=== PATIENT | male | born 1990 | race Caucasian/White ===

== ENCOUNTER 2016-05-13 14:05 | Inpatient (IN) | payer OTHER ==
[~2016-05-13] VITALS: Ht 182.9 cm; Wt 69.5 kg
[~2016-05-13 14:05] MED LIST: /LAMO10TA; /LAMO10TA PO; /QUET10TA; ABIL2TAB; ABIL400I IM; ABIL5TAB; ADDE5TAB5 PO; ADV100INH INH; ALBU17IN2; ALBU17IN2 INH; BENA25CA2 PO; BENZ2TA PO; BENZ5TA PO; CETI10TA PO; COGE1INJ PO; CONC18TA OR; DEPA1TAB3 PO; DEPA250T2 PO; DEPA250T3 OR; DEPA500T; DEPA500T OR; DEPA500T2; DEPA500T2 PO; DIVA500T9 PO; DIVALPROEX PO; EFFE75CA75 PO; FEROUS SULFATE; FERR325T PO; FERR325T3 PO; FOCALIN XR; Focalin; HALO20TA PO; HALO5TA PO; HYDR25T PO; LAMI25TA; LEXA1TAB2 PO; MOBI7.5T10 PO; NAPR500T2 PO; NEUR600T OR; No Historical Meds; PRIL20CA; PROA1AER IN; PROV90AE; QUET1TAB10 PO; RANI150T PO; RANI15TA PO; RANITIDINE PO; RISP3TAB18 PO; RISP4TAB33 PO; SERO1TAB2 PO; SERO50TA PO; SERT-138 PO; SERT25TA85 PO; SERTRALINE PO; SING10TA31; Singulair; TRAZ100T; TRAZ150T14 PO; TRAZ50TA OR; TRAZ50TA4 PO; TRAZADONE; VENL37TA PO; VOLTERAN; ZOLO100T PO; ZOLO50TA PO; ZRYTEC PO; ZYRT10TA2 PO; haldol PO; prilosec PO; singulair OR; singulair PO
[2016-05-13 14:52] LABS: MEAN CORPUSCULAR HEMOGLOBIN 34.1 pg (27.0-33.0); MEAN CORPUSCULAR HGB CONC 34.8 g/dl (32.0-36.5); MEAN CORPUSCULAR VOLUME 98.1 fl (80.0-96.0); RED CELL DISTRIBUTION WIDTH 12.3 % (11.5-14.5); WHITE BLOOD COUNT 5.5 K/mm3 (4.0-10.0)
[2016-05-13 15:11] LABS: AMPHETAMINES LEVEL URINE NEGATIVE (NEGATIVE); BENZODIAZEPINES URINE NEGATIVE (NEGATIVE); COCAINE METABOLITE URINE NEGATIVE (NEGATIVE); CONTROL LINE INT CTR LINE PRESENT; METHADONE URINE NEGATIVE (NEGATIVE); OPIATES URINE NEGATIVE (NEGATIVE); TRICYCLIC ANTIDEPRESS URINE NEGATIVE (NEGATIVE)
[2016-05-13 15:23] LABS: ALBUMIN 4.1 GM/DL (3.2-5.2); ALBUMIN/GLOBULIN RATIO 1.24 (1.00-1.93); ALKALINE PHOSPHATASE 108 U/L (45-117); ALT/SGPT 484 U/L (12-78); ANION GAP 8 MEQ/L (8-16); AST/SGOT 229 U/L (15-37); BILIRUBIN,DIRECT 0.1 MG/DL (0.0-0.2); BILIRUBIN,TOTAL 0.3 MG/DL (0.2-1.0); BLOOD UREA NITROGEN 18 MG/DL (7-18); CALCIUM LEVEL 8.8 MG/DL (8.5-10.1); CARBON DIOXIDE LEVEL 34 MEQ/L (21-32); CHLORIDE LEVEL 102 MEQ/L (98-107); CREATININE FOR GFR 0.83 MG/DL (0.70-1.30); GLOMERULAR FILTRATION RATE > 60.0 (>60); GLUCOSE, FASTING 50 MG/DL (70-105); POTASSIUM SERUM 3.6 MEQ/L (3.5-5.1); SODIUM LEVEL 144 MEQ/L (136-145); TOTAL PROTEIN 7.4 GM/DL (6.4-8.2)
[2016-05-13] MEDS ORDERED: FLUO-144 TOP (17:37)
[2016-05-13] MEDS ORDERED: DOCU100C PO (17:37)
[2016-05-13] MEDS ORDERED: HALO5OI TOP (17:37)
[2016-05-13] MEDS ORDERED: DIVA250T7 PO (17:37)
[2016-05-13] MEDS ORDERED: MIRA3350 PO (17:37)
[2016-05-13] MEDS ORDERED: QUET1TAB9 PO (17:37)
[2016-05-13] MEDS ORDERED: FEXO60CA PO (17:37)
[2016-05-13] MEDS ORDERED: ENSULIQ2 PO (17:38)
--- NOTE | 2016-05-13 18:30 | EDDOCDS ---
Physician Documentation [facility] Name: Pillo Somers Age: 25 yrs Sex: Male : 1990 Arrival Date: 05/13/2016 Time: 14:05 Bed [facility] Private MD: Izzy Tinsley Disposition: 05/13/16 16:40 Hospitalization ordered by Franki Slater for Inpatient Admission. Preliminary diagnosis is Suicidal ideations. - Bed requested for Admit. - Status is Inpatient Admission. rs3 - Condition is Stable. - Problem is an ongoing problem. - Symptoms are unchanged. Historical: - Allergies: Amitriptyline; Haldol (dyskinesia); Loxapine Succinate; Risperdal (dyskinesia); - Home Meds: 1. ferrous sulfate 325 mg (65 mg iron) Oral cpER twice a day 2. Miralax 17 gram Oral pwpk 1 packet once daily 3. Doc-Q-Lace 100 mg oral cap 2 caps once daily 4. divalproex 250 mg oral TbEC 3 tabs hs 5. fexofenadine 60 mg Oral tab daily 6. quetiapine 200 mg oral Tb24 1 tab once daily 7. ranitidine HCl 150 mg Oral cap 2 times per day 8. escitalopram oxalate 20 mg oral tab 1 tab twice a day - PMHx: Celiac disease; Depression; GERD; bipolar; Constipation, Chronic; ADHD; Schizo-Affective Disorder; - PSHx: tubes in ears; Tonsillectomy; - Social history: Smoking status: Patient uses tobacco products, current every day smoker. No barriers to communication noted, The patient speaks fluent Martiniquais, Speaks appropriately for age. - Family history: Not pertinent. - : The pt / caregiver states he / she is not on anticoagulants. Home medication list is obtained from the patient. - Exposure Risk Screening:: None identified. Vital Signs: 05/13 14:08 BP 98 / 66; Pulse 78; Resp 18 S; Temp 98.0; Pulse Ox 100% on R/A; Weight 52.62 kg / dd6 116.01 lbs (M); Height 6 ft. 0 in. (182.88 cm) (M); 18:23 BP 97 / 65; Pulse 82; Resp 18; Temp 97.5; Pulse Ox 99% on R/A; Pain 0/10; tmm1 14:08 Body Mass Index 15.73 (52.62 kg, 182.88 cm) dd6 MDM: 14:18 Consult PFS/PSA/Marble Installation Helper ordered. sd1 14:18 Consult PFS/PSA/Marble Installation Helper: Patient's case requires discussion with on-call sd1 Psychiatrist ordered. 14:18 PSA/PFS to call Nursing Sous Chef, to enter patient data on [place] Safe Act if patient sd1 involuntarily admitted or transferred for SI or HI ordered. 14:18 Confirm accurate psychiatric medication list and times of last dosage ordered. sd1 14:18 Detain Pt Until Medically/PFS Cleared ordered. sd1 14:20 Acetaminophen Level Ordered. EDMS 14:20 Basic Metabolic Profile Ordered. EDMS 14:20 Complete Blood Count Ordered. EDMS 14:20 Drug Eval Toxicology ED Only Ordered. EDMS 14:20 Ethyl Alcohol (ethanol) Ordered. EDMS 14:20 Liver Profile Ordered. EDMS 14:20 Salicylate Level Ordered. EDMS 14:20 Thyroid Stimulating Hormone Ordered. EDMS 15:36 Financial registration complete. gjb 15:39 [facility] Payment Agreement was scanned into [employer] and attached to record. gjb 16:04 REGULAR DIET ROOM SERVICE ED+DIET ordered. EDMS 16:38 Acetaminophen Level Reviewed. ke 16:38 Basic Metabolic Profile Reviewed. ke 16:38 Complete Blood Count Reviewed. ke 16:38 Liver Profile Reviewed. ke 16:38 Salicylate Level Reviewed. ke 16:38 Drug Eval Toxicology ED Only Reviewed. ke 16:38 Ethyl Alcohol (ethanol) Reviewed. ke 16:38 Thyroid Stimulating Hormone Reviewed. ke 16:40 BED REQUEST+ADM ordered. EDMS 17:00 Consult PFS/PSA/Marble Installation Helper complete. rb 17:23 Admit to [facility]: ordered. EDMS 17:48 [facility] Legal paperwork was scanned into [employer] and attached to record. cs 17:57 [facility] Legal paperwork was scanned into [employer] and attached to record. cs 18:18 Consult PFS/PSA/Marble Installation Helper: Patient's case requires discussion with on-call rb Psychiatrist complete. 18:18 PSA/PFS to call Nursing Sous Chef, to enter patient data [place] Safe [place] if patient rb involuntarily admitted or transferred for SI or HI complete. Signatures: Dispatcher [employer] EDMS Sabrina Diop MD MD sd1 Chela Guerra, RN RN srm Isabella Bonilla, PSA PSA rb Clarke Luke, PSA PSA cs Shawn Díaz, CHOIR LEADER CHOIR LEADER Allyson Hyatt RN RN rs3 Margie Alves The chart was reviewed and I authenticate all verbal orders and agree with the evaluation and treatment provided.Attachments: 15:39 [facility] Payment Agreement gjjuliet [email or web address]
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
[2016-05-13 18:45] VITALS: BP 102/65
[2016-05-13] MEDS ORDERED: MAALOX 30 ML SUSP *UDC PO PRN (20:30)
[2016-05-13] MEDS ORDERED: ALBUTEROL 90 MCG/ACT 8GM HFA INHALER INH PRN (20:30)
[2016-05-13] MEDS ORDERED: HALOBETASOL PROPION 0.05% OINT 15 GM TOP PRN (20:30)
[2016-05-13] MEDS ORDERED: FLUOCINONIDE 0.05% OINT 15 GM TOP PRN (20:30)
[2016-05-13] MEDS ORDERED: traZODone 50 MG TAB PO PRN (20:30)
[2016-05-13] MEDS ORDERED: MOM 30ML SUSPENSION UDC PO PRN (20:30)
[2016-05-13] MEDS: FERROUS SULFATE 325MG TAB PO SCH (21:30)
[2016-05-13] MEDS: DIVALPROEX 250MG *ER* TAB PO SCH (21:30)
[2016-05-13] MEDS: NICOTINE 21MG/24HR 1 EA TRANSDERMAL TD SCH (21:32)
[2016-05-14] MEDS: IBUPROFEN 400 MG TAB PO PRN ×3 (01:01→21:14)
[2016-05-14 06:28] VITALS: BP 105/61
[2016-05-14] MEDS: DOCUSATE SODIUM 100 MG CAP PO SCH (09:11)
[2016-05-14] MEDS: FERROUS SULFATE 325MG TAB PO SCH ×2 (09:11→21:14)
[2016-05-14] MEDS: VENLAFAXINE 37.5 MG TAB PO SCH (09:11)
[2016-05-14] MEDS: MIRALAX *UNIT DOSE* 17GM PACKET PO SCH (09:11)
[2016-05-14] MEDS: FEXOFENADINE 60 MG TAB PO SCH (09:11)
[2016-05-14] MEDS: NICOTINE 21MG/24HR 1 EA TRANSDERMAL TD SCH (09:12)
[2016-05-14] MEDS: ANALGESIC BALM CRM 120 GM TOP PRN ×2 (09:15→21:15)
[2016-05-14 18:04] VITALS: BP 103/64
[2016-05-14] MEDS: DIVALPROEX 250MG *ER* TAB PO SCH (21:14)
[2016-05-15 06:12] VITALS: BP 102/63
[2016-05-15] MEDS ORDERED: INFLUENZA QUADRIVALENT PF VACCINE 0.5ML SYRINGE/VIAL (90686) IM ONE (09:00)
[2016-05-15] MEDS: DOCUSATE SODIUM 100 MG CAP PO SCH (09:00)
[2016-05-15] MEDS: VENLAFAXINE 37.5 MG TAB PO SCH (09:56)
[2016-05-15] MEDS: FERROUS SULFATE 325MG TAB PO SCH ×2 (09:56→21:53)
[2016-05-15] MEDS: FEXOFENADINE 60 MG TAB PO SCH (09:56)
[2016-05-15] MEDS: NICOTINE 21MG/24HR 1 EA TRANSDERMAL TD SCH (09:57)
[2016-05-15] MEDS ORDERED: IBUPROFEN 200 MG TAB PO PRN (16:30)
[2016-05-15] MEDS: ANALGESIC BALM CRM 120 GM TOP PRN (17:22)
[2016-05-15 18:00] VITALS: BP 99/51
[2016-05-15] MEDS: FLUTICASONE PROP 0.05% NASAL SPRAY 16 GM (FLONASE) SCH (18:05)
[2016-05-15 18:33] LABS: INR 0.98
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
--- NOTE | 2016-05-15 19:29 | EDDOCDS ---
Physician Documentation [facility] Name: Pillo Somers Age: 25 yrs Sex: Male : 1990 Arrival Date: 05/13/2016 Time: 14:05 Bed [facility] Private MD: Izzy Tinsley Disposition: 05/13/16 16:40 Hospitalization ordered by Franki Slater for Inpatient Admission. Preliminary diagnosis is Suicidal ideations. - Bed requested for Admit. - Status is Inpatient Admission. rs3 - Condition is Stable. - Problem is an ongoing problem. - Symptoms are unchanged. Historical: - Allergies: Amitriptyline; Haldol (dyskinesia); Loxapine Succinate; Risperdal (dyskinesia); - Home Meds: 1. ferrous sulfate 325 mg (65 mg iron) Oral cpER twice a day 2. Miralax 17 gram Oral pwpk 1 packet once daily 3. Doc-Q-Lace 100 mg oral cap 2 caps once daily 4. divalproex 250 mg oral TbEC 3 tabs hs 5. fexofenadine 60 mg Oral tab daily 6. quetiapine 200 mg oral Tb24 1 tab once daily 7. ranitidine HCl 150 mg Oral cap 2 times per day 8. escitalopram oxalate 20 mg oral tab 1 tab twice a day - PMHx: Celiac disease; Depression; GERD; bipolar; Constipation, Chronic; ADHD; Schizo-Affective Disorder; - PSHx: tubes in ears; Tonsillectomy; - Social history: Smoking status: Patient uses tobacco products, current every day smoker. No barriers to communication noted, The patient speaks fluent Croatian, Speaks appropriately for age. - Family history: Not pertinent. - : The pt / caregiver states he / she is not on anticoagulants. Home medication list is obtained from the patient. - Exposure Risk Screening:: None identified. Vital Signs: 05/13 14:08 BP 98 / 66; Pulse 78; Resp 18 S; Temp 98.0; Pulse Ox 100% on R/A; Weight 52.62 kg / dd6 116.01 lbs (M); Height 6 ft. 0 in. (182.88 cm) (M); 18:23 BP 97 / 65; Pulse 82; Resp 18; Temp 97.5; Pulse Ox 99% on R/A; Pain 0/10; tmm1 14:08 Body Mass Index 15.73 (52.62 kg, 182.88 cm) dd6 MDM: 14:18 Consult PFS/PSA/Aerospace Quality Engineer ordered. sd1 14:18 Consult PFS/PSA/Aerospace Quality Engineer: Patient's case requires discussion with on-call sd1 Psychiatrist ordered. 14:18 PSA/PFS to call Nursing Hadoop Infrastructure Architect, to enter patient data on [place] Safe Act if patient sd1 involuntarily admitted or transferred for SI or HI ordered. 14:18 Confirm accurate psychiatric medication list and times of last dosage ordered. sd1 14:18 Detain Pt Until Medically/PFS Cleared ordered. sd1 14:20 Acetaminophen Level Ordered. EDMS 14:20 Basic Metabolic Profile Ordered. EDMS 14:20 Complete Blood Count Ordered. EDMS 14:20 Drug Eval Toxicology ED Only Ordered. EDMS 14:20 Ethyl Alcohol (ethanol) Ordered. EDMS 14:20 Liver Profile Ordered. EDMS 14:20 Salicylate Level Ordered. EDMS 14:20 Thyroid Stimulating Hormone Ordered. EDMS 15:36 Financial registration complete. gjb 15:39 [facility] Payment Agreement was scanned into [employer] and attached to record. gjb 16:04 REGULAR DIET ROOM SERVICE ED+DIET ordered. EDMS 16:38 Acetaminophen Level Reviewed. ke 16:38 Basic Metabolic Profile Reviewed. ke 16:38 Complete Blood Count Reviewed. ke 16:38 Liver Profile Reviewed. ke 16:38 Salicylate Level Reviewed. ke 16:38 Drug Eval Toxicology ED Only Reviewed. ke 16:38 Ethyl Alcohol (ethanol) Reviewed. ke 16:38 Thyroid Stimulating Hormone Reviewed. ke 16:40 BED REQUEST+ADM ordered. EDMS 17:00 Consult PFS/PSA/Aerospace Quality Engineer complete. rb 17:23 Admit to [facility]: ordered. EDMS 17:48 [facility] Legal paperwork was scanned into [employer] and attached to record. cs 17:57 [facility] Legal paperwork was scanned into [employer] and attached to record. cs 18:18 Consult PFS/PSA/Aerospace Quality Engineer: Patient's case requires discussion with on-call rb Psychiatrist complete. 18:18 PSA/PFS to call Nursing Hadoop Infrastructure Architect, to enter patient data on [place] Safe [place] if patient rb involuntarily admitted or transferred for SI or HI complete. 05/14 08:45 T-Sheet-- Draft Copy was scanned into [employer] and attached to record. [facility] Signatures: Dispatcher [employer] Sabrina Rojas MD MD sd1 Chela Guerra RN RN hitesh Bonilla, Isabella, PSA PSA rb Clarke Luke, PSA PSA Shawn Naqvi, PEWTER FINISHER PEWTER FINISHER Allyson Hyatt RN RN rs3 Margie Alves Sarah [facility] The chart was reviewed and I authenticate all verbal orders and agree with the evaluation and treatment provided.Attachments: 05/13 15:39 [facility] Payment Agreement gjb 05/14 08:45 T-Sheet-- Draft Copy [facility] Chart Complete MTDD
--- NOTE | 2016-05-15 19:29 | EDDOCDS ---
Physician Documentation [facility] Name: Pillo Somers Age: 25 yrs Sex: Male : 1990 Arrival Date: 05/13/2016 Time: 14:05 Bed [facility] Private MD: Izzy Tinsley Disposition: 05/13/16 16:40 Hospitalization ordered by Franki Slater for Inpatient Admission. Preliminary diagnosis is Suicidal ideations. - Bed requested for Admit. - Status is Inpatient Admission. rs3 - Condition is Stable. - Problem is an ongoing problem. - Symptoms are unchanged. Historical: - Allergies: Amitriptyline; Haldol (dyskinesia); Loxapine Succinate; Risperdal (dyskinesia); - Home Meds: 1. ferrous sulfate 325 mg (65 mg iron) Oral cpER twice a day 2. Miralax 17 gram Oral pwpk 1 packet once daily 3. Doc-Q-Lace 100 mg oral cap 2 caps once daily 4. divalproex 250 mg oral TbEC 3 tabs hs 5. fexofenadine 60 mg Oral tab daily 6. quetiapine 200 mg oral Tb24 1 tab once daily 7. ranitidine HCl 150 mg Oral cap 2 times per day 8. escitalopram oxalate 20 mg oral tab 1 tab twice a day - PMHx: Celiac disease; Depression; GERD; bipolar; Constipation, Chronic; ADHD; Schizo-Affective Disorder; - PSHx: tubes in ears; Tonsillectomy; - Social history: Smoking status: Patient uses tobacco products, current every day smoker. No barriers to communication noted, The patient speaks fluent Gambian, Speaks appropriately for age. - Family history: Not pertinent. - : The pt / caregiver states he / she is not on anticoagulants. Home medication list is obtained from the patient. - Exposure Risk Screening:: None identified. Vital Signs: 05/13 14:08 BP 98 / 66; Pulse 78; Resp 18 S; Temp 98.0; Pulse Ox 100% on R/A; Weight 52.62 kg / dd6 116.01 lbs (M); Height 6 ft. 0 in. (182.88 cm) (M); 18:23 BP 97 / 65; Pulse 82; Resp 18; Temp 97.5; Pulse Ox 99% on R/A; Pain 0/10; tmm1 14:08 Body Mass Index 15.73 (52.62 kg, 182.88 cm) dd6 MDM: 14:18 Consult PFS/PSA/Family Day Care Provider ordered. sd1 14:18 Consult PFS/PSA/Family Day Care Provider: Patient's case requires discussion with on-call sd1 Psychiatrist ordered. 14:18 PSA/PFS to call Nursing [employer], to enter patient data on [place] Safe Act if patient sd1 involuntarily admitted or transferred for SI or HI ordered. 14:18 Confirm accurate psychiatric medication list and times of last dosage ordered. sd1 14:18 Detain Pt Until Medically/PFS Cleared ordered. sd1 14:20 Acetaminophen Level Ordered. EDMS 14:20 Basic Metabolic Profile Ordered. EDMS 14:20 Complete Blood Count Ordered. EDMS 14:20 Drug Eval Toxicology ED Only Ordered. EDMS 14:20 Ethyl Alcohol (ethanol) Ordered. EDMS 14:20 Liver Profile Ordered. EDMS 14:20 Salicylate Level Ordered. EDMS 14:20 Thyroid Stimulating Hormone Ordered. EDMS 15:36 Financial registration complete. gjb 15:39 [facility] Payment Agreement was scanned into [employer] and attached to record. gjb 16:04 REGULAR DIET ROOM SERVICE ED+DIET ordered. EDMS 16:38 Acetaminophen Level Reviewed. ke 16:38 Basic Metabolic Profile Reviewed. ke 16:38 Complete Blood Count Reviewed. ke 16:38 Liver Profile Reviewed. ke 16:38 Salicylate Level Reviewed. ke 16:38 Drug Eval Toxicology ED Only Reviewed. ke 16:38 Ethyl Alcohol (ethanol) Reviewed. ke 16:38 Thyroid Stimulating Hormone Reviewed. ke 16:40 BED REQUEST+ADM ordered. EDMS 17:00 Consult PFS/PSA/Family Day Care Provider complete. rb 17:23 Admit to [facility]: ordered. EDMS 17:48 [facility] Legal paperwork was scanned into [employer] and attached to record. cs 17:57 [facility] Legal paperwork was scanned into [employer] and attached to record. cs 18:18 Consult PFS/PSA/Family Day Care Provider: Patient's case requires discussion with on-call rb Psychiatrist complete. 18:18 PSA/PFS to call [employer], to enter patient data [place] Safe [place] if patient rb involuntarily admitted or transferred for SI or HI complete. 05/14 08:45 T-Sheet-- Draft Copy was scanned into [employer] and attached to record. [facility] Signatures: Dispatcher [employer] Sabrina Rojas MD MD sd1 Chela Guerra RN RN hitesh Bonilla, Isabella, PSA PSA rb Clarke Luke, PSA PSA Shawn Naqvi, CABLE SWAGER CABLE SWAGER Allyson Hyatt RN RN rs3 Margie Alves Sarah [facility] The chart was reviewed and I authenticate all verbal orders and agree with the evaluation and treatment provided.Attachments: 05/13 15:39 [facility] [place] Agreement gjb 05/14 08:45 T-Sheet-- Draft Copy [facility] Chart Complete MTDD
[2016-05-15] MEDS: LITHIUM CARBONATE 300 MG CAP PO SCH (21:53)
[2016-05-15] MEDS: IBUPROFEN 400 MG TAB PO SCH (22:00)
--- NOTE | 2016-05-15 23:23 | HPEPDOC ---
[facility] History & Physical History and Physical DATE OF ADMISSION: May 13, 2016 at 18:37 Date of this interview: 05/14/2016 CHIEF COMPLAINT: Suicidal ideations, Worsening depressive symptoms. HISTORY OF THE PRESENT ILLNESS: This is a 25-year-old male with past psychiatric history significant for MDD recurrent severe with psychotic features. This is patient's 13th admission at [facility] mental health unit. Similar to last presentation, patient presents reporting worsening depressive symptoms associated with auditory hallucinations commanding him to kill himself. Of note patient has reportedly lost 100 pounds in the last year and a half. He reports being diagnosed with a gluten allergy and reports being followed by a GI doctor. He reports having a follow-up appointment scheduled in late May 2016. He is status post an upper GI and lower GI scope. Patient reports over the last month worsening agitation and irritability and insomnia as well as ongoing weight loss and worsening auditory hallucinations commanding him to kill himself. Patient has history of suicide attempt last in 2008 by attempting to jump from a moving vehicle. He was last hospitalized with similar symptoms at [facility]. Patient reports compliance with preadmission psychotropic medication regimen which includes Depakote, Lexapro, and Seroquel. Also of note, patient has elevated liver enzymes. Depakote will be stopped. Consult for hospitalist evaluation of elevated over enzymes will be ordered. Historical: - Allergies: Amitriptyline; Haldol (dyskinesia); Loxapine Succinate; Risperdal ( dyskinesia); - Home Meds: 1. ferrous sulfate 325 mg (65 mg iron) Oral cpER twice a day 2. Miralax 17 gram Oral pwpk 1 packet once daily 3. Doc-Q-Lace 100 mg oral cap 2 caps once daily 4. divalproex 250 mg oral TbEC 3 tabs hs 5. fexofenadine 60 mg Oral tab daily 6. quetiapine 200 mg oral Tb24 1 tab once daily 7. ranitidine HCl 150 mg Oral cap 2 times per day 8. escitalopram oxalate 20 mg oral tab 1 tab twice a day - PMHx: Celiac disease; Depression; GERD; bipolar; Constipation, Chronic; ADHD; Schizo-Affective Disorder; - PSHx: tubes in ears; Tonsillectomy; - Social history: Smoking status: Patient uses tobacco products, current every day smoker. No barriers to communication noted, The patient speaks fluent Hebrew, Speaks appropriately for age. - Family history: Not pertinent. - : The pt / caregiver states he / she is not on anticoagulants. Home medication list is obtained from the patient. Substance history: Patient report recent use of cannabis. He denies abuse of alcohol. He denies use of other illicit substances. VITAL SIGNS: Please see below LABORATORY DATA: Please see below. MENTAL STATUS EXAMINATION: Patient is a 35-year-old male, cachectic, disheveled, anxious in manner. Speech:RRR, spontaneous Eye contact: Good Thought processes: Goal-directed Thought content: Logical Description of abnormal or psychotic thoughts: Patient currently denies auditory hallucinations. He reported distressing auditory hallucinations that commanded him to kill himself prior to admission. Judgment: Fair Insight: Poor Orientation to time, place and person. Recent and remote memory: Intact. Immediate short-term and long-term memory is: intact. Attention span and concentration: fair. Mood: [Anxious Affect: Anxious DIAGNOSES: 1. MDD recurrent severe with psychotic features PROBLEM LIST: 1. depression 2. auditory hallucinations 3. SI w/o plan 4. anxiety INITIAL TREATMENT PLAN: 1 consult hospitalist for evaluation of elevated liver enzymes. HIV, HEP C, B, A, D and E ABs ordered. 2. Discontinue Depakote as metabolized by liver. 3. Increase currently prescribed antidepressant Effexor from 75mg to 150mg by mouth daily for depressive symptoms. 4. Patient gives informed consent to start lithium 300 mg by mouth daily at bedtime for mood stabilization ESTIMATED LENGTH OF STAY: 5-7 days. TIME SPENT COUNSELING AND COORDINATING INITIAL CARE: 60 minutes. Laboratory Data 24H Labs Laboratory Tests 2 05/15/16 18:00: Prealbumin 19.7L, Prothromb Time International Ratio 0.98, Prothrombin Time 13.1 Medications Scheduled (Ensure) 1 Liq Liq 1 LIQ PO TID (Reported) Divalproex Sodium (Divalproex Sodium ER) 250 Mg Tab 750 MG PO QHS (Reported) Docusate Sodium (Docusate Sodium) 100 Mg Cap 200 MG PO DAILY (Reported) Escitalopram Oxalate (Lexapro) 20 Mg Tab 20 MG PO DAILY (Reported) Ferrous Sulfate (Ferrous Sulfate) 325 Mg Tab 325 MG PO BID (Reported) Fexofenadine HCl (Fexofenadine HCl) 60 Mg Tab 60 MG PO DAILY (Reported) Polyethylene Glycol (Miralax) 1 Pow Pow 17 GM PO Q2D (Reported) Quetiapine Fumerate (Quetiapine Fumarate) 200 Mg Tab 200 MG PO QHS (Reported) Ranitidine Hcl (Zantac) 150 Mg Tab 150 MG PO BID (Reported) Scheduled PRN Albuterol Sulfate (Proventil Hfa) 167 Puff/6.7 Gm Aers 2 PUFF INH Q4HP PRN PRN SHORTNESS OF BREATH (Reported) Fluocinonide (Fluocinonide 0.05%) 1 Dose/15 Gm Oint 1 DOSE TOP PRN PRN PRN DERMATITIS (Reported) APPLY TO FEET Halobetasol Propionate (Halobetasol Propionate) 0.05 % Oin 1 DOSE TOP PRN PRN PRN DERMATITIS (Reported) APPLY TO FEET Allergies Coded Allergies: Amitriptyline (Verified Allergy, Mild, Rash, 11/26/14) Thioridazine (Verified Allergy, Mild, EPS, 11/26/14) Risperidone (Verified Adverse Reaction, Unknown, EPS, 05/13/16) MASSIEL ALEXANDRE MD May 15, 2016 23:23
--- NOTE | 2016-05-15 23:24 | IPNPDOC ---
[facility] Progress Note Progress Note DATE OF SERVICE: 05/15/16 SUBJECTIVE: Patient anxious regarding pending lab results which may give etiology of elevated liver enzymes. Patient continues to report poor energy, feelings of hopelessness, helplessness, and worthlessness. He reports ongoing significant depression. Patient reports fair appetite and sleep. He denies SI/HI and denies again today prescence of commanding AHs which told him to kill himself. Patient is med compliant. He denies abd pain. He has been no behavioral problem on the unit. OBJECTIVE: VITAL SIGNS: See below. NEW TEST RESULTS: See below. CURRENT MEDICATIONS: See below. VITAL SIGNS: Please see below LABORATORY DATA: Please see below. MENTAL STATUS EXAMINATION: Patient is a 35-year-old male, cachectic, disheveled, anxious in manner. Speech:RRR, spontaneous Eye contact: Good Thought processes: Goal-directed Thought content: concerned with pending results of HEP A-E panels, HIV, and eval from Hospitalist. Description of abnormal or psychotic thoughts: Patient currently denies auditory hallucinations. He reported distressing auditory hallucinations that commanded him to kill himself prior to admission. Judgment: Fair Insight: Poor Orientation to time, place and person. Recent and remote memory: Intact. Immediate short-term and long-term memory is: intact. Attention span and concentration: fair. Mood: [Anxious Affect: Anxious DIAGNOSES: 1. MDD recurrent severe with psychotic features PLAN: 1 PENDING: HIV, HEP C, B, A, D and E ABs ordered. 2. Continue Effexor 150mg by mouth daily for depressive symptoms. 3. Continue [place] 300 mg by mouth daily at bedtime for mood stabilization TIME SPENT: 30 minutes. Vital Signs Vital Signs Date Time Temp Pulse Resp B/P Pulse Ox O2 Delivery O2 Flow Rate FiO2 05/15/16 18:00 98.0 95 16 99/51 05/14/16 08:05 Room Air 05/13/16 18:45 99 Laboratory Data 24H Labs Laboratory Tests 2 05/15/16 18:00: Prealbumin 19.7L, Prothromb Time International Ratio 0.98, Prothrombin Time 13.1 Current Medications Current Medications Medications (Trade) Dose Ordered Sig/Ntaali[place] Route PRN Reason Start Time Stop Time Status Last Admin Dose Admin Al Hydrox/Mg Hydrox/Simethicone (Mylanta) 30 ml Q4HP PRN PO HEARTBURN/INDIGESTION 05/13/16 20:30 06/12/16 20:29 05/13/16 21:30 Albuterol Sulfate (Proventil, Ventolin Hfa) 2 puff Q4HP PRN INH SHORTNESS OF BREATH 05/13/16 20:30 06/12/16 20:29 Carbamide Perox/ Anhydrous Glycerin (Debrox) 10 drop BID AU 05/16/16 09:00 05/19/16 21:01 Clotrimazole (Lotrimin) to rash on feet.and right hand BID TOP 05/16/16 09:00 06/15/16 08:59 Divalproex Sodium (Depakote Er) 750 mg QHS PO 05/13/16 21:00 05/15/16 15:01 DC 05/14/16 21:14 Docusate Sodium (Colace) 200 mg DAILY PO 05/14/16 09:00 06/13/16 08:59 05/14/16 09:11 Famotidine (Pepcid) 20 mg BID PO 05/16/16 09:00 06/15/16 08:59 Ferrous Sulfate (Ferrous Sulfate) 325 mg BID PO 05/13/16 21:00 06/12/16 20:59 05/15/16 21:53 Fexofenadine HCl (Enriqueta) 60 mg DAILY PO 05/14/16 09:00 06/13/16 08:59 05/15/16 09:56 Fluocinonide (Lidex 0.05%) 1 dose BID PRN TOP ITCHING 05/13/16 20:30 06/12/16 20:29 Fluticasone Propionate (Flonase 0.05% Nasal [place]) 2 spray DAILY NA 05/15/16 09:00 06/14/16 08:59 05/15/16 18:05 Halobetasol Propionate (Ultravate 0.05%) 1 dose BIDP PRN TOP DERMATITIS 05/13/16 20:30 06/12/16 20:29 Home Med (Med Rec Complete!) ASDIRECTED XX 05/13/16 17:45 05/13/16 17:45 DC Ibuprofen (Advil) 200 mg Q8HP PRN PO PAIN 05/15/16 16:30 05/15/16 23:02 DC 05/15/16 18:06 Ibuprofen (Advil) 400 mg Q6HP PRN PO PAIN 05/13/16 20:30 05/15/16 16:11 DC 05/14/16 21:14 Ibuprofen (Advil) 400 mg Q8H PO 05/15/16 22:00 06/14/16 21:59 [place] Carbonate ([place] Carbonate) 300 mg QHS PO 05/15/16 21:00 06/14/16 20:59 05/15/16 21:53 Magnesium Hydroxide (Milk Of Magnesia) 30 ml DAILYPRN PRN PO CONSTIPATION 05/13/16 20:30 05/15/16 15:19 DC Menthol/Methyl Salicylate (Bengay Cream) 1 dose BIDP PRN TOP PAIN 05/13/16 20:30 06/12/16 20:29 05/15/16 17:22 Nicotine (Nicoderm Cq 21mg) 1 patch DAILY TD 05/13/16 22:00 06/12/16 21:59 05/15/16 09:57 Polyethylene Glycol (Miralax) 1 pkt Q2D PO 05/14/16 09:00 06/13/16 08:59 05/14/16 09:11 Trazodone HCl (Desyrel) 50 mg QHSP PRN PO INSOMNIA 05/13/16 20:30 05/15/16 15:19 DC Venlafaxine HCl (Effexor) 75 mg DAILY PO 05/14/16 09:00 05/15/16 15:19 DC 05/15/16 09:56 Venlafaxine HCl (Effexor) 150 mg DAILY PO 05/16/16 09:00 06/15/16 08:59 Allergies Coded Allergies: Amitriptyline (Verified Allergy, Mild, Rash, 11/26/14) Thioridazine (Verified Allergy, Mild, EPS, 11/26/14) Risperidone (Verified Adverse Reaction, Unknown, EPS, 05/13/16) MASSIEL ALEXANDRE MD May 15, 2016 23:24
[2016-05-16] MEDS: IBUPROFEN 400 MG TAB PO SCH ×3 (06:02→23:02)
[2016-05-16 06:57] VITALS: BP 118/69
[2016-05-16 06:57] LABS: MEAN CORPUSCULAR HEMOGLOBIN 34.4 pg (27.0-33.0); MEAN CORPUSCULAR HGB CONC 34.5 g/dl (32.0-36.5); MEAN CORPUSCULAR VOLUME 99.6 fl (80.0-96.0); RED CELL DISTRIBUTION WIDTH 12.5 % (11.5-14.5); WHITE BLOOD COUNT 5.2 K/mm3 (4.0-10.0)
[2016-05-16 07:26] LABS: ALBUMIN 3.1 GM/DL (3.2-5.2); ALBUMIN/GLOBULIN RATIO 1.11 (1.00-1.93); ALKALINE PHOSPHATASE 169 U/L (45-117); ALT/SGPT 1339 U/L (12-78); ANION GAP 6 MEQ/L (8-16); AST/SGOT 642 U/L (15-37); BILIRUBIN,DIRECT 0.1 MG/DL (0.0-0.2); BILIRUBIN,TOTAL 0.3 MG/DL (0.2-1.0); BLOOD UREA NITROGEN 15 MG/DL (7-18); CARBON DIOXIDE LEVEL 30 MEQ/L (21-32); CHLORIDE LEVEL 108 MEQ/L (98-107); CREATININE FOR GFR 0.73 MG/DL (0.70-1.30); GLOMERULAR FILTRATION RATE > 60.0 (>60); GLUCOSE, FASTING 85 MG/DL (70-105); SODIUM LEVEL 144 MEQ/L (136-145); TOTAL PROTEIN 5.9 GM/DL (6.4-8.2)
[2016-05-16] MEDS ORDERED: VENLAFAXINE 37.5 MG TAB PO SCH (09:00)
[2016-05-16] MEDS ORDERED: INFLUENZA QUADRIVALENT PF VACCINE 0.5ML SYRINGE/VIAL (90686) IM ONE (09:00)
[2016-05-16] MEDS: MIRALAX *UNIT DOSE* 17GM PACKET PO SCH (09:24)
[2016-05-16] MEDS: FLUTICASONE PROP 0.05% NASAL SPRAY 16 GM (FLONASE) SCH (09:25)
[2016-05-16] MEDS: NICOTINE 21MG/24HR 1 EA TRANSDERMAL TD SCH (09:25)
[2016-05-16] MEDS: DOCUSATE SODIUM 100 MG CAP PO SCH (09:25)
[2016-05-16] MEDS: FEXOFENADINE 60 MG TAB PO SCH (09:25)
[2016-05-16] MEDS: FERROUS SULFATE 325MG TAB PO SCH ×2 (09:25→22:57)
[2016-05-16] MEDS: FAMOTIDINE 20 MG TAB PO SCH ×2 (09:26→22:57)
[2016-05-16] MEDS: CLOTRIMAZOLE 1% TOPICAL CREAM 30GM TOP SCH ×2 (09:26→23:01)
[2016-05-16 11:31] LABS: HEPATITIS B SURFACE ANTIBODY NEGATIVE (POSITIVE)
[2016-05-16] MEDS: CARBAMIDE PEROXIDE 6.5% OTIC SOLN 15ML AU SCH ×2 (11:46→22:59)
--- NOTE | 2016-05-16 12:36 | REP ---
COMPLETE ABDOMINAL SONOGRAPHY WITH PORTAL VENOUS DOPPLER FLOW ASSESSMENT: HISTORY: Hepatitis. SONOGRAPHIC FINDINGS: Scanning through the right upper quadrant of the abdomen demonstrates a small contracted appearing gallbladder without visible stone or polyp. Common bile duct is normal measuring 0.2 cm in greatest diameter. No focal hepatic lesion is seen. Pancreas is obscured by abdominal gas. A normal caliber aorta is seen measuring 2.0 cm just below the diaphragm, AP dimension. There is a trace of fluid near the spleen. Splenic diameter is normal of 9.2 cm and the spleen is homogeneous. Renal cortical echogenicity pattern is normal bilaterally in the kidneys and renal contours are smooth. No hydronephrosis, cyst, mass or calculus is seen on either side. The right kidney measures 10.4 x 5.8 x 6.5 cm. Left renal dimensions are 10.3 x 4.9 x 5.6 cm. Portal venous Doppler flow study: Resistive index in the hepatic artery is normal 0.79. Flow velocity in the splenic vein is 24.3 cm/s in a normal direction. Venous flow velocity in the portal vein is 30.5 cm/s in the normal direction. The main portal vein is 12 mm in diameter. Intrahepatic portal venous flow velocities are normal. Hepatic vein flow velocity tracings are normal. IMPRESSION: Thin sliver of fluid near the spleen. Small contracted appearing gallbladder. No other morphologic abnormality. Normal portal venous Doppler flow assessment. Signed by Ryan Kahn MD 05/16/2016 01:25 P
--- NOTE | 2016-05-16 13:40 | IPNPDOC ---
Assessment/Plan Date Seen The patient was seen on 05/16/16. Problems Problems: (1) Elevated LFTs Status: Acute Problem Text: * RUQ U/S pending * Complete Hepatitis profile pending. * CMP in AM. (2) Chronic bilateral low back pain Status: Chronic Problem Text: * Plan was to request pain mgmt CLT * Check XR LS Spine (3) Rash Status: Acute Problem Text: * Nystatin powder groin folds. Plan / VTE VTE Prophylaxis Ordered?: No (ambulatory) Subjective Review of Systems CC/HPI The patient is a 25-year-old male admitted with a reason for visit of Depressive Do Unspecified. Events since last encounter Requested to see Pt re Elevated LFTs. Pt states he has had rash groin area. requests pain consult for LBP as well. Objective Physical Examination General Exam: Positive: Alert Eye Exam: Positive: PERRLA Chest Exam: Positive: Clear to auscultation, Normal air movement Heart Exam: Positive: Normal S1, Normal S2, Rate Normal, Regular Rhythm, Negative: Murmurs, Rubs Abdomen Exam: Positive: Normal bowel sounds, Soft, Negative: Hepatospenomegaly, Tenderness Skin Exam: Positive: Nl turgor and temperature, Other skin issue (erythematous rash groin folds. ) Neuro Exam: Positive: Normal Gait Vital Signs/I&O Vital Signs Date Time Temp Pulse Resp B/P Pulse Ox O2 Delivery O2 Flow Rate FiO2 05/16/16 06:57 96.8 84 20 118/69 05/14/16 08:05 Room Air 05/13/16 18:45 99 Laboratory Data Labs 24H Laboratory Tests 2 05/15/16 18:00: Hepatitis B Surface Antibody NEGATIVE, Hepatitis B Surface Antigen NEGATIVE, Hepatitis C Antibody Index 0.1, Prealbumin 19.7L, Prothromb Time International Ratio 0.98, Prothrombin Time 13.1 05/16/16 06:30: Blood Urea Nitrogen 15, Creatinine 0.73, Sodium Level 144, Potassium Level 4.0, Chloride Level 108H, Carbon Dioxide Level 30, Calcium Level 8.0L, Aspartate Amino Transf (AST/SGOT) 642H, Alanine Aminotransferase (ALT/SGPT) 1339H, Alkaline Phosphatase 169H, Total Bilirubin 0.3, Direct Bilirubin 0.1, Total Protein 5.9#L, Albumin 3.1#L, Albumin/Globulin Ratio 1.11, Anion Gap 6L, Glomerular Filtration Rate > 60.0 CBC/BMP Laboratory Tests 05/16/16 06:30 Calcium Level 8.0 L, Aspartate Amino Transf (AST/SGOT) 642 H, Alanine Aminotransferase (ALT/SGPT) 1339 H, Alkaline Phosphatase 169 H, Total Bilirubin 0.3, Direct Bilirubin 0.1, Total Protein 5.9 #L, Albumin 3.1 #L, Red Blood Count 3.13 L, Mean Corpuscular Volume 99.6 H, Mean Corpuscular Hemoglobin 34.4 H , Mean Corpuscular Hemoglobin Concent 34.5, Red Cell Distribution Width 12.5 Brandy Davis May 16, 2016 13:40
[2016-05-16 14:36] LABS: HIV SCRN NEGATIVE (NEGATIVE)
[2016-05-16 14:37] LABS: CONTROL LINE INT CTR LINE PRESENT; HIV SCRN1 NEGATIVE (NEGATIVE)
--- NOTE | 2016-05-16 15:01 | REP ---
Lumbar spine series: Five views. History: Low back pain. Comparison study: December 22, 2010. Findings: Lumbar vertebral body heights are preserved. Alignment is normal. There is some straightening of the normal lumbar lordosis, but this is unchanged. Disc spaces are maintained. Pedicles and posterior elements are intact. Sacrum and SI joints are unremarkable. Facets are normally aligned. There is no evidence of spondylolysis or spondylolisthesis. There is a moderate amount of colonic stool. Ingested material is seen distending the stomach. Impression: Straightening. No bony abnormality. Moderate amount of formed stool and some gastric distension seen. Signed by Ryan Kahn MD 05/16/2016 03:21 P
[2016-05-16] MEDS: NYSTATIN 100,000 UNITS/GM TOPICAL PWD 15 GM TOP SCH ×2 (15:29→22:58)
[2016-05-16 18:00] VITALS: BP 102/56
[2016-05-16 19:00] VITALS: BP 112/58
[2016-05-16 19:05] VITALS: BP 116/69
[2016-05-16 19:10] VITALS: BP 109/64
[2016-05-16 19:37] LABS: BASO % 0.6 % (0.0-1.0); EOS # 0.1 K/mm3 (0.0-0.50); LARGE UNSTAINED CELL # 0.1 K/mm3 (0.0-0.4); LARGE UNSTAINED CELL % 1.4 % (0.0-4.0); LYMPH # 1.5 K/mm3 (1.5-6.5); LYMPH % 19.4 % (24.0-44.0); MEAN CORPUSCULAR HEMOGLOBIN 34.2 pg (27.0-33.0); MEAN CORPUSCULAR HGB CONC 34.6 g/dl (32.0-36.5); MEAN CORPUSCULAR VOLUME 98.9 fl (80.0-96.0); MONO # 0.4 K/mm3 (0.0-0.8); MONO % 5.6 % (0.0-5.0); NEUTROPHILS # 5.2 K/mm3 (1.8-7.7); NEUTROPHILS % 71.9 % (36.0-66.0); PLATELET COUNT, AUTOMATED 172 k/mm3 (150-450); RED CELL DISTRIBUTION WIDTH 13.3 % (11.5-14.5); WHITE BLOOD COUNT 7.3 K/mm3 (4.0-10.0)
[2016-05-16 20:07] LABS: ALBUMIN 3.3 GM/DL (3.2-5.2); ALKALINE PHOSPHATASE 199 U/L (45-117); ALT/SGPT 1147 U/L (12-78); ANION GAP 5 MEQ/L (8-16); AST/SGOT 461 U/L (15-37); BILIRUBIN,TOTAL 0.2 MG/DL (0.2-1.0); BLOOD UREA NITROGEN 12 MG/DL (7-18); CALCIUM LEVEL 8.3 MG/DL (8.5-10.1); CARBON DIOXIDE LEVEL 32 MEQ/L (21-32); CHLORIDE LEVEL 107 MEQ/L (98-107); CREATININE FOR GFR 0.71 MG/DL (0.70-1.30); GLOMERULAR FILTRATION RATE > 60.0 (>60); GLUCOSE, FASTING 99 MG/DL (70-105); SODIUM LEVEL 144 MEQ/L (136-145); TOTAL PROTEIN 6.3 GM/DL (6.4-8.2)
--- NOTE | 2016-05-16 20:27 | HPE ---
DATE OF ADMISSION: 05/15/2016 HISTORY OF PRESENT ILLNESS: Please refer to psychiatric history and evaluation for further details on this admission. This examination and history is intended for medical issues, which may need treatment, followup or consultation on this 25-year-old male. ALLERGIES: AMITRIPTYLINE, RISPERIDONE, THIORIDAZINE. PAST MEDICAL HISTORY: 1. Asthma. 2. Bipolar disorder. 3. Attention deficit disorder (ADD). 4. Intermittent explosive disorder. 5. Chronic hyperextension of knees. 6. Iron deficiency. 7. Constipation. 8. Chronic back pain. PAST SURGICAL HISTORY: 1. Tonsillectomy. 2. Adenoidectomy. 3. Pressure equalizing (PE) tubes. 4. Myringotomy bilateral. 5. Colonoscopy age 19 for hematochezia. SOCIAL HISTORY: Resides in [place]. He is single. He smokes about one pack of cigarettes per day. He does not drink alcohol. He does not use recreational drugs. FAMILY HISTORY: Mother alive, history of chronic pulmonary obstructive disease (COPD) and congestive heart failure (CHF). Father alive with COPD and remains incarcerated. HOME MEDICATIONS: - albuterol HFA two puffs every 4 hours as needed for shortness of breath or wheeze - Depakote 750 mg by mouth nightly - Colace 200 mg by mouth daily - Ensure liquid one by mouth three times a day - escitalopram 20 mg by mouth daily - ferrous sulfate 325 by mouth twice a day - fexofenadine 60 mg by mouth daily - fluocinonide 0.05% topically to rash on hands and feet - halobetasol propionate 0.05% ointment twice a day as needed to rash - Seroquel 200 mg by mouth nightly - ranitidine 150 mg by mouth twice a day LABORATORY STUDIES: WBC 5.5, hemoglobin 13.3, hematocrit 38.3, platelets 218. Electrolytes are normal. AST was elevated at 229, ALT of 484. REVIEW OF SYSTEMS: No complaint of headaches, no blurry or double vision, no fever, no chills, no tinnitus, no hoarseness, no difficulty swallowing, no lightheadedness, no vertigo. CARDIOVASCULAR: No complaints of chest pain, shortness of breath, palpitations or edema. RESPIRATORY: No current cough. No sputum production. No hemoptysis. No orthopnea, no wheeze. GASTROINTESTINAL (GI): Weight loss, constipation, no hematochezia, no melena. No current complaints of abdominal pain. GENITOURINARY (): No hematuria, or history of frequency. MUSCULOSKELETAL: Complaining of low back pain. No joint redness or swelling. ENDOCRINE: No polyuria, No polyuria, polydipsia, or polyphagia. HEMATOLOGIC: He has a history of iron deficiency anemia. NEUROLOGICAL: No history of seizures, paresthesias, paralysis. PSYCHOLOGICAL: See psychiatric history of present illness (HPI). PHYSICAL EXAMINATION: 25-year-old, alert, cooperative male in no acute distress. VITAL SIGNS: Height 72 inches, weight 59.1 kilograms. Body mass index (BMI) 17.7. Blood pressure 102/63, pulse 92, respirations 16, temperature 96.7. GENERAL: The patient is awake, alert and oriented times three. HEENT: Pupils equal, round, reactive to light. Extraocular muscles intact. Cornea and sclerae clear. Conjunctiva is normal. No facial asymmetry. Pharynx, tongue and gum is pink and moist. Tongue is midline. NECK: Neck is supple without lymphadenopathy. No thyromegaly. No goiter. CHEST: Clear to auscultation without wheeze or retraction. HEART: Heart is regular. ABDOMEN: Benign. Bowel sounds positive. Genitourinary ()/Rectal: Not done. Extremities: Equal strength with full range of motion. No clubbing, cyanosis, and edema. Peripheral pulses are equal and palpable bilaterally. SKIN: Warm and dry. Bilateral feet are very dry, heels, toes, between toes and scaly. He has some reddened rash at the base of the toes, left greater than right. Left hands between the fingers are red and scaly rash. Hands are dry. Peripheral pulses equal and comparable bilaterally. Tympanic membranes (TMs) have wax bilaterally. IMPRESSION AND PLAN: 1. Wax impactions. Debrox two drops to each ear nightly. 2. Pain consultation for low back pain. States he has it with flexion, extension and ambulation. No tingling or numbness of the extremities. Will consider a pain consult. Advil 400 mg by mouth every 6 hours as needed for pain. 3. Dry, cracked feet. Tinea pedis, add also clotrimazole twice a day to rash on feet and hands in addition to the other ointment. 4. History of asthma, currently stable. 5. History of gastrointestinal reflux disease (GERD), continue famotidine. 6. History of anemia. Continue iron . 7. Nicotine patch available. 8. Dietary consult for low weight. 9. Elevated liver function tests (LFTs). Repeat in the a.m. Hepatitis panel is pending. Ultrasound in the a.m. The patient was also seen by hospitalist , Dr. Whittaker.
[2016-05-16 20:45] LABS: AMYLASE 37 U/L (25-115)
[2016-05-16] MEDS: LITHIUM CARBONATE 300 MG CAP PO SCH (22:57)
[2016-05-17] MEDS: IBUPROFEN 400 MG TAB PO SCH ×3 (06:00→21:54)
--- NOTE | 2016-05-17 06:27 | IPNPDOC ---
[facility] Progress Note Progress Note DATE OF SERVICE: 05/16/16 SUBJECTIVE: Patient anxious regarding pending lab results. He was informed HIV is negative as well as hepatitis B and C. Patient informed remaining hepatitis panels are pending. Patient informed his hemoglobin and hematocrit have dropped significantly. Patient educated on possible syncopal events if he rises from a seated position too fast. She instructed to stand and weight to determine if he is lightheaded before he takes his first step. Patient gives release of information to discussed this case with his sister. Will attempt to get collateral information regarding outpatient GI evaluation. Patient reports his mood as depressed. He denies crying spells. He continues to have appetite within normal limits. He denies history of polydipsia. He reports actually not drinking many fluids today. Patient encouraged to maintain normal 6 -8 cups of water per day fluid intake. Patient continues to report poor energy, feelings of hopelessness, helplessness, and worthlessness. He reports ongoing significant depression. Patient reports fair appetite and sleep. He denies SI/ HI and denies again today denies prescence of commanding AHs which told him to kill himself on admission. Patient is med compliant. He denies abd pain, chest pain nausea vomiting constipation and diarrhea. He does endorse increased back pain and new headache. He has been no behavioral problem on the unit. OBJECTIVE: VITAL SIGNS: See below. NEW TEST RESULTS: See below. CURRENT MEDICATIONS: See below. MENTAL STATUS EXAMINATION: Patient is a 35-year-old male, cachectic, disheveled, lying in bed staring toward the wall, too tired to return to visually engage this provider Speech: Slow rate, rhythm and prosody within normal limits, nonspontaneous Eye contact: poor Thought processes: Goal-directed Thought content: concerned with pending results of HEP A-E panels, HIV, and eval from Hospitalist. Description of abnormal or psychotic thoughts: Patient currently denies auditory hallucinations. He reported distressing auditory hallucinations that commanded him to kill himself prior to admission. Judgment: Fair Insight: Fair Orientation to time, place and person. Recent and remote memory: Intact. Immediate short-term and long-term memory is: intact. Attention span and concentration: fair. Mood: [Anxious Affect: Anxious DIAGNOSES: 1. MDD recurrent severe with psychotic features PLAN: 1. PENDING: HIV- neg, Hep B - neg, Hep C - neg. Remaining Hep - Pending. 2. Recommend follow-up had C serology as patient may not have seroconverted yet. 3. Discontinue Effexor as medication is known to be hepatotoxic. 4. Continue [place] 300 mg by mouth daily at bedtime for mood stabilization 5. Hospitalist rn prior authorization again consulted to further evaluate patient' s acute drop in H&H and ongoing increased LFTs. 6. Patient gives release of his information to discuss his case with his sister. TIME SPENT: 30 minutes. Vital Signs Vital Signs Date Time Temp Pulse Resp B/P Pulse Ox O2 Delivery O2 Flow Rate FiO2 05/16/16 19:10 113 21 109/64 Room Air 05/16/16 19:00 98.4 05/16/16 18:00 99 Laboratory Data 24H Labs Laboratory Tests 2 05/16/16 06:30: Blood Urea Nitrogen 15, Creatinine 0.73, Sodium Level 144, Potassium Level 4.0, Chloride Level 108H, Carbon Dioxide Level 30, Calcium Level 8.0L, Aspartate Amino Transf (AST/SGOT) 642H, Alanine Aminotransferase (ALT/SGPT) 1339H, Alkaline Phosphatase 169H, Total Bilirubin 0.3, Direct Bilirubin 0.1, Total Protein 5.9#L, Albumin 3.1#L, Albumin/Globulin Ratio 1.11, Anion Gap 6L, Glomerular Filtration Rate > 60.0 05/16/16 19:21: Blood Urea Nitrogen 12, Creatinine 0.71, Sodium Level 144, Potassium Level 4.0, Chloride Level 107, Carbon Dioxide Level 32, Calcium Level 8.3L, Aspartate Amino Transf (AST/SGOT) 461H, Alanine Aminotransferase (ALT/SGPT) 1147H, Alkaline Phosphatase 199H, Total Bilirubin 0.2, Total Protein 6.3L, Albumin 3.3 , Albumin/Globulin Ratio 1.10, Anion Gap 5L, Glomerular Filtration Rate > 60.0, Amylase Level 37, White Blood Count 7.3, Red Blood Count 3.35L, Hemoglobin 11.5L , Hematocrit 33.1L, Mean Corpuscular Volume 98.9H, Mean Corpuscular Hemoglobin 34.2H, Mean Corpuscular Hemoglobin Concent 34.6, Red Cell Distribution Width 13.3, Platelet Count 172, Neutrophils (%) (Auto) 71.9H, Lymphocytes (%) (Auto) 19.4L, Monocytes (%) (Auto) 5.6H, Eosinophils (%) (Auto) 1.0, Basophils (%) ( Auto) 0.6, Neutrophils # (Auto) 5.2, Lymphocytes # (Auto) 1.5, Monocytes # (Auto ) 0.4, Eosinophils # (Auto) 0.1, Basophils # (Auto) 0.0, Large Unclassified Cells # 0.1, Large Unclassified Cells % 1.4, Lipase 321 CBC/BMP Laboratory Tests 05/16/16 06:30 Calcium Level 8.0 L, Aspartate Amino Transf (AST/SGOT) 642 H, Alanine Aminotransferase (ALT/SGPT) 1339 H, Alkaline Phosphatase 169 H, Total Bilirubin 0.3, Direct Bilirubin 0.1, Total Protein 5.9 #L, Albumin 3.1 #L, Red Blood Count 3.13 L, Mean Corpuscular Volume 99.6 H, Mean Corpuscular Hemoglobin 34.4 H , Mean Corpuscular Hemoglobin Concent 34.5, Red Cell Distribution Width 12.5 05/16/16 19:21 Calcium Level 8.3 L, Aspartate Amino Transf (AST/SGOT) 461 H, Alanine Aminotransferase (ALT/SGPT) 1147 H, Alkaline Phosphatase 199 H, Total Bilirubin 0.2, Total Protein 6.3 L, Albumin 3.3, Red Blood Count 3.35 L, Mean Corpuscular Volume 98.9 H, Mean Corpuscular Hemoglobin 34.2 H, Mean Corpuscular Hemoglobin Concent 34.6, Red Cell Distribution Width 13.3, Neutrophils (%) (Auto) 71.9 H, Lymphocytes (%) (Auto) 19.4 L, Monocytes (%) (Auto) 5.6 H, Eosinophils (%) (Auto ) 1.0, Basophils (%) (Auto) 0.6, Neutrophils # (Auto) 5.2, Lymphocytes # (Auto) 1.5, Monocytes # (Auto) 0.4, Eosinophils # (Auto) 0.1, Basophils # (Auto) 0.0 Current Medications Current Medications Medications (Trade) Dose Ordered Sig/Nataliya Route PRN Reason Start Time Stop Time Status Last Admin Dose Admin Al Hydrox/Mg Hydrox/Simethicone (Mylanta) 30 ml Q4HP PRN PO HEARTBURN/INDIGESTION 05/13/16 20:30 06/12/16 20:29 05/13/16 21:30 Albuterol Sulfate (Proventil, Ventolin Hfa) 2 puff Q4HP PRN INH SHORTNESS OF BREATH 05/13/16 20:30 06/12/16 20:29 Carbamide Perox/ Anhydrous Glycerin (Debrox) 10 drop BID AU 05/16/16 09:00 05/19/16 21:01 05/16/16 22:59 Clotrimazole (Lotrimin) to rash on feet.and right hand BID TOP 05/16/16 09:00 06/15/16 08:59 05/16/16 23:01 Divalproex Sodium (Depakote Er) 750 mg QHS PO 05/13/16 21:00 05/15/16 15:01 DC 05/14/16 21:14 Docusate Sodium (Colace) 200 mg DAILY PO 05/14/16 09:00 06/13/16 08:59 05/16/16 09:25 Famotidine (Pepcid) 20 mg BID PO 05/16/16 09:00 06/15/16 08:59 05/16/16 22:57 Ferrous Sulfate (Ferrous Sulfate) 325 mg BID PO 05/13/16 21:00 06/12/16 20:59 05/16/16 22:57 Fexofenadine HCl (Enriqueta) 60 mg DAILY PO 05/14/16 09:00 06/13/16 08:59 05/16/16 09:25 Fluocinonide (Lidex 0.05%) 1 dose BID PRN TOP ITCHING 05/13/16 20:30 06/12/16 20:29 Fluticasone Propionate (Flonase 0.05% Nasal Allen) 2 spray DAILY NA 05/15/16 09:00 06/14/16 08:59 05/16/16 09:25 Halobetasol Propionate (Ultravate 0.05%) 1 dose BIDP PRN TOP DERMATITIS 05/13/16 20:30 06/12/16 20:29 Home Med (Med Rec Complete!) ASDIRECTED XX 05/13/16 17:45 05/13/16 17:45 DC Ibuprofen (Advil) 200 mg Q8HP PRN PO PAIN 05/15/16 16:30 05/15/16 23:02 DC 05/15/16 18:06 Ibuprofen (Advil) 400 mg Q6HP PRN PO PAIN 05/13/16 20:30 05/15/16 16:11 DC 05/14/16 21:14 Ibuprofen (Advil) 400 mg Q8H PO 05/15/16 22:00 06/14/16 21:59 05/16/16 23:02 [place] Carbonate ([place] Carbonate) 300 mg QHS PO 05/15/16 21:00 06/14/16 20:59 05/16/16 22:57 Magnesium Hydroxide (Milk Of Magnesia) 30 ml DAILYPRN PRN PO CONSTIPATION 05/13/16 20:30 05/15/16 15:19 DC Menthol/Methyl Salicylate (Bengay Cream) 1 dose BIDP PRN TOP PAIN 05/13/16 20:30 06/12/16 20:29 05/15/16 17:22 Nicotine (Nicoderm Cq 21mg) 1 patch DAILY TD 05/13/16 22:00 06/12/16 21:59 05/16/16 09:25 Nystatin (Mycostatin Powder, Nystop) 1 dose BID TOP 05/16/16 09:00 06/15/16 08:59 05/16/16 22:58 Polyethylene Glycol (Miralax) 1 pkt Q2D PO 05/14/16 09:00 06/13/16 08:59 05/16/16 09:24 Trazodone HCl (Desyrel) 50 mg QHSP PRN PO INSOMNIA 05/13/16 20:30 05/15/16 15:19 DC Venlafaxine HCl (Effexor) 75 mg DAILY PO 05/14/16 09:00 05/15/16 15:19 DC 05/15/16 09:56 Venlafaxine HCl (Effexor) 150 mg DAILY PO 05/16/16 09:00 05/16/16 21:27 DC 05/16/16 09:25 Allergies Coded Allergies: Amitriptyline (Verified Allergy, Mild, Rash, 11/26/14) Thioridazine (Verified Allergy, Mild, EPS, 8/12/15) Risperidone (Verified Adverse Reaction, Unknown, EPS, 05/13/16) MASSIEL ALEXANDRE MD May 17, 2016 06:27
[2016-05-17 06:42] VITALS: BP 104/60
[2016-05-17 07:07] LABS: MEAN CORPUSCULAR HEMOGLOBIN 33.7 pg (27.0-33.0); MEAN CORPUSCULAR HGB CONC 33.2 g/dl (32.0-36.5); MEAN CORPUSCULAR VOLUME 101.7 fl (80.0-96.0); RED CELL DISTRIBUTION WIDTH 13.6 % (11.5-14.5)
[2016-05-17 07:39] LABS: ALBUMIN 3.2 GM/DL (3.2-5.2); ALBUMIN/GLOBULIN RATIO 1.19 (1.00-1.93); ALKALINE PHOSPHATASE 187 U/L (45-117); ALT/SGPT 939 U/L (12-78); ANION GAP 5 MEQ/L (8-16); AST/SGOT 303 U/L (15-37); BILIRUBIN,TOTAL 0.2 MG/DL (0.2-1.0); BLOOD UREA NITROGEN 13 MG/DL (7-18); CARBON DIOXIDE LEVEL 31 MEQ/L (21-32); CHLORIDE LEVEL 109 MEQ/L (98-107); CREATININE FOR GFR 0.85 MG/DL (0.70-1.30); GLOMERULAR FILTRATION RATE > 60.0 (>60); GLUCOSE, FASTING 90 MG/DL (70-105); POTASSIUM SERUM 4.2 MEQ/L (3.5-5.1); SODIUM LEVEL 145 MEQ/L (136-145); TOTAL PROTEIN 5.9 GM/DL (6.4-8.2)
[2016-05-17 08:06] LABS: HBVCOREDIFF2 Negative (Negative)
--- NOTE | 2016-05-17 08:35 | IPNPDOC ---
Assessment/Plan Date Seen The patient was seen on 05/17/16. Problems Problems: (1) Elevated LFTs Status: Acute Problem Text: * RUQ U/S unremarkable. * Hepatitis testing reviewed, hepatitis A result noted. This is reviewed with Dr. Garcia. Add hepatitis A IgM. * Also add hepatitis C RNA. * Add monoscreen. * LFTs are trending downward. Recheck labs in a.m. * Request Gastroenterology records from [facility]. (2) Chronic bilateral low back pain Status: Chronic Problem Text: * pain mgmt CLT * XR LS Spine unremarkable. * Advil as needed * BenGay cream as needed. (3) Rash Status: Acute Problem Text: * Nystatin powder groin folds. Plan / VTE VTE Prophylaxis Ordered?: No (ambulatory) Subjective Review of Systems CC/HPI The patient is a 25-year-old male admitted with a reason for visit of Depressive Do Unspecified. Objective Physical Examination General Exam: Positive: Alert Eye Exam: Positive: PERRLA Chest Exam: Positive: Clear to auscultation, Normal air movement Heart Exam: Positive: Normal S1, Normal S2, Rate Normal, Regular Rhythm, Negative: Murmurs, Rubs Abdomen Exam: Positive: Normal bowel sounds, Soft, Negative: Hepatospenomegaly, Tenderness Skin Exam: Positive: Nl turgor and temperature, Other skin issue (erythematous rash groin folds. ) Neuro Exam: Positive: Normal Gait Vital Signs/I&O Vital Signs Date Time Temp Pulse Resp B/P Pulse Ox O2 Delivery O2 Flow Rate FiO2 05/17/16 06:42 97.8 107 19 104/60 05/16/16 19:10 Room Air 05/16/16 18:00 99 Laboratory Data Labs 24H Laboratory Tests 2 05/16/16 19:21: Blood Urea Nitrogen 12, Creatinine 0.71, Sodium Level 144, Potassium Level 4.0, Chloride Level 107, Carbon Dioxide Level 32, Calcium Level 8.3L, Aspartate Amino Transf (AST/SGOT) 461H, Alanine Aminotransferase (ALT/SGPT) 1147H, Alkaline Phosphatase 199H, Total Bilirubin 0.2, Total Protein 6.3L, Albumin 3.3 , Albumin/Globulin Ratio 1.10, Amylase Level 37, Anion Gap 5L, White Blood Count 7.3, Red Blood Count 3.35L, Hemoglobin 11.5L, Hematocrit 33.1L, Mean Corpuscular Volume 98.9H, Mean Corpuscular Hemoglobin 34.2H, Mean Corpuscular Hemoglobin Concent 34.6, Red Cell Distribution Width 13.3, Platelet Count 172, Neutrophils (%) (Auto) 71.9H, Lymphocytes (%) (Auto) 19.4L, Monocytes (%) (Auto ) 5.6H, Eosinophils (%) (Auto) 1.0, Basophils (%) (Auto) 0.6, Neutrophils # ( Auto) 5.2, Lymphocytes # (Auto) 1.5, Monocytes # (Auto) 0.4, Eosinophils # (Auto ) 0.1, Basophils # (Auto) 0.0, Glomerular Filtration Rate > 60.0, Large Unclassified Cells # 0.1, Large Unclassified Cells % 1.4, Lipase 321 05/17/16 06:42: Blood Urea Nitrogen 13, Creatinine 0.85, Sodium Level 145, Potassium Level 4.2, Chloride Level 109H, Carbon Dioxide Level 31, Calcium Level 8.0L, Aspartate Amino Transf (AST/SGOT) 303H, Alanine Aminotransferase (ALT/SGPT) 939H, Alkaline Phosphatase 187H, Total Bilirubin 0.2, Total Protein 5.9L, Albumin 3.2 , Albumin/Globulin Ratio 1.19, Anion Gap 5L, Glomerular Filtration Rate > 60.0, Lipase 302 CBC/BMP Laboratory Tests 05/16/16 19:21 Calcium Level 8.3 L, Aspartate Amino Transf (AST/SGOT) 461 H, Alanine Aminotransferase (ALT/SGPT) 1147 H, Alkaline Phosphatase 199 H, Total Bilirubin 0.2, Total Protein 6.3 L, Albumin 3.3, Red Blood Count 3.35 L, Mean Corpuscular Volume 98.9 H, Mean Corpuscular Hemoglobin 34.2 H, Mean Corpuscular Hemoglobin Concent 34.6, Red Cell Distribution Width 13.3, Neutrophils (%) (Auto) 71.9 H, Lymphocytes (%) (Auto) 19.4 L, Monocytes (%) (Auto) 5.6 H, Eosinophils (%) (Auto ) 1.0, Basophils (%) (Auto) 0.6, Neutrophils # (Auto) 5.2, Lymphocytes # (Auto) 1.5, Monocytes # (Auto) 0.4, Eosinophils # (Auto) 0.1, Basophils # (Auto) 0.0 05/17/16 06:42 Calcium Level 8.0 L, Aspartate Amino Transf (AST/SGOT) 303 H, Alanine Aminotransferase (ALT/SGPT) 939 H, Alkaline Phosphatase 187 H, Total Bilirubin 0.2, Total Protein 5.9 L, Albumin 3.2, Red Blood Count 3.15 L, Mean Corpuscular Volume 101.7 H, Mean Corpuscular Hemoglobin 33.7 H, Mean Corpuscular Hemoglobin Concent 33.2, Red Cell Distribution Width 13.6 Microbiology Microbiology 05/16/16 Stool Occult Blood (MATT), Received Pending Brandy Davis May 17, 2016 08:35
[2016-05-17] MEDS: DOCUSATE SODIUM 100 MG CAP PO SCH (08:49)
[2016-05-17] MEDS: CLOTRIMAZOLE 1% TOPICAL CREAM 30GM TOP SCH ×2 (08:49→21:56)
[2016-05-17] MEDS: FERROUS SULFATE 325MG TAB PO SCH ×2 (08:49→21:54)
[2016-05-17] MEDS: NICOTINE 21MG/24HR 1 EA TRANSDERMAL TD SCH (08:49)
[2016-05-17] MEDS: FAMOTIDINE 20 MG TAB PO SCH ×2 (08:49→21:55)
[2016-05-17] MEDS: FEXOFENADINE 60 MG TAB PO SCH (08:49)
[2016-05-17] MEDS: FLUTICASONE PROP 0.05% NASAL SPRAY 16 GM (FLONASE) SCH (08:50)
[2016-05-17] MEDS: CARBAMIDE PEROXIDE 6.5% OTIC SOLN 15ML AU SCH ×2 (08:50→21:55)
[2016-05-17] MEDS: NYSTATIN 100,000 UNITS/GM TOPICAL PWD 15 GM TOP SCH ×2 (09:00→21:55)
[2016-05-17 10:00] LABS: CONTROL LINE MONO INT CTR LINE PRESENT
--- NOTE | 2016-05-17 11:05 | EDDOCDS ---
Physician Documentation [facility] Name: Pillo Somers Age: 25 yrs Sex: Male : 1990 Arrival Date: 05/13/2016 Time: 14:05 Bed [facility] Private MD: Izzy Tinsley Disposition: 05/13/16 16:40 Hospitalization ordered by Franki Slater for Inpatient Admission. Preliminary diagnosis is Suicidal ideations. - Bed requested for Admit. - Status is Inpatient Admission. rs3 - Condition is Stable. - Problem is an ongoing problem. - Symptoms are unchanged. Historical: - Allergies: Amitriptyline; Haldol (dyskinesia); Loxapine Succinate; Risperdal (dyskinesia); - Home Meds: 1. ferrous sulfate 325 mg (65 mg iron) Oral cpER twice a day 2. Miralax 17 gram Oral pwpk 1 packet once daily 3. Doc-Q-Lace 100 mg oral cap 2 caps once daily 4. divalproex 250 mg oral TbEC 3 tabs hs 5. fexofenadine 60 mg Oral tab daily 6. quetiapine 200 mg oral Tb24 1 tab once daily 7. ranitidine HCl 150 mg Oral cap 2 times per day 8. escitalopram oxalate 20 mg oral tab 1 tab twice a day - PMHx: Celiac disease; Depression; GERD; bipolar; Constipation, Chronic; ADHD; Schizo-Affective Disorder; - PSHx: tubes in ears; Tonsillectomy; - Social history: Smoking status: Patient uses tobacco products, current every day smoker. No barriers to communication noted, The patient speaks fluent Fijian, Speaks appropriately for age. - Family history: Not pertinent. - : The pt / caregiver states he / she is not on anticoagulants. Home medication list is obtained from the patient. - Exposure Risk Screening:: None identified. Vital Signs: 05/13 14:08 BP 98 / 66; Pulse 78; Resp 18 S; Temp 98.0; Pulse Ox 100% on R/A; Weight 52.62 kg / dd6 116.01 lbs (M); Height 6 ft. 0 in. (182.88 cm) (M); 18:23 BP 97 / 65; Pulse 82; Resp 18; Temp 97.5; Pulse Ox 99% on R/A; Pain 0/10; tmm1 14:08 Body Mass Index 15.73 (52.62 kg, 182.88 cm) dd6 MDM: 14:18 Consult PFS/PSA/Machine Filler Shredder ordered. sd1 14:18 Consult PFS/PSA/Machine Filler Shredder: Patient's case requires discussion with on-call sd1 Psychiatrist ordered. 14:18 PSA/PFS to call Nursing Upset Welding Machine Operator, to enter patient data on [place] Safe Act if patient sd1 involuntarily admitted or transferred for SI or HI ordered. 14:18 Confirm accurate psychiatric medication list and times of last dosage ordered. sd1 14:18 Detain Pt Until Medically/PFS Cleared ordered. sd1 14:20 Acetaminophen Level Ordered. EDMS 14:20 Basic Metabolic Profile Ordered. EDMS 14:20 Complete Blood Count Ordered. EDMS 14:20 Drug Eval Toxicology ED Only Ordered. EDMS 14:20 Ethyl Alcohol (ethanol) Ordered. EDMS 14:20 Liver Profile Ordered. EDMS 14:20 Salicylate Level Ordered. EDMS 14:20 Thyroid Stimulating Hormone Ordered. EDMS 15:36 Financial registration complete. gjb 15:39 REPLACED BY [facility] Payment Agreement was scanned into [employer] and attached to record. gjb 16:04 REGULAR DIET ROOM SERVICE ED+DIET ordered. EDMS 16:38 Acetaminophen Level Reviewed. ke 16:38 Basic Metabolic Profile Reviewed. ke 16:38 Complete Blood Count Reviewed. ke 16:38 Liver Profile Reviewed. ke 16:38 Salicylate Level Reviewed. ke 16:38 Drug Eval Toxicology ED Only Reviewed. ke 16:38 Ethyl Alcohol (ethanol) Reviewed. ke 16:38 Thyroid Stimulating Hormone Reviewed. ke 16:40 BED REQUEST+ADM ordered. EDMS 17:00 Consult PFS/PSA/Machine Filler Shredder complete. rb 17:23 Admit to [facility]: ordered. EDMS 17:48 [facility] Legal paperwork was scanned into [employer] and attached to record. cs 17:57 [facility] Legal paperwork was scanned into [employer] and attached to record. cs 18:18 Consult PFS/PSA/Machine Filler Shredder: Patient's case requires discussion with on-call rb Psychiatrist complete. 18:18 PSA/PFS to call Nursing Upset Welding Machine Operator, to enter patient data [place] Safe [place] if patient rb involuntarily admitted or transferred for SI or HI complete. 05/14 08:45 T-Sheet-- Draft Copy was scanned into [employer] and attached to record. [facility] Signatures: Dispatcher [employer] Sabrina Rojas MD MD sd1 Chela Guerra RN RN hitesh Bonilla, Isabella, PSA PSA rb Clarke Luke, PSA PSA Shawn Naqvi, [employer] Allyson Hyatt RN RN rs3 Margie Alves Sarah [facility] The chart was reviewed and I authenticate all verbal orders and agree with the evaluation and treatment provided.Attachments: 05/13 15:39 [facility] Payment Agreement gjb 05/14 08:45 T-Sheet-- Draft Copy [facility] MTDD
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
--- NOTE | 2016-05-17 11:05 | EDDOCDS ---
Physician Documentation [facility] Name: Pillo Somers Age: 25 yrs Sex: Male : 1990 Arrival Date: 05/13/2016 Time: 14:05 Bed [facility] Private MD: Izzy Tinsley Disposition: 05/13/16 16:40 Hospitalization ordered by Franki Slater for Inpatient Admission. Preliminary diagnosis is Suicidal ideations. - Bed requested for Admit. - Status is Inpatient Admission. rs3 - Condition is Stable. - Problem is an ongoing problem. - Symptoms are unchanged. Historical: - Allergies: Amitriptyline; Haldol (dyskinesia); Loxapine Succinate; Risperdal (dyskinesia); - Home Meds: 1. ferrous sulfate 325 mg (65 mg iron) Oral cpER twice a day 2. Miralax 17 gram Oral pwpk 1 packet once daily 3. Doc-Q-Lace 100 mg oral cap 2 caps once daily 4. divalproex 250 mg oral TbEC 3 tabs hs 5. fexofenadine 60 mg Oral tab daily 6. quetiapine 200 mg oral Tb24 1 tab once daily 7. ranitidine HCl 150 mg Oral cap 2 times per day 8. escitalopram oxalate 20 mg oral tab 1 tab twice a day - PMHx: Celiac disease; Depression; GERD; bipolar; Constipation, Chronic; ADHD; Schizo-Affective Disorder; - PSHx: tubes in ears; Tonsillectomy; - Social history: Smoking status: Patient uses tobacco products, current every day smoker. No barriers to communication noted, The patient speaks fluent Trinidadian, Speaks appropriately for age. - Family history: Not pertinent. - : The pt / caregiver states he / she is not on anticoagulants. Home medication list is obtained from the patient. - Exposure Risk Screening:: None identified. Vital Signs: 05/13 14:08 BP 98 / 66; Pulse 78; Resp 18 S; Temp 98.0; Pulse Ox 100% on R/A; Weight 52.62 kg / dd6 116.01 lbs (M); Height 6 ft. 0 in. (182.88 cm) (M); 18:23 BP 97 / 65; Pulse 82; Resp 18; Temp 97.5; Pulse Ox 99% on R/A; Pain 0/10; tmm1 14:08 Body Mass Index 15.73 (52.62 kg, 182.88 cm) dd6 MDM: 14:18 Consult PFS/PSA/Turner Machine Operator ordered. sd1 14:18 Consult PFS/PSA/Turner Machine Operator: Patient's case requires discussion with on-call sd1 Psychiatrist ordered. 14:18 PSA/PFS to call Nursing Vaccine Key Customer Leader, to enter patient data on [place] Safe Act if patient sd1 involuntarily admitted or transferred for SI or HI ordered. 14:18 Confirm accurate psychiatric medication list and times of last dosage ordered. sd1 14:18 Detain Pt Until Medically/PFS Cleared ordered. sd1 14:20 Acetaminophen Level Ordered. EDMS 14:20 Basic Metabolic Profile Ordered. EDMS 14:20 Complete Blood Count Ordered. EDMS 14:20 Drug Eval Toxicology ED Only Ordered. EDMS 14:20 Ethyl Alcohol (ethanol) Ordered. EDMS 14:20 Liver Profile Ordered. EDMS 14:20 Salicylate Level Ordered. EDMS 14:20 Thyroid Stimulating Hormone Ordered. EDMS 15:36 Financial registration complete. gjb 15:39 COUNTS INCLUDE 234 BEDS AT THE [facility] Payment Agreement was scanned into [employer] and attached to record. gjb 16:04 REGULAR DIET ROOM SERVICE ED+DIET ordered. EDMS 16:38 Acetaminophen Level Reviewed. ke 16:38 Basic Metabolic Profile Reviewed. ke 16:38 Complete Blood Count Reviewed. ke 16:38 Liver Profile Reviewed. ke 16:38 Salicylate Level Reviewed. ke 16:38 Drug Eval Toxicology ED Only Reviewed. ke 16:38 Ethyl Alcohol (ethanol) Reviewed. ke 16:38 Thyroid Stimulating Hormone Reviewed. ke 16:40 BED REQUEST+ADM ordered. EDMS 17:00 Consult PFS/PSA/Turner Machine Operator complete. rb 17:23 Admit to [facility]: ordered. EDMS 17:48 [facility] Legal paperwork was scanned into [employer] and attached to record. cs 17:57 [facility] Legal paperwork was scanned into [employer] and attached to record. cs 18:18 Consult PFS/PSA/Turner Machine Operator: Patient's case requires discussion with on-call rb Psychiatrist complete. 18:18 PSA/PFS to call Nursing Vaccine Key Customer Leader, to enter patient data on [place] Safe [place] if patient rb involuntarily admitted or transferred for SI or HI complete. 05/14 08:45 T-Sheet-- Draft Copy was scanned into [employer] and attached to record. cox monett Signatures: Dispatcher [employer] Sabrina Rojas MD MD sd1 Chela Guerra RN RN hitesh Bonilla, Isabella, PSA PSA rb Clarke Luke, PSA PSA Shawn Naqvi, B2B SALES CONSULTANT B2B SALES CONSULTANT Allyson Hyatt RN RN rs3 Margie Alves Sarah cox monett The chart was reviewed and I authenticate all verbal orders and agree with the evaluation and treatment provided.Attachments: 05/13 15:39 [facility] [place] [place] Payment Agreement gjb 05/14 08:45 T-Sheet-- Draft Copy cox monett MTDD
--- NOTE | 2016-05-17 11:06 | EDDOCDS ---
Physician Documentation [facility] Name: Pillo Somers Age: 25 yrs Sex: Male : 1990 Arrival Date: 05/13/2016 Time: 14:05 Bed [facility] Private MD: Izzy Tinsley Disposition: 05/13/16 16:40 Hospitalization ordered by Franki Slater for Inpatient Admission. Preliminary diagnosis is Suicidal ideations. - Bed requested for Admit. - Status is Inpatient Admission. rs3 - Condition is Stable. - Problem is an ongoing problem. - Symptoms are unchanged. Historical: - Allergies: Amitriptyline; Haldol (dyskinesia); Loxapine Succinate; Risperdal (dyskinesia); - Home Meds: 1. ferrous sulfate 325 mg (65 mg iron) Oral cpER twice a day 2. Miralax 17 gram Oral pwpk 1 packet once daily 3. Doc-Q-Lace 100 mg oral cap 2 caps once daily 4. divalproex 250 mg oral TbEC 3 tabs hs 5. fexofenadine 60 mg Oral tab daily 6. quetiapine 200 mg oral Tb24 1 tab once daily 7. ranitidine HCl 150 mg Oral cap 2 times per day 8. escitalopram oxalate 20 mg oral tab 1 tab twice a day - PMHx: Celiac disease; Depression; GERD; bipolar; Constipation, Chronic; ADHD; Schizo-Affective Disorder; - PSHx: tubes in ears; Tonsillectomy; - Social history: Smoking status: Patient uses tobacco products, current every day smoker. No barriers to communication noted, The patient speaks fluent Australian, Speaks appropriately for age. - Family history: Not pertinent. - : The pt / caregiver states he / she is not on anticoagulants. Home medication list is obtained from the patient. - Exposure Risk Screening:: None identified. Vital Signs: 05/13 14:08 BP 98 / 66; Pulse 78; Resp 18 S; Temp 98.0; Pulse Ox 100% on R/A; Weight 52.62 kg / dd6 116.01 lbs (M); Height 6 ft. 0 in. (182.88 cm) (M); 18:23 BP 97 / 65; Pulse 82; Resp 18; Temp 97.5; Pulse Ox 99% on R/A; Pain 0/10; tmm1 14:08 Body Mass Index 15.73 (52.62 kg, 182.88 cm) dd6 MDM: 14:18 Consult PFS/PSA/Gauge Machine Operator ordered. sd1 14:18 Consult PFS/PSA/Gauge Machine Operator: Patient's case requires discussion with on-call sd1 Psychiatrist ordered. 14:18 PSA/PFS to call Nursing Manager Home, to enter patient data on [place] Safe Act if patient sd1 involuntarily admitted or transferred for SI or HI ordered. 14:18 Confirm accurate psychiatric medication list and times of last dosage ordered. sd1 14:18 Detain Pt Until Medically/PFS Cleared ordered. sd1 14:20 Acetaminophen Level Ordered. EDMS 14:20 Basic Metabolic Profile Ordered. EDMS 14:20 Complete Blood Count Ordered. EDMS 14:20 Drug Eval Toxicology ED Only Ordered. EDMS 14:20 Ethyl Alcohol (ethanol) Ordered. EDMS 14:20 Liver Profile Ordered. EDMS 14:20 Salicylate Level Ordered. EDMS 14:20 Thyroid Stimulating Hormone Ordered. EDMS 15:36 Financial registration complete. gjb 15:39 [facility] Payment Agreement was scanned into [employer] and attached to record. gjb 16:04 REGULAR DIET ROOM SERVICE ED+DIET ordered. EDMS 16:38 Acetaminophen Level Reviewed. ke 16:38 Basic Metabolic Profile Reviewed. ke 16:38 Complete Blood Count Reviewed. ke 16:38 Liver Profile Reviewed. ke 16:38 Salicylate Level Reviewed. ke 16:38 Drug Eval Toxicology ED Only Reviewed. ke 16:38 Ethyl Alcohol (ethanol) Reviewed. ke 16:38 Thyroid Stimulating Hormone Reviewed. ke 16:40 BED REQUEST+ADM ordered. EDMS 17:00 Consult PFS/PSA/Gauge Machine Operator complete. rb 17:23 Admit to [facility]: ordered. EDMS 17:48 [facility] Legal paperwork was scanned into [employer] and attached to record. cs 17:57 [facility] Legal paperwork was scanned into [employer] and attached to record. cs 18:18 Consult PFS/PSA/Gauge Machine Operator: Patient's case requires discussion with on-call rb Psychiatrist complete. 18:18 PSA/PFS to call Nursing Manager Home, to enter patient data on [place] Safe [place] if patient rb involuntarily admitted or transferred for SI or HI complete. 05/14 08:45 T-Sheet-- Draft Copy was scanned into [employer] and attached to record. [facility] Signatures: Dispatcher [employer] Sabrina Rojas MD MD sd1 Chela Guerra RN RN hitesh Bonilla, Isabella, PSA PSA rb Clarke Luke, PSA PSA Shawn Naqvi, CREDIT CARD ASSOCIATE CREDIT CARD ASSOCIATE Allyson Hyatt RN RN rs3 Margie Alves Sarah [facility] The chart was reviewed and I authenticate all verbal orders and agree with the evaluation and treatment provided.Attachments: 05/13 15:39 [facility] [place] gjb 05/14 08:45 T-Sheet-- Draft Copy [facility] Chart Complete MTDD
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
--- NOTE | 2016-05-17 11:06 | EDDOCDS ---
Physician Documentation [facility] Name: Pillo Somers Age: 25 yrs Sex: Male : 1990 Arrival Date: 05/13/2016 Time: 14:05 Bed [facility] Private MD: Izzy Tinsley Disposition: 05/13/16 16:40 Hospitalization ordered by Franki Slater for Inpatient Admission. Preliminary diagnosis is Suicidal ideations. - Bed requested for Admit. - Status is Inpatient Admission. rs3 - Condition is Stable. - Problem is an ongoing problem. - Symptoms are unchanged. Historical: - Allergies: Amitriptyline; Haldol (dyskinesia); Loxapine Succinate; Risperdal (dyskinesia); - Home Meds: 1. ferrous sulfate 325 mg (65 mg iron) Oral cpER twice a day 2. Miralax 17 gram Oral pwpk 1 packet once daily 3. Doc-Q-Lace 100 mg oral cap 2 caps once daily 4. divalproex 250 mg oral TbEC 3 tabs hs 5. fexofenadine 60 mg Oral tab daily 6. quetiapine 200 mg oral Tb24 1 tab once daily 7. ranitidine HCl 150 mg Oral cap 2 times per day 8. escitalopram oxalate 20 mg oral tab 1 tab twice a day - PMHx: Celiac disease; Depression; GERD; bipolar; Constipation, Chronic; ADHD; Schizo-Affective Disorder; - PSHx: tubes in ears; Tonsillectomy; - Social history: Smoking status: Patient uses tobacco products, current every day smoker. No barriers to communication noted, The patient speaks fluent Tongan, Speaks appropriately for age. - Family history: Not pertinent. - : The pt / caregiver states he / she is not on anticoagulants. Home medication list is obtained from the patient. - Exposure Risk Screening:: None identified. Vital Signs: 05/13 14:08 BP 98 / 66; Pulse 78; Resp 18 S; Temp 98.0; Pulse Ox 100% on R/A; Weight 52.62 kg / dd6 116.01 lbs (M); Height 6 ft. 0 in. (182.88 cm) (M); 18:23 BP 97 / 65; Pulse 82; Resp 18; Temp 97.5; Pulse Ox 99% on R/A; Pain 0/10; tmm1 14:08 Body Mass Index 15.73 (52.62 kg, 182.88 cm) dd6 MDM: 14:18 Consult PFS/PSA/Boat Outboard Engine Mechanic ordered. sd1 14:18 Consult PFS/PSA/Boat Outboard Engine Mechanic: Patient's case requires discussion with on-call sd1 Psychiatrist ordered. 14:18 PSA/PFS to call Nursing Lab Head, to enter patient data on [place] Safe Act if patient sd1 involuntarily admitted or transferred for SI or HI ordered. 14:18 Confirm accurate psychiatric medication list and times of last dosage ordered. sd1 14:18 Detain Pt Until Medically/PFS Cleared ordered. sd1 14:20 Acetaminophen Level Ordered. EDMS 14:20 Basic Metabolic Profile Ordered. EDMS 14:20 Complete Blood Count Ordered. EDMS 14:20 Drug Eval Toxicology ED Only Ordered. EDMS 14:20 Ethyl Alcohol (ethanol) Ordered. EDMS 14:20 Liver Profile Ordered. EDMS 14:20 Salicylate Level Ordered. EDMS 14:20 Thyroid Stimulating Hormone Ordered. EDMS 15:36 Financial registration complete. gjb 15:39 [facility] Payment Agreement was scanned into [employer] and attached to record. gjb 16:04 REGULAR DIET ROOM SERVICE ED+DIET ordered. EDMS 16:38 Acetaminophen Level Reviewed. ke 16:38 Basic Metabolic Profile Reviewed. ke 16:38 Complete Blood Count Reviewed. ke 16:38 Liver Profile Reviewed. ke 16:38 Salicylate Level Reviewed. ke 16:38 Drug Eval Toxicology ED Only Reviewed. ke 16:38 Ethyl Alcohol (ethanol) Reviewed. ke 16:38 Thyroid Stimulating Hormone Reviewed. ke 16:40 BED REQUEST+ADM ordered. EDMS 17:00 Consult PFS/PSA/Boat Outboard Engine Mechanic complete. rb 17:23 Admit to [facility]: ordered. EDMS 17:48 [facility] Legal paperwork was scanned into [employer] and attached to record. cs 17:57 [facility] Legal paperwork was scanned into [employer] and attached to record. cs 18:18 Consult PFS/PSA/Boat Outboard Engine Mechanic: Patient's case requires discussion with on-call rb Psychiatrist complete. 18:18 PSA/PFS to call Nursing Lab Head, to enter patient data [place] Safe [place] if patient rb involuntarily admitted or transferred for SI or HI complete. 05/14 08:45 T-Sheet-- Draft Copy was scanned into [employer] and attached to record. [facility] Signatures: Dispatcher [employer] Sabrnia Rojas MD MD sd1 Chela Guerra RN RN hitesh Bonilla, Isabella, PSA PSA rb Clarke Luke, PSA PSA Shawn Naqvi, PATTERNMAKER HAND PATTERNMAKER HAND Allyson Hyatt RN RN rs3 Margie Alves Sarah [facility] The chart was reviewed and I authenticate all verbal orders and agree with the evaluation and treatment provided.Attachments: 05/13 15:39 [facility] [place] Agreement gjb 05/14 08:45 T-Sheet-- Draft Copy [facility] Chart Complete MTDD
[2016-05-17 18:00] VITALS: BP 101/53
[2016-05-17] MEDS ORDERED: hydrOXYzine 25 MG TAB PO PRN (19:45)
--- NOTE | 2016-05-17 19:48 | IPNPDOC ---
[facility] Progress Note Progress Note DATE OF SERVICE: 05/17/16 HISTORY: Patient was seen today to evaluate treatment progress on inpatient unit. Patient remains anxious regarding pending lab results, however, is able to engage appropriately and this afternoon is up out of bed attending to personal hygiene needs. Patient reports moderate symptoms of anxiety and depression, denies suicidal and homicidal ideation, denies current audiovisual hallucinations, denies urge to engage in self-injurious behavior. Patient further denies symptoms of mood lability and anger. Indicates "sometimes at night," he hears voices which sometimes tell him he is not good enough or tell him to kill himself, adds voices do not specify means or plan, and patient adds he does not entertain plans to harm self. Patient is able to agree to notify staff if symptoms of anxiety, depression, audio hallucinations, reemerge and/or become unmanageable. Patient is aware HIV is negative as well as hep B and hep C , also remains aware that his hemoglobin and hematocrit have dropped significantly, PA is monitoring. Patient is able to verbalize how to avoid syncopal events and what symptoms to monitor for. Patient is also aware he will require outpatient GI evaluation. Patient indicates appetite remains normal, he reports reduced energy level, has been encouraged to maintain his fluid intake, notes sleep is poor, and eyes nightmares, and makes request for sleep aid. Patient reports 5/10 pain to legs. Of note: According to ED admission note, patient wrote a suicide note in which she indicated plan to cut wrist prior to hospitalization. VITAL SIGNS: See below. NEW TEST RESULTS: PA is currently evaluating patient's hepatitis status. CURRENT MEDICATIONS: See below. MENTAL STATUS EXAMINATION: Patient is a 35-year-old male, with improved hygiene today, was in bed this morning but is up out of bed this afternoon and tending to personal hygiene needs. Patient is engageable, calm and cooperative, makes good eye contact, appears stated age. Speech: Regular rate, rhythm, volume, coherent Eye contact: Adequate Thought processes: Linear, Goal-directed Thought content: Concerned with testing results, within normal limits, denies suicidal and homicidal ideation, denies urge to engage in self-injurious behavior Description of abnormal or psychotic thoughts: Patient currently denies auditory hallucinations. He reported distressing auditory hallucinations that commanded him to kill himself prior to admission, indicates he sometimes experiences at night. Judgment: Poor Insight: Poor Orientation to time, place and person. Recent and remote memory: Intact. Immediate short-term and long-term memory is: intact. Attention span and concentration: fair. Mood: "A little better I guess." Patient appears mildly anxious and depressed Affect: Constricted, congruent with mood DIAGNOSES: MDD recurrent severe with psychotic features ASSESSMENT: Patient has been isolative to room, but is this afternoon up out of bed attending to personal hygiene needs, is engageable, and is socializing with roommate. Patient reports ongoing symptoms of anxiety and depression, denies suicidal and homicidal ideation, denies current audiovisual hallucinations, indicates he has a history of experiencing audio hallucinations at night telling him he is "no good" and that he should kill himself. Patient is able to agree to alert staff symptoms reemerge and/or become unmanageable. Patient makes inquiry regarding blood work results, was informed that PA is monitoring and will follow up with him one results are known. Patient expresses concerns regarding his physical health, makes request for gluten-free diet, notes he has been losing weight and has been experiencing a decrease in energy level. Patient indicates today he is been sleeping proximately 3 hours per night, makes requests for sleep aid, informs song writer he cannot take Remeron due to history of bedwetting while taking medication, notes trazodone was ineffective, and Seroquel, Lexapro, and Depakote have been discontinued due to hepatotoxicity risks. Patient has been started by weekend provider on lithium, denies medication side effects. Will initiate sleep aid and we'll continue to monitor patient's response to lithium and monitor for medication side effects. Patient indicates he is undecided as to his discharge plan at this time, voices to song writer "I'm hoping to be able to stay until next week to get everything good with my health." MANAGEMENT PLAN: Initiate med trial hydroxyzine 25 mg po hs PRN insomnia, continue [place] 300 mg po hs PENDING: HIV- neg, Hep B - neg, Hep C - neg. Remaining Hep - Pending. Recommend follow-up had C serology as patient may not have seroconverted yet. Maintain discontinued Effexor as medication is known to be hepatotoxic. Continue [place] 300 mg by mouth daily at bedtime for mood stabilization PA is evaluating patient's acute drop in H&H and ongoing increased LFTs. Maintain safety precautions Patient to attend groups and participate in unit programming to develop coping strategies Engage patient in discharge planning process and arrange meeting with command to evaluate safe discharge planning when appropriate Patient to follow up with [facility] upon discharge TIME SPENT: 40 minutes. Vital Signs Vital Signs Date Time Temp Pulse Resp B/P Pulse Ox O2 Delivery O2 Flow Rate FiO2 05/17/16 06:42 97.8 107 19 104/60 05/16/16 19:10 Room Air 05/16/16 18:00 99 Laboratory Data 24H Labs Laboratory Tests 2 05/16/16 19:21: Blood Urea Nitrogen 12, Creatinine 0.71, Sodium Level 144, Potassium Level 4.0, Chloride Level 107, Carbon Dioxide Level 32, Calcium Level 8.3L, Aspartate Amino Transf (AST/SGOT) 461H, Alanine Aminotransferase (ALT/SGPT) 1147H, Alkaline Phosphatase 199H, Total Bilirubin 0.2, Total Protein 6.3L, Albumin 3.3 , Albumin/Globulin Ratio 1.10, Amylase Level 37, Anion Gap 5L, White Blood Count 7.3, Red Blood Count 3.35L, Hemoglobin 11.5L, Hematocrit 33.1L, Mean Corpuscular Volume 98.9H, Mean Corpuscular Hemoglobin 34.2H, Mean Corpuscular Hemoglobin Concent 34.6, Red Cell Distribution Width 13.3, Platelet Count 172, Neutrophils (%) (Auto) 71.9H, Lymphocytes (%) (Auto) 19.4L, Monocytes (%) (Auto ) 5.6H, Eosinophils (%) (Auto) 1.0, Basophils (%) (Auto) 0.6, Neutrophils # ( Auto) 5.2, Lymphocytes # (Auto) 1.5, Monocytes # (Auto) 0.4, Eosinophils # (Auto ) 0.1, Basophils # (Auto) 0.0, Glomerular Filtration Rate > 60.0, Large Unclassified Cells # 0.1, Large Unclassified Cells % 1.4, Lipase 321 05/17/16 06:42: Blood Urea Nitrogen 13, Creatinine 0.85, Sodium Level 145, Potassium Level 4.2, Chloride Level 109H, Carbon Dioxide Level 31, Calcium Level 8.0L, Aspartate Amino Transf (AST/SGOT) 303H, Alanine Aminotransferase (ALT/SGPT) 939H, Alkaline Phosphatase 187H, Total Bilirubin 0.2, Total Protein 5.9L, Albumin 3.2 , Albumin/Globulin Ratio 1.19, Anion Gap 5L, Glomerular Filtration Rate > 60.0, Lipase 302 05/17/16 08:41: 05/17/16 08:42: Monoscreen NEGATIVE CBC/BMP Laboratory Tests 05/16/16 19:21 Calcium Level 8.3 L, Aspartate Amino Transf (AST/SGOT) 461 H, Alanine Aminotransferase (ALT/SGPT) 1147 H, Alkaline Phosphatase 199 H, Total Bilirubin 0.2, Total Protein 6.3 L, Albumin 3.3, Red Blood Count 3.35 L, Mean Corpuscular Volume 98.9 H, Mean Corpuscular Hemoglobin 34.2 H, Mean Corpuscular Hemoglobin Concent 34.6, Red Cell Distribution Width 13.3, Neutrophils (%) (Auto) 71.9 H, Lymphocytes (%) (Auto) 19.4 L, Monocytes (%) (Auto) 5.6 H, Eosinophils (%) (Auto ) 1.0, Basophils (%) (Auto) 0.6, Neutrophils # (Auto) 5.2, Lymphocytes # (Auto) 1.5, Monocytes # (Auto) 0.4, Eosinophils # (Auto) 0.1, Basophils # (Auto) 0.0 05/17/16 06:42 Calcium Level 8.0 L, Aspartate Amino Transf (AST/SGOT) 303 H, Alanine Aminotransferase (ALT/SGPT) 939 H, Alkaline Phosphatase 187 H, Total Bilirubin 0.2, Total Protein 5.9 L, Albumin 3.2, Red Blood Count 3.15 L, Mean Corpuscular Volume 101.7 H, Mean Corpuscular Hemoglobin 33.7 H, Mean Corpuscular Hemoglobin Concent 33.2, Red Cell Distribution Width 13.6 Current Medications Current Medications Medications (Trade) Dose Ordered Sig/Nataliya Route PRN Reason Start Time Stop Time Status Last Admin Dose Admin Al Hydrox/Mg Hydrox/Simethicone (Mylanta) 30 ml Q4HP PRN PO HEARTBURN/INDIGESTION 05/13/16 20:30 06/12/16 20:29 05/13/16 21:30 Albuterol Sulfate (Proventil, Ventolin Hfa) 2 puff Q4HP PRN INH SHORTNESS OF BREATH 05/13/16 20:30 06/12/16 20:29 Carbamide Perox/ Anhydrous Glycerin (Debrox) 10 drop BID AU 05/16/16 09:00 05/19/16 21:01 05/17/16 08:50 Clotrimazole (Lotrimin) to rash on feet.and right hand BID TOP 05/16/16 09:00 06/15/16 08:59 05/17/16 08:49 Divalproex Sodium (Depakote Er) 750 mg QHS PO 05/13/16 21:00 05/15/16 15:01 DC 05/14/16 21:14 Docusate Sodium (Colace) 200 mg DAILY PO 05/14/16 09:00 06/13/16 08:59 05/17/16 08:49 Famotidine (Pepcid) 20 mg BID PO 05/16/16 09:00 06/15/16 08:59 05/17/16 08:49 Ferrous Sulfate (Ferrous Sulfate) 325 mg BID PO 05/13/16 21:00 06/12/16 20:59 05/17/16 08:49 Fexofenadine HCl (Enriqueta) 60 mg DAILY PO 05/14/16 09:00 06/13/16 08:59 05/17/16 08:49 Fluocinonide (Lidex 0.05%) 1 dose BID PRN TOP ITCHING 05/13/16 20:30 06/12/16 20:29 Fluticasone Propionate (Flonase 0.05% Nasal Rowe) 2 spray DAILY NA 05/15/16 09:00 06/14/16 08:59 05/17/16 08:50 Halobetasol Propionate (Ultravate 0.05%) 1 dose BIDP PRN TOP DERMATITIS 05/13/16 20:30 06/12/16 20:29 Home Med (Med Rec Complete!) ASDIRECTED XX 05/13/16 17:45 05/13/16 17:45 DC Ibuprofen (Advil) 200 mg Q8HP PRN PO PAIN 05/15/16 16:30 05/15/16 23:02 DC 05/15/16 18:06 Ibuprofen (Advil) 400 mg Q6HP PRN PO PAIN 05/13/16 20:30 05/15/16 16:11 DC 05/14/16 21:14 Ibuprofen (Advil) 400 mg Q8H PO 05/15/16 22:00 06/14/16 21:59 05/16/16 23:02 [place] Carbonate ([place] Carbonate) 300 mg QHS PO 05/15/16 21:00 06/14/16 20:59 05/16/16 22:57 Magnesium Hydroxide (Milk Of Magnesia) 30 ml DAILYPRN PRN PO CONSTIPATION 05/13/16 20:30 05/15/16 15:19 DC Menthol/Methyl Salicylate (Bengay Cream) 1 dose BIDP PRN TOP PAIN 05/13/16 20:30 06/12/16 20:29 05/15/16 17:22 Nicotine (Nicoderm Cq 21mg) 1 patch DAILY TD 05/13/16 22:00 06/12/16 21:59 05/17/16 08:49 Nystatin (Mycostatin Powder, Nystop) 1 dose BID TOP 05/16/16 09:00 06/15/16 08:59 05/16/16 22:58 Polyethylene Glycol (Miralax) 1 pkt Q2D PO 05/14/16 09:00 06/13/16 08:59 05/16/16 09:24 Trazodone HCl (Desyrel) 50 mg QHSP PRN PO INSOMNIA 05/13/16 20:30 05/15/16 15:19 DC Venlafaxine HCl (Effexor) 75 mg DAILY PO 05/14/16 09:00 05/15/16 15:19 DC 05/15/16 09:56 Venlafaxine HCl (Effexor) 150 mg DAILY PO 05/16/16 09:00 05/16/16 21:27 DC 05/16/16 09:25 Allergies Coded Allergies: Amitriptyline (Verified Allergy, Mild, Rash, 11/26/14) Thioridazine (Verified Allergy, Mild, EPS, 11/26/14) Risperidone (Verified Adverse Reaction, Unknown, EPS, 05/13/16) Indu Flores May 17, 2016 19:48
[2016-05-17] MEDS: LITHIUM CARBONATE 300 MG CAP PO SCH (21:54)
[2016-05-17] MEDS: ANALGESIC BALM CRM 120 GM TOP PRN (21:56)
[2016-05-18] MEDS: IBUPROFEN 400 MG TAB PO SCH ×3 (06:30→21:51)
[2016-05-18 06:36] VITALS: BP 108/62
[2016-05-18 07:09] LABS: MEAN CORPUSCULAR HEMOGLOBIN 34.4 pg (27.0-33.0); MEAN CORPUSCULAR HGB CONC 33.7 g/dl (32.0-36.5); MEAN CORPUSCULAR VOLUME 102.1 fl (80.0-96.0); RED CELL DISTRIBUTION WIDTH 13.2 % (11.5-14.5); WHITE BLOOD COUNT 8.7 K/mm3 (4.0-10.0)
[2016-05-18 07:44] LABS: ALBUMIN 3.3 GM/DL (3.2-5.2); ALBUMIN/GLOBULIN RATIO 1.18 (1.00-1.93); ALKALINE PHOSPHATASE 187 U/L (45-117); ALT/SGPT 727 U/L (12-78); ANION GAP 4 MEQ/L (8-16); AST/SGOT 162 U/L (15-37); BILIRUBIN,TOTAL 0.2 MG/DL (0.2-1.0); BLOOD UREA NITROGEN 15 MG/DL (7-18); CALCIUM LEVEL 8.4 MG/DL (8.5-10.1); CARBON DIOXIDE LEVEL 32 MEQ/L (21-32); CHLORIDE LEVEL 108 MEQ/L (98-107); CREATININE FOR GFR 0.65 MG/DL (0.70-1.30); GLOMERULAR FILTRATION RATE > 60.0 (>60); GLUCOSE, FASTING 77 MG/DL (70-105); SODIUM LEVEL 144 MEQ/L (136-145); TOTAL PROTEIN 6.1 GM/DL (6.4-8.2)
[2016-05-18] MEDS: NYSTATIN 100,000 UNITS/GM TOPICAL PWD 15 GM TOP SCH ×2 (09:00→21:00)
[2016-05-18] MEDS: MIRALAX *UNIT DOSE* 17GM PACKET PO SCH (09:00)
[2016-05-18] MEDS: CLOTRIMAZOLE 1% TOPICAL CREAM 30GM TOP SCH ×2 (09:00→21:00)
[2016-05-18] MEDS: FLUTICASONE PROP 0.05% NASAL SPRAY 16 GM (FLONASE) SCH (09:18)
[2016-05-18] MEDS: CARBAMIDE PEROXIDE 6.5% OTIC SOLN 15ML AU SCH ×2 (09:18→21:00)
[2016-05-18] MEDS: FERROUS SULFATE 325MG TAB PO SCH ×2 (09:18→21:51)
[2016-05-18] MEDS: FAMOTIDINE 20 MG TAB PO SCH ×2 (09:18→21:51)
[2016-05-18] MEDS: DOCUSATE SODIUM 100 MG CAP PO SCH (09:18)
[2016-05-18] MEDS: NICOTINE 21MG/24HR 1 EA TRANSDERMAL TD SCH (09:19)
[2016-05-18] MEDS: FEXOFENADINE 60 MG TAB PO SCH (09:19)
[2016-05-18 18:00] VITALS: BP 116/86
[2016-05-18] MEDS ORDERED: zolPIDEM TARTRATE 5 MG TAB PO PRN (18:15)
--- NOTE | 2016-05-18 18:21 | IPNPDOC ---
[facility] Progress Note Progress Note DATE OF SERVICE: 05/18/16 HISTORY: Patient was seen today to evaluate treatment progress on inpatient unit. Patient remains anxious regarding pending lab results and US. Patient is observed to be up and out of bed during day, indicates he is attending groups, engaging selectively with peers. Patient reports anxiety /10, depression /, denies suicidal and homicidal thinking, denies audiovisual hallucinations, denies urge to engage in self-injurious behavior. Patient indicates he continues to experience intermittent audio hallucinations "at night as when I hear them; in the past they have been fixed by good sleep." Patient denies command element to audio hallucinations. Patient indicates he took hydroxyzine last night for sleep and states medication was ineffective, informs jingle writer today he has taken medication at higher dose with poor effect. Patient states lithium is helpful in stabilizing mood and reducing impulsivity and patient indicates he feels less depressed since starting medication. Patient remains agreeable to notify staff if symptoms of anxiety, depression, audio hallucinations, reemerge and/or become unmanageable. Patient is able to verbalize how to avoid syncopal events and what symptoms to monitor for. Patient is also aware he will require outpatient GI evaluation. Patient indicates appetite remains normal, he reports reduced energy level, has been encouraged to maintain his fluid intake, notes sleep remains poor, denies nightmares, and makes new request for sleep aid. Patient reports ongoing moderate pain to legs and back. Of note: Discovered in one of his testing results entries, patient apparently has a reported history of eating cat food. Also of note: According to ED admission note, patient wrote a suicide note in which he indicated plan to cut wrist prior to hospitalization. VITAL SIGNS: See below. NEW TEST RESULTS: JOCE is currently evaluating patient's US, lab results and hepatitis testing status. At time of admission patient reported Celiac disease ( not confirmed by testing), GERD, history of constipation. CURRENT MEDICATIONS: See below. MENTAL STATUS EXAMINATION: Patient is a 35-year-old male, with improved hygiene today, was in bed this morning but is up out of bed this afternoon and tending to personal hygiene needs. Patient is engageable, calm and cooperative, makes good eye contact, appears stated age. Speech: Regular rate, rhythm, volume, coherent Eye contact: Adequate Thought processes: Linear, Goal-directed Thought content: Remains concerned with testing results, otherwise within normal limits, denies suicidal and homicidal ideation, denies urge to engage in self-injurious behavior Description of abnormal or psychotic thoughts: Patient currently denies auditory hallucinations. He reported distressing auditory hallucinations that commanded him to kill himself prior to admission, indicates he sometimes experiences at night, denies command element to current symptoms and denies experiencing plan or intent to harm self or others Judgment: Poor Insight: Poor Orientation to time, place and person. Recent and remote memory: Intact. Immediate short-term and long-term memory is: intact. Attention span and concentration: fair. Mood: "A little better." Patient appears mildly anxious and depressed Affect: Constricted, congruent with mood DIAGNOSES: Unspecified mood disorder, rule out bipolar disorder, rule out MDD recurrent severe with psychotic features, ADHD reported history ASSESSMENT: Patient has been visible on unit and participating in groups, is engageable, socializes with roommate. Patient reports ongoing symptoms of anxiety and depression, denies suicidal and homicidal ideation, denies current audiovisual hallucinations, indicates he has a history of experiencing audio hallucinations at night telling him he is "no good" and that he should kill himself. Patient is able to agree to alert staff symptoms reemerge and/or become unmanageable. Patient makes inquiry regarding blood work results, was informed that PA is monitoring and will follow up with him one results are known. Patient expresses concerns regarding his physical health. Patient states he took hydroxyzine for sleep last night with no effect, and is today making new request for sleep aid. Patient reports history of recreational alcohol consumption and marijuana use, denies all substance use since 2012 and, due to patient's physical health status and history of trialing other medications, jingle writer discussed short-term use of Ambien to address sleep challenges. Patient was educated on potential risks, benefits, side effects and possibility for dependence with Ambien and was informed that prescription would be for shortest duration needed and patient would not be discharged on medication; patient verbalized understanding. Prior to admission patient had also been taking Seroquel, Lexapro, and Depakote which were discontinued due to hepatotoxicity risks. Patient was been started by weekend provider on lithium, denies medication side effects. Will initiate sleep aid and we'll continue to monitor patient's response to lithium and monitor need for dosing adjustment and medication side effects. Patient indicates he remains undecided as to his discharge plan at this time, informs jingle writer today he is not willing to return to previous outpatient providers at [facility], but is willing to consider outpatient treatment options other than those available in [place]. MANAGEMENT PLAN: Discontinue hydroxyzine 25 mg po hs PRN insomnia. Initiate med trial Ambien 5 mg by mouth PRN insomnia, continue [place] 300 mg po hs PA is evaluating patient's acute drop in H&H and ongoing increased LFTs. Maintain safety precautions Patient to attend groups and participate in unit programming to develop coping strategies Engage patient in discharge planning process and arrange meeting with support system to ensure discharge planning when appropriate Patient to follow up with PCM and carton making machine operator upon discharge TIME SPENT: 35 minutes. Vital Signs Vital Signs Date Time Temp Pulse Resp B/P Pulse Ox O2 Delivery O2 Flow Rate FiO2 05/18/16 06:36 98.0 92 18 108/62 05/16/16 19:10 Room Air 05/16/16 18:00 99 Laboratory Data 24H Labs Laboratory Tests 2 05/18/16 06:38: Blood Urea Nitrogen 15, Creatinine 0.65L, Sodium Level 144, Potassium Level 4.0 , Chloride Level 108H, Carbon Dioxide Level 32, Calcium Level 8.4L, Aspartate Amino Transf (AST/SGOT) 162H, Alanine Aminotransferase (ALT/SGPT) 727H, Alkaline Phosphatase 187H, Total Bilirubin 0.2, Total Protein 6.1L, Albumin 3.3 , Albumin/Globulin Ratio 1.18, Anion Gap 4L, Glomerular Filtration Rate > 60.0 CBC/BMP Laboratory Tests 05/18/16 06:38 Calcium Level 8.4 L, Aspartate Amino Transf (AST/SGOT) 162 H, Alanine Aminotransferase (ALT/SGPT) 727 H, Alkaline Phosphatase 187 H, Total Bilirubin 0.2, Total Protein 6.1 L, Albumin 3.3, Red Blood Count 3.32 L, Mean Corpuscular Volume 102.1 H, Mean Corpuscular Hemoglobin 34.4 H, Mean Corpuscular Hemoglobin Concent 33.7, Red Cell Distribution Width 13.2 Current Medications Current Medications Medications (Trade) Dose Ordered Sig/Nataliya Route PRN Reason Start Time Stop Time Status Last Admin Dose Admin Al Hydrox/Mg Hydrox/Simethicone (Mylanta) 30 ml Q4HP PRN PO HEARTBURN/INDIGESTION 05/13/16 20:30 06/12/16 20:29 05/13/16 21:30 Albuterol Sulfate (Proventil, Ventolin Hfa) 2 puff Q4HP PRN INH SHORTNESS OF BREATH 05/13/16 20:30 06/12/16 20:29 Carbamide Perox/ Anhydrous Glycerin (Debrox) 10 drop BID AU 05/16/16 09:00 05/19/16 21:01 05/18/16 09:18 Clotrimazole (Lotrimin) to rash on feet.and right hand BID TOP 05/16/16 09:00 06/15/16 08:59 05/17/16 21:56 Divalproex Sodium (Depakote Er) 750 mg QHS PO 05/13/16 21:00 05/15/16 15:01 DC 05/14/16 21:14 Docusate Sodium (Colace) 200 mg DAILY PO 05/14/16 09:00 06/13/16 08:59 05/18/16 09:18 Famotidine (Pepcid) 20 mg BID PO 05/16/16 09:00 06/15/16 08:59 05/18/16 09:18 Ferrous Sulfate (Ferrous Sulfate) 325 mg BID PO 05/13/16 21:00 06/12/16 20:59 05/18/16 09:18 Fexofenadine HCl (Enriqueta) 60 mg DAILY PO 05/14/16 09:00 06/13/16 08:59 05/18/16 09:19 Fluocinonide (Lidex 0.05%) 1 dose BID PRN TOP ITCHING 05/13/16 20:30 06/12/16 20:29 Fluticasone Propionate (Flonase 0.05% Nasal [place]) 2 spray DAILY NA 05/15/16 09:00 06/14/16 08:59 05/18/16 09:18 Halobetasol Propionate (Ultravate 0.05%) 1 dose BIDP PRN TOP DERMATITIS 05/13/16 20:30 06/12/16 20:29 Home Med (Med Rec Complete!) ASDIRECTED XX 05/13/16 17:45 05/13/16 17:45 DC Hydroxyzine HCl (Vistaril) 25 mg QHSP PRN PO INSOMNIA 05/17/16 19:45 05/18/16 18:11 DC Ibuprofen (Advil) 200 mg Q8HP PRN PO PAIN 05/15/16 16:30 05/15/16 23:02 DC 05/15/16 18:06 Ibuprofen (Advil) 400 mg Q6HP PRN PO PAIN 05/13/16 20:30 05/15/16 16:11 DC 05/14/16 21:14 Ibuprofen (Advil) 400 mg Q8H PO 05/15/16 22:00 06/14/16 21:59 05/18/16 14:47 [place] Carbonate ([place] Carbonate) 300 mg QHS PO 05/15/16 21:00 06/14/16 20:59 05/17/16 21:54 Magnesium Hydroxide (Milk Of Magnesia) 30 ml DAILYPRN PRN PO CONSTIPATION 05/13/16 20:30 05/15/16 15:19 DC Menthol/Methyl Salicylate (Bengay Cream) 1 dose BIDP PRN TOP PAIN 05/13/16 20:30 06/12/16 20:29 05/17/16 21:56 Nicotine (Nicoderm Cq 21mg) 1 patch DAILY TD 05/13/16 22:00 06/12/16 21:59 05/18/16 09:19 Nystatin (Mycostatin Powder, Nystop) 1 dose BID TOP 05/16/16 09:00 06/15/16 08:59 05/17/16 21:55 Polyethylene Glycol (Miralax) 1 pkt Q2D PO 05/14/16 09:00 06/13/16 08:59 05/16/16 09:24 Trazodone HCl (Desyrel) 50 mg QHSP PRN PO INSOMNIA 05/13/16 20:30 05/15/16 15:19 DC Venlafaxine HCl (Effexor) 75 mg DAILY PO 05/14/16 09:00 05/15/16 15:19 DC 05/15/16 09:56 Venlafaxine HCl (Effexor) 150 mg DAILY PO 05/16/16 09:00 05/16/16 21:27 DC 05/16/16 09:25 Zolpidem Tartrate (Ambien) 5 mg QHSP PRN PO INSOMNIA 05/18/16 18:15 05/25/16 18:14 UNV Allergies Coded Allergies: Amitriptyline (Verified Allergy, Mild, Rash, 11/26/14) Thioridazine (Verified Allergy, Mild, EPS, 11/26/14) Risperidone (Verified Adverse Reaction, Unknown, EPS, 05/13/16) Indu Flores May 18, 2016 18:21 Thioridazine (Verified Allergy, Mild, EPS, 11/26/14) Risperidone (Verified Adverse Reaction, Unknown, EPS, 05/13/16) Indu Flores May 18, 2016 18:21
[2016-05-18] MEDS: LITHIUM CARBONATE 300 MG CAP PO SCH (21:51)
[2016-05-19] MEDS: IBUPROFEN 400 MG TAB PO SCH ×3 (06:06→21:29)
[2016-05-19 06:46] VITALS: BP 115/89
[2016-05-19 06:55] LABS: MEAN CORPUSCULAR HEMOGLOBIN 34.4 pg (27.0-33.0); MEAN CORPUSCULAR VOLUME 104.3 fl (80.0-96.0); WHITE BLOOD COUNT 10.1 K/mm3 (4.0-10.0)
[2016-05-19 07:20] LABS: ALBUMIN 3.3 GM/DL (3.2-5.2); ALBUMIN/GLOBULIN RATIO 1.22 (1.00-1.93); ALKALINE PHOSPHATASE 176 U/L (45-117); ALT/SGPT 541 U/L (12-78); ANION GAP 6 MEQ/L (8-16); AST/SGOT 90 U/L (15-37); BILIRUBIN,TOTAL 0.2 MG/DL (0.2-1.0); BLOOD UREA NITROGEN 19 MG/DL (7-18); CALCIUM LEVEL 8.2 MG/DL (8.5-10.1); CARBON DIOXIDE LEVEL 29 MEQ/L (21-32); CHLORIDE LEVEL 109 MEQ/L (98-107); CREATININE FOR GFR 0.64 MG/DL (0.70-1.30); GLOMERULAR FILTRATION RATE > 60.0 (>60); GLUCOSE, FASTING 82 MG/DL (70-105); POTASSIUM SERUM 3.9 MEQ/L (3.5-5.1); SODIUM LEVEL 144 MEQ/L (136-145)
[2016-05-19 07:23] LABS: PERCENT SATURATION 39.9 % (19.7-37.4)
[2016-05-19] MEDS: FLUTICASONE PROP 0.05% NASAL SPRAY 16 GM (FLONASE) SCH (08:56)
[2016-05-19] MEDS: CARBAMIDE PEROXIDE 6.5% OTIC SOLN 15ML AU SCH ×2 (08:56→21:00)
[2016-05-19] MEDS: DOCUSATE SODIUM 100 MG CAP PO SCH (08:57)
[2016-05-19] MEDS: FERROUS SULFATE 325MG TAB PO SCH ×2 (08:57→21:29)
[2016-05-19] MEDS: FAMOTIDINE 20 MG TAB PO SCH ×2 (08:57→21:29)
[2016-05-19] MEDS: NYSTATIN 100,000 UNITS/GM TOPICAL PWD 15 GM TOP SCH ×2 (08:58→21:00)
[2016-05-19] MEDS: NICOTINE 21MG/24HR 1 EA TRANSDERMAL TD SCH (08:58)
[2016-05-19] MEDS: FEXOFENADINE 60 MG TAB PO SCH (08:58)
[2016-05-19] MEDS: CLOTRIMAZOLE 1% TOPICAL CREAM 30GM TOP SCH ×2 (08:58→21:00)
[2016-05-19 10:21] LABS: FOLATE 9.3 NG/ML (>5.4)
[2016-05-19 14:15] LABS: HEPATITIS C QUANTITATION HCV Not Detected IU/mL (.)
--- NOTE | 2016-05-19 17:13 | IPNPDOC ---
[facility] Progress Note Progress Note DATE OF SERVICE: 05/19/16 HISTORY: Patient was seen today to evaluate treatment progress on inpatient unit. Patient remains anxious regarding pending lab results and US. Patient is observed to be up and out of bed during day, indicates he is attending most groups, engaging selectively with peers. Patient reports anxiety 2/10, depression 5/10, denies suicidal and homicidal thinking, denies audiovisual hallucinations, denies urge to engage in self-injurious behavior. Patient states he has not heard audio hallucinations (generally experienced at night), 2 days and states he has not experienced suicidal ideation 2 days as well. When patient last experienced audio hallucinations he indicates subject of sensory experience was "suicidal stuff," denies having plan or intent to harm self or others at the time. Patient indicates she continues to feel irritable and impulsive at times, and describes symptoms of mood lability, is today requesting dose increase to lithium in effort to further stabilize mood, denies medication side effects. Patient states he did not take Ambien last night for sleep due to "it was already really tired and didn't feel like I needed a sleep aid." Patient states he slept well, is aware that sleep aid is to be taken as needed, denies nightmares symptoms. Patient remains agreeable to notify staff if symptoms of anxiety, depression, audio hallucinations, reemerge and/or become unmanageable. Patient remains aware he will require outpatient GI evaluation. Patient informs telegraphic typewriter operator chief today he spoke with PA confirmed patient does not have celiac disease and patient makes request for order change for regular diet. Patient states appetite remains normal, reports ongoing decreased energy level, reports improvement sleep and reports ongoing moderate pain to legs and back. Of note: Discovered in one of his testing results entries, patient apparently has a reported history of eating cat food. Also of note: According to ED admission note, patient wrote a suicide note in which he indicated plan to cut wrist prior to hospitalization, patient verifies history of desire to harm, not kill, others, informs telegraphic typewriter operator chief he has never had plan or intent. VITAL SIGNS: See below. NEW TEST RESULTS: PA is currently evaluating patient's US, lab results and hepatitis testing status. At time of admission patient reported Celiac disease ( not confirmed by testing), GERD, history of constipation. CURRENT MEDICATIONS: See below. MENTAL STATUS EXAMINATION: Patient is a 35-year-old male, with improved hygiene today, was in bed at time of interaction but sat up readily to engage with telegraphic typewriter operator chief, appears disheveled. Patient is engageable, calm and cooperative, makes good eye contact, appears stated age. Speech: Regular rate, rhythm, volume, coherent Eye contact: Adequate Thought processes: Linear, Goal-directed Thought content: Remains concerned with testing results, otherwise within normal limits, denies suicidal and homicidal ideation, denies urge to engage in self-injurious behavior Description of abnormal or psychotic thoughts: Patient currently denies auditory hallucinations. He reported distressing auditory hallucinations that commanded him to kill himself prior to admission, indicates he sometimes experiences at night, denies X 2 days and denies command element to symptoms, denies experiencing plan or intent to harm self or others Judgment: Poor Insight: Poor Orientation to time, place and person. Recent and remote memory: Intact. Immediate short-term and long-term memory is: intact. Attention span and concentration: fair. Mood: "A little better." Patient appears less depressed and anxious today Affect: Constricted, but brightens, congruent with mood DIAGNOSES: Unspecified mood disorder, rule out bipolar disorder, rule out MDD recurrent severe with psychotic features, ADHD reported history ASSESSMENT: Patient has been visible on unit and participating in groups, is engageable, socializes with roommate and select peers. Patient reports ongoing symptoms of anxiety and depression, denies suicidal and homicidal ideation, denies current audiovisual hallucinations, indicates he has a history of experiencing audio hallucinations at night telling him he is "no good" and that he should kill himself. Patient is able to agree to alert staff symptoms reemerge and/or become unmanageable. Patient makes request for increased lithium dosing to further address symptoms of irritability and impulsivity. Patient makes inquiry regarding blood work results, was informed that PA is monitoring and will follow up with him one results are known. Patient expresses concerns regarding his physical health. Patient did not trial Sleep-Aid last night due to lack of need, remains aware medication is available to him on an as -needed basis. Patient reports history of recreational alcohol consumption and marijuana use, denies all substance use since 2012 and, due to patient's physical health status and history of trialing other medications, telegraphic typewriter operator chief again discussed short-term use of Ambien to address sleep challenges. Patient was again educated on potential risks, benefits, side effects and possibility for dependence with Ambien and was informed that prescription would be for shortest duration needed and patient would not be discharged on medication; patient verbalized understanding. Prior to admission patient had also been taking Seroquel, Lexapro, and Depakote which were discontinued due to hepatotoxicity risks. Patient was been started by weekend provider on lithium, feels medication is helpful, requests dose increase and denies medication side effects. Will increase [place] in effort to reduce impulsivity and irritability , continue sleep aid as needed. Will continue to monitor patient's response to lithium and monitor need for dosing adjustment and labs when indicated. Patient states he wants to discharge to home with sister when stable; sister has agreed patient may reside with her. Patient reiterates today he is not willing to return to previous outpatient providers at [facility], but is willing to consider outpatient treatment options other than those available in [place]. MANAGEMENT PLAN: Increase lithium to 300 mg po BID, continue Ambien 5 mg by mouth PRN insomnia PA is evaluating patient's acute drop in H&H and ongoing increased LFTs. Maintain safety precautions Patient to attend groups and participate in unit programming to develop coping strategies Engage patient in discharge planning process and arrange meeting with support system to ensure discharge planning when appropriate Patient to follow up with PCM and hot billet shear operator upon discharge TIME SPENT: 35 minutes. Vital Signs Vital Signs Date Time Temp Pulse Resp B/P Pulse Ox O2 Delivery O2 Flow Rate FiO2 05/19/16 06:46 96.4 88 20 115/89 05/16/16 19:10 Room Air 05/16/16 18:00 99 Laboratory Data 24H Labs Laboratory Tests 2 05/19/16 06:19: Blood Urea Nitrogen 19H, Creatinine 0.64L, Sodium Level 144, Potassium Level 3.9 , Chloride Level 109H, Carbon Dioxide Level 29, Calcium Level 8.2L, Aspartate Amino Transf (AST/SGOT) 90H, Alanine Aminotransferase (ALT/SGPT) 541H, Alkaline Phosphatase 176H, Total Bilirubin 0.2, Total Protein 6.0L, Albumin 3.3, Albumin/ Globulin Ratio 1.22, Anion Gap 6L, Ferritin 344, Folate 9.3, Glomerular Filtration Rate > 60.0, Iron Level 115, Total Iron Binding Capacity 288, Transferrin % Saturation 39.9H, Vitamin B12 Level 635 CBC/BMP Laboratory Tests 05/19/16 06:19 Calcium Level 8.2 L, Aspartate Amino Transf (AST/SGOT) 90 H, Alanine Aminotransferase (ALT/SGPT) 541 H, Alkaline Phosphatase 176 H, Total Bilirubin 0.2, Total Protein 6.0 L, Albumin 3.3, Red Blood Count 3.34 L, Mean Corpuscular Volume 104.3 H, Mean Corpuscular Hemoglobin 34.4 H, Mean Corpuscular Hemoglobin Concent 33.0, Red Cell Distribution Width 14.0 Current Medications Current Medications Medications (Trade) Dose Ordered Sig/Nataliya Route PRN Reason Start Time Stop Time Status Last Admin Dose Admin Al Hydrox/Mg Hydrox/Simethicone (Mylanta) 30 ml Q4HP PRN PO HEARTBURN/INDIGESTION 05/13/16 20:30 06/12/16 20:29 05/13/16 21:30 Albuterol Sulfate (Proventil, Ventolin Hfa) 2 puff Q4HP PRN INH SHORTNESS OF BREATH 05/13/16 20:30 06/12/16 20:29 Carbamide Perox/ Anhydrous Glycerin (Debrox) 10 drop BID AU 05/16/16 09:00 05/19/16 21:01 05/19/16 08:56 Clotrimazole (Lotrimin) to rash on feet.and right hand BID TOP 05/16/16 09:00 06/15/16 08:59 05/17/16 21:56 Divalproex Sodium (Depakote Er) 750 mg QHS PO 05/13/16 21:00 05/15/16 15:01 DC 05/14/16 21:14 Docusate Sodium (Colace) 200 mg DAILY PO 05/14/16 09:00 06/13/16 08:59 05/19/16 08:57 Famotidine (Pepcid) 20 mg BID PO 05/16/16 09:00 06/15/16 08:59 05/19/16 08:57 Ferrous Sulfate (Ferrous Sulfate) 325 mg BID PO 05/13/16 21:00 06/12/16 20:59 05/19/16 08:57 Fexofenadine HCl (Enriqueta) 60 mg DAILY PO 05/14/16 09:00 06/13/16 08:59 05/19/16 08:58 Fluocinonide (Lidex 0.05%) 1 dose BID PRN TOP ITCHING 05/13/16 20:30 06/12/16 20:29 Fluticasone Propionate (Flonase 0.05% Nasal [place]) 2 spray DAILY NA 05/15/16 09:00 06/14/16 08:59 05/19/16 08:56 Halobetasol Propionate (Ultravate 0.05%) 1 dose BIDP PRN TOP DERMATITIS 05/13/16 20:30 06/12/16 20:29 Home Med (Med Rec Complete!) ASDIRECTED XX 05/13/16 17:45 05/13/16 17:45 DC Hydroxyzine HCl (Vistaril) 25 mg QHSP PRN PO INSOMNIA 05/17/16 19:45 05/18/16 18:11 DC Ibuprofen (Advil) 200 mg Q8HP PRN PO PAIN 05/15/16 16:30 05/15/16 23:02 DC 05/15/16 18:06 Ibuprofen (Advil) 400 mg Q6HP PRN PO PAIN 05/13/16 20:30 05/15/16 16:11 DC 05/14/16 21:14 Ibuprofen (Advil) 400 mg Q8H PO 05/15/16 22:00 06/14/16 21:59 05/19/16 15:30 [place] Carbonate ([place] Carbonate) 300 mg QHS PO 05/15/16 21:00 06/14/16 20:59 05/18/16 21:51 Magnesium Hydroxide (Milk Of Magnesia) 30 ml DAILYPRN PRN PO CONSTIPATION 05/13/16 20:30 05/15/16 15:19 DC Menthol/Methyl Salicylate (Bengay Cream) 1 dose BIDP PRN TOP PAIN 05/13/16 20:30 06/12/16 20:29 05/17/16 21:56 Nicotine (Nicoderm Cq 21mg) 1 patch DAILY TD 05/13/16 22:00 06/12/16 21:59 05/19/16 08:58 Nystatin (Mycostatin Powder, Nystop) 1 dose BID TOP 05/16/16 09:00 06/15/16 08:59 05/17/16 21:55 Polyethylene Glycol (Miralax) 1 pkt Q2D PO 05/14/16 09:00 06/13/16 08:59 05/16/16 09:24 Trazodone HCl (Desyrel) 50 mg QHSP PRN PO INSOMNIA 05/13/16 20:30 05/15/16 15:19 DC Venlafaxine HCl (Effexor) 75 mg DAILY PO 05/14/16 09:00 05/15/16 15:19 DC 05/15/16 09:56 Venlafaxine HCl (Effexor) 150 mg DAILY PO 05/16/16 09:00 05/16/16 21:27 DC 05/16/16 09:25 Zolpidem Tartrate (Ambien) 5 mg QHSP PRN PO INSOMNIA 05/18/16 18:15 05/25/16 18:14 Allergies Coded Allergies: Amitriptyline (Verified Allergy, Mild, Rash, 11/26/14) Thioridazine (Verified Allergy, Mild, EPS, 11/26/14) Risperidone (Verified Adverse Reaction, Unknown, EPS, 05/13/16) Indu Flores May 19, 2016 17:12
[2016-05-19 18:00] VITALS: BP 98/52
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
[2016-05-19] MEDS: LITHIUM CARBONATE 300 MG CAP PO SCH (21:29)
[2016-05-20] MEDS: IBUPROFEN 400 MG TAB PO SCH ×3 (06:04→22:14)
[2016-05-20 06:42] VITALS: BP 88/50
[2016-05-20 07:03] LABS: MEAN CORPUSCULAR HGB CONC 33.4 g/dl (32.0-36.5); MEAN CORPUSCULAR VOLUME 104.8 fl (80.0-96.0); RED CELL DISTRIBUTION WIDTH 14.2 % (11.5-14.5); WHITE BLOOD COUNT 11.7 K/mm3 (4.0-10.0)
[2016-05-20 07:14] LABS: REASON FOR REVIEW COMPREHENSIVE REVIEW
[2016-05-20 07:16] LABS: RETIC HEMOGLOBIN CONTENT CHr 37.2 PG (24-36); RETICULOCYTE ABSOLUTE ADVIA212 150 x10(9)/L (17-77)
[2016-05-20 07:40] LABS: ALBUMIN 3.4 GM/DL (3.2-5.2); ALBUMIN/GLOBULIN RATIO 1.21 (1.00-1.93); ALKALINE PHOSPHATASE 158 U/L (45-117); ALT/SGPT 407 U/L (12-78); ANION GAP 7 MEQ/L (8-16); AST/SGOT 54 U/L (15-37); BILIRUBIN,TOTAL 0.3 MG/DL (0.2-1.0); BLOOD UREA NITROGEN 19 MG/DL (7-18); CALCIUM LEVEL 8.2 MG/DL (8.5-10.1); CARBON DIOXIDE LEVEL 29 MEQ/L (21-32); CHLORIDE LEVEL 107 MEQ/L (98-107); CREATININE FOR GFR 0.66 MG/DL (0.70-1.30); GLOMERULAR FILTRATION RATE > 60.0 (>60); GLUCOSE, FASTING 80 MG/DL (70-105); POTASSIUM SERUM 3.9 MEQ/L (3.5-5.1); SODIUM LEVEL 143 MEQ/L (136-145); TOTAL PROTEIN 6.2 GM/DL (6.4-8.2)
[2016-05-20] MEDS: LITHIUM CARBONATE 300 MG CAP PO SCH ×2 (08:30→22:10)
[2016-05-20] MEDS: MIRALAX *UNIT DOSE* 17GM PACKET PO SCH (08:30)
[2016-05-20] MEDS: FERROUS SULFATE 325MG TAB PO SCH ×2 (08:30→22:10)
[2016-05-20] MEDS: DOCUSATE SODIUM 100 MG CAP PO SCH (08:30)
[2016-05-20] MEDS: NYSTATIN 100,000 UNITS/GM TOPICAL PWD 15 GM TOP SCH ×2 (08:31→21:00)
[2016-05-20] MEDS: NICOTINE 21MG/24HR 1 EA TRANSDERMAL TD SCH (08:31)
[2016-05-20] MEDS: FEXOFENADINE 60 MG TAB PO SCH (08:31)
[2016-05-20] MEDS: CLOTRIMAZOLE 1% TOPICAL CREAM 30GM TOP SCH ×2 (08:31→21:00)
[2016-05-20] MEDS: FLUTICASONE PROP 0.05% NASAL SPRAY 16 GM (FLONASE) SCH (08:31)
[2016-05-20] MEDS: FAMOTIDINE 20 MG TAB PO SCH ×2 (08:31→22:09)
--- NOTE | 2016-05-20 15:23 | IPNPDOC ---
Assessment/Plan Date Seen The patient was seen on 05/20/16. Problems Problems: (1) Elevated LFTs Status: Acute Problem Text: * RUQ U/S unremarkable. * Hepatitis testing reviewed, hepatitis A result noted. This is reviewed with Dr. Garcia. hepatitis A IgM neg. * hepatitis C RNA neg. * monoscreen neg * LFTs are trending downward. Recheck labs in a.m. * Gastroenterology records from [facility] with [place]- poor prep/EGD mild gastritis. Celiac neg. H Pylori neg. * Per pt outpt Liver Biopsy planned per GI [place]. * LFTs Continue to trend downward. * Peripheral smear requested. (MCV elevated) * SPEP requested. (2) Chronic bilateral low back pain Status: Chronic Problem Text: * pain mgmt CLT * XR LS Spine unremarkable. * Advil as needed * BenGay cream as needed. (3) Rash Status: Acute Problem Text: * Nystatin powder groin folds. Plan / VTE VTE Prophylaxis Ordered?: No (ambulatory) Subjective Review of Systems CC/HPI The patient is a 25-year-old male admitted with a reason for visit of Depressive Do Unspecified. Events since last encounter Pt with no new complaints. Objective Physical Examination General Exam: Positive: Alert Eye Exam: Positive: PERRLA Chest Exam: Positive: Clear to auscultation, Normal air movement Heart Exam: Positive: Normal S1, Normal S2, Rate Normal, Regular Rhythm, Negative: Murmurs, Rubs Abdomen Exam: Positive: Normal bowel sounds, Soft, Negative: Hepatospenomegaly, Tenderness Skin Exam: Positive: Nl turgor and temperature, Other skin issue (erythematous rash groin folds. ) Neuro Exam: Positive: Normal Gait Vital Signs/I&O Vital Signs Date Time Temp Pulse Resp B/P Pulse Ox O2 Delivery O2 Flow Rate FiO2 05/20/16 06:42 96.9 84 20 88/50 05/16/16 19:10 Room Air 05/16/16 18:00 99 Laboratory Data Labs 24H Laboratory Tests 2 05/20/16 06:33: Absolute Reticulocyte Count 150H, Blood Urea Nitrogen 19H, Creatinine 0.66L, Sodium Level 143, Potassium Level 3.9, Chloride Level 107, Carbon Dioxide Level 29, Calcium Level 8.2L, Aspartate Amino Transf (AST/SGOT) 54H, Alanine Aminotransferase (ALT/SGPT) 407H, Alkaline Phosphatase 158H, Total Bilirubin 0.3 , Total Protein 6.2L, Albumin 3.4, Albumin/Globulin Ratio 1.21, Anion Gap 7L, Differential Pathologist's Review COMPREHENSIVE REVIEW, Differential Slide Review Report, Glomerular Filtration Rate > 60.0, Percent Reticulocyte Count 4.50H, Peripheral Blood Smear Path Consult PERIPHERAL SMEAR, Reticulocyte Hgb Content (CHr) 37.2H CBC/BMP Laboratory Tests 05/20/16 06:33 Calcium Level 8.2 L, Aspartate Amino Transf (AST/SGOT) 54 H, Alanine Aminotransferase (ALT/SGPT) 407 H, Alkaline Phosphatase 158 H, Total Bilirubin 0.3, Total Protein 6.2 L, Albumin 3.4, Red Blood Count 3.30 L, Mean Corpuscular Volume 104.8 H, Mean Corpuscular Hemoglobin 35.0 H, Mean Corpuscular Hemoglobin Concent 33.4, Red Cell Distribution Width 14.2 Microbiology Microbiology 05/16/16 Stool Occult Blood (MATT) - Final, Complete Brandy Davis May 20, 2016 15:23
[2016-05-20 18:00] VITALS: BP 109/59
--- NOTE | 2016-05-20 18:34 | IPNPDOC ---
[facility] Progress Note Progress Note DATE OF SERVICE: 05/20/16 HISTORY: Patient was seen today to evaluate treatment progress on inpatient unit. Patient remains anxious regarding pending lab results and US. Patient is observed to be up and out of bed during day, indicates he is attending most groups, engaging selectively with peers. Patient today reports anxiety 2/10, depression 4/10, initially denies suicidal and homicidal ideation, then indicates "sometimes" he has thoughts of harming self, denies experiencing plan or intent and is able to agree to alert staff if symptoms worsen or become unmanageable, further denies thoughts of harming others. Patient denies audiovisual hallucinations and denies urge to engage in self-injurious behavior. Patient denies recent symptoms of audiovisual hallucinations. Patient reports reduced irritability with lithium dose increase, continues to feel impulsive but feels symptoms are improving, indicates mood feels more level and denies medication side effects. Patient took Ambien 5 mg last night and states medication worked well, denies nightmares. Patient verbalizes awareness that Sleep-Aid is to be used when needed and will be changed once patient's physical health status has stabilized. Patient remains agreeable to notify staff if symptoms of anxiety, depression, audio hallucinations, reemerge and/or become unmanageable. Patient remains aware he will require outpatient GI evaluation. Patient states appetite has improved and energy level is beginning to improve. Patient reports ongoing moderate pain to legs and back. Of note: Discovered in one of his testing results entries, patient apparently has a reported history of eating cat food. Also of note: According to ED admission note, patient wrote a suicide note in which he indicated plan to cut wrist prior to hospitalization, patient verified history of desire to harm, not kill, others, informs principal technical writer he has never had plan or intent. VITAL SIGNS: See below. NEW TEST RESULTS: PA is currently evaluating patient's US, lab results and hepatitis testing status. At time of admission patient reported Celiac disease ( not confirmed by testing), GERD, history of constipation. CURRENT MEDICATIONS: See below. MENTAL STATUS EXAMINATION: Patient is a 35-year-old male, was in bed at time of interaction but sat up readily to engage with principal technical writer, appears disheveled. Patient is engageable, calm and cooperative, makes good eye contact, appears stated age. Speech: Regular rate, rhythm, volume, coherent Eye contact: Adequate Thought processes: Linear, Goal-directed Thought content: Remains concerned with testing results, otherwise within normal limits, denies current suicidal and homicidal ideation, denies urge to engage in self-injurious behavior Description of abnormal or psychotic thoughts: Patient currently denies auditory hallucinations. He reported distressing auditory hallucinations that commanded him to kill himself prior to admission, indicates he sometimes experiences at night, denies X 3 days and denies command element to symptoms, denies experiencing plan or intent to harm self or others Judgment: Poor Insight: Poor, some improvement Orientation to time, place and person. Recent and remote memory: Intact. Immediate short-term and long-term memory is: intact. Attention span and concentration: fair. Mood: "Better." Patient appears less depressed and anxious today, mood appears more level Affect: Constricted, but brightens, congruent with mood DIAGNOSES: Unspecified mood disorder, rule out bipolar disorder, rule out MDD recurrent severe with psychotic features, ADHD reported history ASSESSMENT: Patient has been visible on unit and participating in groups, is engageable, socializes with roommate and select peers. Patient reports ongoing symptoms of anxiety and depression, denies suicidal and homicidal ideation at time of interaction but indicates intermittent suicidal ideation without plan or intent. Patient denies current audiovisual hallucinations, has indicated he has a history of experiencing audio hallucinations at night telling him he is "no good" and that he should kill himself. Patient is able to agree to alert staff symptoms reemerge and/or become unmanageable. Patient indicates increased lithium dose is helping, denies need for follow-up dose increase at this time but agrees to monitor for need to further address symptoms of mood labililty, impulsivity, agitation. Patient remains concerned about his physical health. Guide Setter again discussed short-term use of Ambien to address sleep challenges and patient was again educated on potential risks, benefits, side effects and possibility for dependence with Ambien and was informed that prescription would be for shortest duration needed and patient would not be discharged on medication; patient verbalized understanding. Prior to admission patient had also been taking Seroquel, Lexapro, and Depakote which were discontinued due to hepatotoxicity risks. Will continue to monitor agents response to lithium with follow-up lab as indicated, will continue sleep aid as needed. Patient states he wants to discharge to home with sister when stable; sister has agreed patient may reside with her. Patient reiterates today he is not willing to return to previous outpatient providers at [facility], but is willing to consider outpatient treatment options other than those available in [place]. MANAGEMENT PLAN: Continue lithium 300 mg po BID and evaluate need for dosing adjustment, continue Ambien 5 mg by mouth PRN insomnia PA is evaluating patient's acute drop in H&H and ongoing increased LFTs. Maintain safety precautions Patient to attend groups and participate in unit programming to develop coping strategies Engage patient in discharge planning process and arrange meeting with support system to ensure discharge planning when appropriate Patient to follow up with PCM and system specialist upon discharge TIME SPENT: 35 minutes. Vital Signs Vital Signs Date Time Temp Pulse Resp B/P Pulse Ox O2 Delivery O2 Flow Rate FiO2 05/20/16 06:42 96.9 84 20 88/50 05/16/16 19:10 Room Air 05/16/16 18:00 99 Laboratory Data 24H Labs Laboratory Tests 2 05/20/16 06:33: Absolute Reticulocyte Count 150H, Blood Urea Nitrogen 19H, Creatinine 0.66L, Sodium Level 143, Potassium Level 3.9, Chloride Level 107, Carbon Dioxide Level 29, Calcium Level 8.2L, Aspartate Amino Transf (AST/SGOT) 54H, Alanine Aminotransferase (ALT/SGPT) 407H, Alkaline Phosphatase 158H, Total Bilirubin 0.3 , Total Protein 6.2L, Albumin 3.4, Albumin/Globulin Ratio 1.21, Anion Gap 7L, Differential Pathologist's Review COMPREHENSIVE REVIEW, Differential Slide Review Report, Glomerular Filtration Rate > 60.0, Percent Reticulocyte Count 4.50H, Peripheral Blood Smear Path Consult PERIPHERAL SMEAR, Reticulocyte Hgb Content (CHr) 37.2H CBC/BMP Laboratory Tests 05/20/16 06:33 Calcium Level 8.2 L, Aspartate Amino Transf (AST/SGOT) 54 H, Alanine Aminotransferase (ALT/SGPT) 407 H, Alkaline Phosphatase 158 H, Total Bilirubin 0.3, Total Protein 6.2 L, Albumin 3.4, Red Blood Count 3.30 L, Mean Corpuscular Volume 104.8 H, Mean Corpuscular Hemoglobin 35.0 H, Mean Corpuscular Hemoglobin Concent 33.4, Red Cell Distribution Width 14.2 Current Medications Current Medications Medications (Trade) Dose Ordered Sig/Nataliya Route PRN Reason Start Time Stop Time Status Last Admin Dose Admin Al Hydrox/Mg Hydrox/Simethicone (Mylanta) 30 ml Q4HP PRN PO HEARTBURN/INDIGESTION 05/13/16 20:30 06/12/16 20:29 05/13/16 21:30 Albuterol Sulfate (Proventil, Ventolin Hfa) 2 puff Q4HP PRN INH SHORTNESS OF BREATH 05/13/16 20:30 06/12/16 20:29 Carbamide Perox/ Anhydrous Glycerin (Debrox) 10 drop BID AU 05/16/16 09:00 05/19/16 21:01 DC 05/19/16 08:56 Clotrimazole (Lotrimin) to rash on feet.and right hand BID TOP 05/16/16 09:00 06/15/16 08:59 05/20/16 08:31 Divalproex Sodium (Depakote Er) 750 mg QHS PO 05/13/16 21:00 05/15/16 15:01 DC 05/14/16 21:14 Docusate Sodium (Colace) 200 mg DAILY PO 05/14/16 09:00 06/13/16 08:59 05/20/16 08:30 Famotidine (Pepcid) 20 mg BID PO 05/16/16 09:00 06/15/16 08:59 05/20/16 08:31 Ferrous Sulfate (Ferrous Sulfate) 325 mg BID PO 05/13/16 21:00 06/12/16 20:59 05/20/16 08:30 Fexofenadine HCl (Enriqueta) 60 mg DAILY PO 05/14/16 09:00 06/13/16 08:59 05/20/16 08:31 Fluocinonide (Lidex 0.05%) 1 dose BID PRN TOP ITCHING 05/13/16 20:30 06/12/16 20:29 Fluticasone Propionate (Flonase 0.05% Nasal [place]) 2 spray DAILY NA 05/15/16 09:00 06/14/16 08:59 05/20/16 08:31 Halobetasol Propionate (Ultravate 0.05%) 1 dose BIDP PRN TOP DERMATITIS 05/13/16 20:30 06/12/16 20:29 Home Med (Med Rec Complete!) ASDIRECTED XX 05/13/16 17:45 05/13/16 17:45 DC Hydroxyzine HCl (Vistaril) 25 mg QHSP PRN PO INSOMNIA 05/17/16 19:45 05/18/16 18:11 DC Ibuprofen (Advil) 200 mg Q8HP PRN PO PAIN 05/15/16 16:30 05/15/16 23:02 DC 05/15/16 18:06 Ibuprofen (Advil) 400 mg Q6HP PRN PO PAIN 05/13/16 20:30 05/15/16 16:11 DC 05/14/16 21:14 Ibuprofen (Advil) 400 mg Q8H PO 05/15/16 22:00 06/14/16 21:59 05/20/16 06:04 [place] Carbonate (Blue Ash Carbonate) 300 mg BID PO 05/19/16 21:00 06/18/16 20:59 05/20/16 08:30 [place] Carbonate (Blue Ash Carbonate) 300 mg QHS PO 05/15/16 21:00 05/19/16 17:38 DC 05/18/16 21:51 Magnesium Hydroxide (Milk Of Magnesia) 30 ml DAILYPRN PRN PO CONSTIPATION 05/13/16 20:30 05/15/16 15:19 DC Menthol/Methyl Salicylate (Bengay Cream) 1 dose BIDP PRN TOP PAIN 05/13/16 20:30 06/12/16 20:29 05/17/16 21:56 Nicotine (Nicoderm Cq 21mg) 1 patch DAILY TD 05/13/16 22:00 06/12/16 21:59 05/20/16 08:31 Nystatin (Mycostatin Powder, Nystop) 1 dose BID TOP 05/16/16 09:00 06/15/16 08:59 05/17/16 21:55 Polyethylene Glycol (Miralax) 1 pkt Q2D PO 05/14/16 09:00 06/13/16 08:59 05/20/16 08:30 Trazodone HCl (Desyrel) 50 mg QHSP PRN PO INSOMNIA 05/13/16 20:30 05/15/16 15:19 DC Venlafaxine HCl (Effexor) 75 mg DAILY PO 05/14/16 09:00 05/15/16 15:19 DC 05/15/16 09:56 Venlafaxine HCl (Effexor) 150 mg DAILY PO 05/16/16 09:00 05/16/16 21:27 DC 05/16/16 09:25 Zolpidem Tartrate (Ambien) 5 mg QHSP PRN PO INSOMNIA 05/18/16 18:15 05/25/16 18:14 Allergies Coded Allergies: Amitriptyline (Verified Allergy, Mild, Rash, 11/26/14) Thioridazine (Verified Allergy, Mild, EPS, 11/26/14) Risperidone (Verified Adverse Reaction, Unknown, EPS, 05/13/16) Indu Flores May 20, 2016 18:34
[2016-05-21] MEDS: IBUPROFEN 400 MG TAB PO SCH ×3 (05:44→23:59)
[2016-05-21 06:43] VITALS: BP 100/59
[2016-05-21 06:55] LABS: MEAN CORPUSCULAR HEMOGLOBIN 34.9 pg (27.0-33.0); MEAN CORPUSCULAR HGB CONC 32.6 g/dl (32.0-36.5); MEAN CORPUSCULAR VOLUME 107.1 fl (80.0-96.0); RED CELL DISTRIBUTION WIDTH 14.4 % (11.5-14.5); WHITE BLOOD COUNT 11.8 K/mm3 (4.0-10.0)
[2016-05-21 07:19] LABS: ALBUMIN 3.2 GM/DL (3.2-5.2); ALBUMIN/GLOBULIN RATIO 1.33 (1.00-1.93); ALKALINE PHOSPHATASE 170 U/L (45-117); ALT/SGPT 304 U/L (12-78); ANION GAP 8 MEQ/L (8-16); AST/SGOT 39 U/L (15-37); BILIRUBIN,TOTAL 0.1 MG/DL (0.2-1.0); BLOOD UREA NITROGEN 18 MG/DL (7-18); CALCIUM LEVEL 8.5 MG/DL (8.5-10.1); CARBON DIOXIDE LEVEL 29 MEQ/L (21-32); CHLORIDE LEVEL 108 MEQ/L (98-107); CREATININE FOR GFR 0.67 MG/DL (0.70-1.30); GLOMERULAR FILTRATION RATE > 60.0 (>60); GLUCOSE, FASTING 86 MG/DL (70-105); POTASSIUM SERUM 3.7 MEQ/L (3.5-5.1); SODIUM LEVEL 145 MEQ/L (136-145); TOTAL PROTEIN 5.6 GM/DL (6.4-8.2)
[2016-05-21] MEDS: CLOTRIMAZOLE 1% TOPICAL CREAM 30GM TOP SCH ×2 (09:00→21:00)
[2016-05-21] MEDS: NYSTATIN 100,000 UNITS/GM TOPICAL PWD 15 GM TOP SCH ×2 (09:00→21:00)
[2016-05-21] MEDS: NICOTINE 21MG/24HR 1 EA TRANSDERMAL TD SCH (09:00)
[2016-05-21] MEDS: DOCUSATE SODIUM 100 MG CAP PO SCH (09:17)
[2016-05-21] MEDS: FEXOFENADINE 60 MG TAB PO SCH (09:17)
[2016-05-21] MEDS: LITHIUM CARBONATE 300 MG CAP PO SCH ×2 (09:17→23:59)
[2016-05-21] MEDS: FAMOTIDINE 20 MG TAB PO SCH ×2 (09:17→23:58)
[2016-05-21] MEDS: FERROUS SULFATE 325MG TAB PO SCH ×2 (09:17→23:59)
[2016-05-21] MEDS: FLUTICASONE PROP 0.05% NASAL SPRAY 16 GM (FLONASE) SCH (09:18)
[2016-05-21 14:11] LABS: HBVCOREDIFF1 Negative (Negative)
[2016-05-21 18:00] VITALS: BP 94/50
[2016-05-22 06:28] VITALS: BP 105/57
[2016-05-22] MEDS: IBUPROFEN 400 MG TAB PO SCH ×3 (06:34→21:15)
[2016-05-22 06:53] LABS: MEAN CORPUSCULAR HEMOGLOBIN 34.6 pg (27.0-33.0); MEAN CORPUSCULAR HGB CONC 32.3 g/dl (32.0-36.5); MEAN CORPUSCULAR VOLUME 107.1 fl (80.0-96.0); RED CELL DISTRIBUTION WIDTH 15.1 % (11.5-14.5); WHITE BLOOD COUNT 10.9 K/mm3 (4.0-10.0)
[2016-05-22 07:09] LABS: ALBUMIN 3.2 GM/DL (3.2-5.2); ALBUMIN/GLOBULIN RATIO 1.19 (1.00-1.93); ALKALINE PHOSPHATASE 179 U/L (45-117); ALT/SGPT 259 U/L (12-78); ANION GAP 7 MEQ/L (8-16); AST/SGOT 33 U/L (15-37); BILIRUBIN,TOTAL 0.2 MG/DL (0.2-1.0); BLOOD UREA NITROGEN 20 MG/DL (7-18); CALCIUM LEVEL 8.8 MG/DL (8.5-10.1); CARBON DIOXIDE LEVEL 30 MEQ/L (21-32); CHLORIDE LEVEL 107 MEQ/L (98-107); CREATININE FOR GFR 0.62 MG/DL (0.70-1.30); GLOMERULAR FILTRATION RATE > 60.0 (>60); GLUCOSE, FASTING 84 MG/DL (70-105); SODIUM LEVEL 144 MEQ/L (136-145); TOTAL PROTEIN 5.9 GM/DL (6.4-8.2)
[2016-05-22] MEDS: NYSTATIN 100,000 UNITS/GM TOPICAL PWD 15 GM TOP SCH ×2 (09:00→20:57)
[2016-05-22] MEDS: NICOTINE 21MG/24HR 1 EA TRANSDERMAL TD SCH (09:00)
[2016-05-22] MEDS: CLOTRIMAZOLE 1% TOPICAL CREAM 30GM TOP SCH ×2 (09:00→20:57)
[2016-05-22] MEDS: MIRALAX *UNIT DOSE* 17GM PACKET PO SCH (09:00)
[2016-05-22] MEDS: FLUTICASONE PROP 0.05% NASAL SPRAY 16 GM (FLONASE) SCH (09:24)
[2016-05-22] MEDS: FAMOTIDINE 20 MG TAB PO SCH ×2 (09:25→21:13)
[2016-05-22] MEDS: DOCUSATE SODIUM 100 MG CAP PO SCH (09:25)
[2016-05-22] MEDS: FERROUS SULFATE 325MG TAB PO SCH ×2 (09:25→21:12)
[2016-05-22] MEDS: LITHIUM CARBONATE 300 MG CAP PO SCH ×2 (09:25→21:12)
[2016-05-22] MEDS: FEXOFENADINE 60 MG TAB PO SCH (09:25)
[2016-05-22] MEDS: ANALGESIC BALM CRM 120 GM TOP PRN (10:10)
[2016-05-22 18:00] VITALS: BP 107/56
[2016-05-23] MEDS: IBUPROFEN 400 MG TAB PO SCH ×3 (06:06→21:33)
[2016-05-23 06:37] VITALS: BP 148/72
[2016-05-23 07:16] LABS: MEAN CORPUSCULAR HEMOGLOBIN 33.9 pg (27.0-33.0); RED CELL DISTRIBUTION WIDTH 15.4 % (11.5-14.5); WHITE BLOOD COUNT 10.3 K/mm3 (4.0-10.0)
[2016-05-23 07:34] LABS: ALBUMIN 3.2 GM/DL (3.2-5.2); ALBUMIN/GLOBULIN RATIO 1.23 (1.00-1.93); ALKALINE PHOSPHATASE 174 U/L (45-117); ALT/SGPT 209 U/L (12-78); ANION GAP 10 MEQ/L (8-16); AST/SGOT 32 U/L (15-37); BILIRUBIN,TOTAL 0.2 MG/DL (0.2-1.0); BLOOD UREA NITROGEN 23 MG/DL (7-18); CALCIUM LEVEL 8.5 MG/DL (8.5-10.1); CARBON DIOXIDE LEVEL 27 MEQ/L (21-32); CHLORIDE LEVEL 107 MEQ/L (98-107); CREATININE FOR GFR 0.67 MG/DL (0.70-1.30); GLOMERULAR FILTRATION RATE > 60.0 (>60); GLUCOSE, FASTING 85 MG/DL (70-105); POTASSIUM SERUM 4.1 MEQ/L (3.5-5.1); SODIUM LEVEL 144 MEQ/L (136-145); TOTAL PROTEIN 5.8 GM/DL (6.4-8.2)
[2016-05-23] MEDS: FLUTICASONE PROP 0.05% NASAL SPRAY 16 GM (FLONASE) SCH (08:52)
[2016-05-23] MEDS: LITHIUM CARBONATE 300 MG CAP PO SCH ×2 (08:52→21:33)
[2016-05-23] MEDS: FAMOTIDINE 20 MG TAB PO SCH ×2 (08:52→21:33)
[2016-05-23] MEDS: FERROUS SULFATE 325MG TAB PO SCH ×2 (08:52→21:32)
[2016-05-23] MEDS: FEXOFENADINE 60 MG TAB PO SCH (08:52)
[2016-05-23] MEDS: DOCUSATE SODIUM 100 MG CAP PO SCH (08:52)
[2016-05-23] MEDS: NICOTINE 21MG/24HR 1 EA TRANSDERMAL TD SCH (08:53)
[2016-05-23] MEDS: CLOTRIMAZOLE 1% TOPICAL CREAM 30GM TOP SCH ×2 (08:53→21:00)
[2016-05-23] MEDS: NYSTATIN 100,000 UNITS/GM TOPICAL PWD 15 GM TOP SCH ×2 (08:54→21:00)
[2016-05-23 11:16] LABS: ALBUMIN 3.99 GM/DL (3.29-5.55); ALBUMIN % 64.3 % (55.8-66.1); GAMMA GLOBULIN % 12.2 % (11.1-18.8)
[2016-05-23 18:19] VITALS: BP 100/60
--- NOTE | 2016-05-23 19:33 | IPNPDOC ---
[facility] Progress Note Progress Note DATE OF SERVICE: 05/23/16 HISTORY: Patient was seen today to evaluate treatment progress on inpatient unit. Patient remains anxious regarding pending lab results and US, makes requests to speak with PA. Patient is observed to be up and out of bed during day, indicates he is attending groups, engaging well with staff and peers. Patient denies symptoms of anxiety and depression, denies suicidal and homicidal ideation, denies urge to engage in self-injurious behavior, denies audiovisual hallucinations. Patient indicates he has not experienced suicidal ideation or urge to harm self for duration of weekend, informs sba underwriter he is feeling "much better," and states he would like to be discharged to home with his sister tomorrow. Patient denies need for medication dosing adjustment, indicates medication is working well and denies medication side effects. Patient also informs sba underwriter that until he finds out status of his physical health, he is not interested in restarting any medications which may jeopardize his liver function, further denies need for antidepressant medication or to address symptoms of psychosis due to no recent experiencing of symptoms. Patient denies symptoms of irritability or mood lability, denies symptoms of impulsivity, notes he fees lithium at current dose is effective. Patient has taken Ambien 5 mg po 1 since being in the hospital, indicates he is sleeping well without a sleep aid, today denies need for discharge to home with medication for sleep. Patient denies nightmares symptoms. Patient remains aware he will require outpatient GI evaluation. Patient states appetite is "really good," denies digestive challenges, notes his energy level has improved, denies challenges with concentration and focus. Patient reports ongoing moderate pain to legs and back. Also of note: According to ED admission note, patient wrote a suicide note in which he indicated plan to cut wrist prior to hospitalization, patient verified history of desire to harm, not kill, others, informs sba underwriter he has never had plan or intent. VITAL SIGNS: See below. NEW TEST RESULTS: 05/22/16 lithium level 0.36. PA is currently evaluating patient's US, lab results and hepatitis testing status. At time of admission patient reported Celiac disease (not confirmed by testing), GERD, history of constipation. CURRENT MEDICATIONS: See below. MENTAL STATUS EXAMINATION: Patient is a 25-year-old male, who is observed to be up out of bed, showered, dressed in hospital clothing with adequate personal hygiene, makes good eye contact today, requests to check in with sba underwriter to discuss discharge planning, makes good eye contact. Patient is engageable, calm and cooperative. Speech: Regular rate, rhythm, volume, coherent Eye contact: Adequate Thought processes: Linear, Goal-directed Thought content: Remains concerned with testing results, otherwise within normal limits, denies current suicidal and homicidal ideation, denies urge to engage in self-injurious behavior Description of abnormal or psychotic thoughts: Patient auditory hallucinations. He reported distressing auditory hallucinations that commanded him to kill himself prior to admission, indicates he sometimes experiences at night, denies X 3 days and denies command element to symptoms, denies experiencing plan or intent to harm self or others Judgment: Fair, some improvement Insight: Fair, some improvement Orientation to time, place and person. Recent and remote memory: Intact. Immediate short-term and long-term memory is: intact. Attention span and concentration: fair. Mood: "I feel good." No indication of depression or anxiety, no lability noted Affect: Full range, congruent with mood DIAGNOSES: Unspecified mood disorder, rule out bipolar disorder, rule out MDD recurrent severe with psychotic features, ADHD reported history ASSESSMENT: Patient has been visible on unit and participating in groups, is engageable, socializes well with roommate and select peers. Patient denies symptoms of anxiety and depression and denies symptoms of homicidal and suicidal ideation. Patient has indicated during previous interactions with this sba underwriter that he has a history of experiencing audio hallucinations at night telling him he is "no good" and that he should kill himself, denies symptoms 3 days, and remains able to agree to alert staff reemerge. Patient indicates current lithium dose is effective, denies need or interest in dose increase, denies medication side effects. Patient denies symptoms of mood lability, impulsivity, and agitation. Patient remains concerned about his physical health , has requested to talk with PA about physical health status. Prior to admission patient had also been taking Seroquel, Lexapro, and Depakote which were discontinued due to hepatotoxicity risks. Will continue to monitor patient' s response to lithium, follow-up lithium level completed. Patient indicates he feels prepared to discharge to home with sister tomorrow; sister has agreed patient may continue to reside with her, today indicates he is more flexible regarding where he will receive outpatient services. dental scheduling coordinator is currently aching arrangements for outpatient follow-up psychotherapy, case management and medication management services. MANAGEMENT PLAN: Continue lithium 300 mg po BID, discontinue Ambien 5 mg by mouth PRN insomnia PA is evaluating patient's physical health status Maintain safety precautions Patient to attend groups and participate in unit programming to develop coping strategies Engage patient in discharge planning process and arrange meeting with support system to ensure discharge planning when appropriate dental scheduling coordinator she meeting scheduled with patient and sister tomorrow at 1:00pm Patient to follow up with PCM and deck supervisor upon discharge TIME SPENT: 35 minutes. Vital Signs Vital Signs Date Time Temp Pulse Resp B/P Pulse Ox O2 Delivery O2 Flow Rate FiO2 05/23/16 18:19 97.7 90 18 100/60 Laboratory Data 24H Labs Laboratory Tests 2 05/23/16 06:52: Blood Urea Nitrogen 23H, Creatinine 0.67L, Sodium Level 144, Potassium Level 4.1 , Chloride Level 107, Carbon Dioxide Level 27, Calcium Level 8.5, Aspartate Amino Transf (AST/SGOT) 32, Alanine Aminotransferase (ALT/SGPT) 209H, Alkaline Phosphatase 174H, Total Bilirubin 0.2, Total Protein 5.8L, Albumin 3.2, Albumin/ Globulin Ratio 1.23, Anion Gap 10, Glomerular Filtration Rate > 60.0 CBC/BMP Laboratory Tests 05/23/16 06:52 Calcium Level 8.5, Aspartate Amino Transf (AST/SGOT) 32, Alanine Aminotransferase (ALT/SGPT) 209 H, Alkaline Phosphatase 174 H, Total Bilirubin 0.2, Total Protein 5.8 L, Albumin 3.2, Red Blood Count 3.04 L, Mean Corpuscular Volume 106.0 H, Mean Corpuscular Hemoglobin 33.9 H, Mean Corpuscular Hemoglobin Concent 32.0, Red Cell Distribution Width 15.4 H Current Medications Current Medications Medications (Trade) Dose Ordered Sig/Nataliya Route PRN Reason Start Time Stop Time Status Last Admin Dose Admin Al Hydrox/Mg Hydrox/Simethicone (Mylanta) 30 ml Q4HP PRN PO HEARTBURN/INDIGESTION 05/13/16 20:30 06/12/16 20:29 05/13/16 21:30 Albuterol Sulfate (Proventil, Ventolin Hfa) 2 puff Q4HP PRN INH SHORTNESS OF BREATH 05/13/16 20:30 06/12/16 20:29 Carbamide Perox/ Anhydrous Glycerin (Debrox) 10 drop BID AU 05/16/16 09:00 05/19/16 21:01 DC 05/19/16 08:56 Clotrimazole (Lotrimin) to rash on feet.and right hand BID TOP 05/16/16 09:00 06/15/16 08:59 05/20/16 08:31 Divalproex Sodium (Depakote Er) 750 mg QHS PO 05/13/16 21:00 05/15/16 15:01 DC 05/14/16 21:14 Docusate Sodium (Colace) 200 mg DAILY PO 05/14/16 09:00 06/13/16 08:59 05/23/16 08:52 Famotidine (Pepcid) 20 mg BID PO 05/16/16 09:00 06/15/16 08:59 05/23/16 08:52 Ferrous Sulfate (Ferrous Sulfate) 325 mg BID PO 05/13/16 21:00 06/12/16 20:59 05/23/16 08:52 Fexofenadine HCl (Enriqueta) 60 mg DAILY PO 05/14/16 09:00 06/13/16 08:59 05/23/16 08:52 Fluocinonide (Lidex 0.05%) 1 dose BID PRN TOP ITCHING 05/13/16 20:30 06/12/16 20:29 Fluticasone Propionate (Flonase 0.05% Nasal [place]) 2 spray DAILY NA 05/15/16 09:00 06/14/16 08:59 05/23/16 08:52 Halobetasol Propionate (Ultravate 0.05%) 1 dose BIDP PRN TOP DERMATITIS 05/13/16 20:30 06/12/16 20:29 Home Med (Med Rec Complete!) ASDIRECTED XX 05/13/16 17:45 05/13/16 17:45 DC Hydroxyzine HCl (Vistaril) 25 mg QHSP PRN PO INSOMNIA 05/17/16 19:45 05/18/16 18:11 DC Ibuprofen (Advil) 200 mg Q8HP PRN PO PAIN 05/15/16 16:30 05/15/16 23:02 DC 05/15/16 18:06 Ibuprofen (Advil) 400 mg Q6HP PRN PO PAIN 05/13/16 20:30 05/15/16 16:11 DC 05/14/16 21:14 Ibuprofen (Advil) 400 mg Q8H PO 05/15/16 22:00 06/14/16 21:59 05/23/16 13:30 [place] Carbonate ([place] Carbonate) 300 mg BID PO 05/19/16 21:00 06/18/16 20:59 05/23/16 08:52 [place] Carbonate ([place] Carbonate) 300 mg QHS PO 05/15/16 21:00 05/19/16 17:38 DC 05/18/16 21:51 Magnesium Hydroxide (Milk Of Magnesia) 30 ml DAILYPRN PRN PO CONSTIPATION 05/13/16 20:30 05/15/16 15:19 DC Menthol/Methyl Salicylate (Bengay Cream) 1 dose BIDP PRN TOP PAIN 05/13/16 20:30 06/12/16 20:29 05/22/16 10:10 Nicotine (Nicoderm Cq 21mg) 1 patch DAILY TD 05/13/16 22:00 06/12/16 21:59 05/20/16 08:31 Nystatin (Mycostatin Powder, Nystop) 1 dose BID TOP 05/16/16 09:00 06/15/16 08:59 05/17/16 21:55 Polyethylene Glycol (Miralax) 1 pkt Q2D PO 05/14/16 09:00 06/13/16 08:59 05/20/16 08:30 Trazodone HCl (Desyrel) 50 mg QHSP PRN PO INSOMNIA 05/13/16 20:30 05/15/16 15:19 DC Venlafaxine HCl (Effexor) 75 mg DAILY PO 05/14/16 09:00 05/15/16 15:19 DC 05/15/16 09:56 Venlafaxine HCl (Effexor) 150 mg DAILY PO 05/16/16 09:00 05/16/16 21:27 DC 05/16/16 09:25 Zolpidem Tartrate (Ambien) 5 mg QHSP PRN PO INSOMNIA 05/18/16 18:15 05/25/16 18:14 05/20/16 22:10 Allergies Coded Allergies: Amitriptyline (Verified Allergy, Mild, Rash, 11/26/14) Thioridazine (Verified Allergy, Mild, EPS, 11/26/14) Risperidone (Verified Adverse Reaction, Unknown, EPS, 05/13/16) Indu Flores May 23, 2016 19:33 Indu Flores May 23, 2016 19:33
[2016-05-24] MEDS: IBUPROFEN 400 MG TAB PO SCH ×2 (06:14→14:50)
[2016-05-24 06:26] VITALS: BP 120/69
[2016-05-24 06:44] LABS: MEAN CORPUSCULAR HEMOGLOBIN 35.4 pg (27.0-33.0); MEAN CORPUSCULAR HGB CONC 33.2 g/dl (32.0-36.5); MEAN CORPUSCULAR VOLUME 106.7 fl (80.0-96.0); RED CELL DISTRIBUTION WIDTH 14.6 % (11.5-14.5); WHITE BLOOD COUNT 9.9 K/mm3 (4.0-10.0)
[2016-05-24] MEDS: MIRALAX *UNIT DOSE* 17GM PACKET PO SCH (08:50)
[2016-05-24] MEDS: CLOTRIMAZOLE 1% TOPICAL CREAM 30GM TOP SCH (08:51)
[2016-05-24] MEDS: NICOTINE 21MG/24HR 1 EA TRANSDERMAL TD SCH (08:51)
[2016-05-24] MEDS: NYSTATIN 100,000 UNITS/GM TOPICAL PWD 15 GM TOP SCH (08:52)
[2016-05-24] MEDS: FLUTICASONE PROP 0.05% NASAL SPRAY 16 GM (FLONASE) SCH (08:54)
[2016-05-24] MEDS: FAMOTIDINE 20 MG TAB PO SCH (08:54)
[2016-05-24] MEDS: DOCUSATE SODIUM 100 MG CAP PO SCH (08:54)
[2016-05-24] MEDS: FERROUS SULFATE 325MG TAB PO SCH (08:54)
[2016-05-24] MEDS: LITHIUM CARBONATE 300 MG CAP PO SCH (08:54)
[2016-05-24] MEDS: FEXOFENADINE 60 MG TAB PO SCH (08:54)
[2016-05-24 09:04] LABS: HEPATITIS E IgG ANTIBODY Negative (Negative)
[2016-05-24] MEDS ORDERED: NICO21PAT TD (11:01)
[2016-05-24] MEDS ORDERED: FLUTISP (11:01)
[2016-05-24] MEDS ORDERED: ALBU17IN INH (11:01)
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
[2016-05-24] MEDS ORDERED: VIST25CA PO (12:51)
[2016-05-24] MEDS ORDERED: LITH300C PO (12:51)
[2016-05-24] MEDS ORDERED: BENCRE EX (13:06)
[2016-05-24] MEDS ORDERED: FLON1SPR (13:11)
== END 2016-05-24 15:23 | disposition home or self-care (01) | DRG 751 ==
LOC: M ED 14:05 → M PSY 18:37
PROVIDERS: ADMIT Psychiatry & Neurology Psychiatry; ATTEND Psychiatry & Neurology Psychiatry
DX: F33.2 Major depressive disorder, recurrent severe without psychotic features (principal); R64 Cachexia; F17.210 Nicotine dependence, cigarettes, uncomplicated; F41.9 Anxiety disorder, unspecified; B35.3 Tinea pedis; D50.9 Iron deficiency anemia, unspecified; Z91.14 Patient's other noncompliance with medication regimen; Z91.19 Patient's noncompliance with other medical treatment and regimen; M54.5 Low back pain; R21 Rash and other nonspecific skin eruption; H61.23 Impacted cerumen, bilateral; K21.9 Gastro-esophageal reflux disease without esophagitis; R94.5 Abnormal results of liver function studies; Z91.5 Personal history of self-harm; M79.1 Myalgia; Z79.899 Other long term (current) drug therapy

== ENCOUNTER → 2016-06-13 | Outpatient (REF) | payer OTHER ==
[~2016-06-13] MED LIST changes: +ALBU17IN INH; +BENCRE EX; +DIVA250T7 PO; +DOCU100C PO; +ENSULIQ2 PO; +FEXO60CA PO; +FLON1SPR; +FLUO-144 TOP; +FLUTISP; +HALO5OI TOP; +LITH300C PO; +MIRA3350 PO; +NICO21PAT TD; +QUET1TAB9 PO; +VIST25CA PO
[2016-06-13 17:37] LABS: BASO % 0.3 % (0.0-1.0); EOS # 0.1 K/mm3 (0.0-0.50); EOS % 0.8 % (0.0-3.0); LARGE UNSTAINED CELL # 0.2 K/mm3 (0.0-0.4); LARGE UNSTAINED CELL % 1.6 % (0.0-4.0); LYMPH # 1.8 K/mm3 (1.5-6.5); LYMPH % 19.7 % (24.0-44.0); MEAN CORPUSCULAR HEMOGLOBIN 34.3 pg (27.0-33.0); MEAN CORPUSCULAR HGB CONC 34.2 g/dl (32.0-36.5); MEAN CORPUSCULAR VOLUME 100.4 fl (80.0-96.0); MONO # 0.4 K/mm3 (0.0-0.8); MONO % 3.9 % (0.0-5.0); NEUTROPHILS # 6.7 K/mm3 (1.8-7.7); NEUTROPHILS % 73.7 % (36.0-66.0); PLATELET COUNT, AUTOMATED 371 k/mm3 (150-450); RED CELL DISTRIBUTION WIDTH 12.7 % (11.5-14.5)
[2016-06-13 17:38] LABS: INR 0.96
[2016-06-13 18:01] LABS: ALBUMIN 4.2 GM/DL (3.2-5.2); ALBUMIN/GLOBULIN RATIO 1.31 (1.00-1.93); ALKALINE PHOSPHATASE 107 U/L (45-117); ALT/SGPT 44 U/L (12-78); ANION GAP 10 MEQ/L (8-16); AST/SGOT 21 U/L (15-37); BILIRUBIN,TOTAL 0.3 MG/DL (0.2-1.0); BLOOD UREA NITROGEN 22 MG/DL (7-18); CALCIUM LEVEL 9.6 MG/DL (8.5-10.1); CARBON DIOXIDE LEVEL 29 MEQ/L (21-32); CHLORIDE LEVEL 101 MEQ/L (98-107); FREE T4 0.69 NG/DL (0.76-1.46); GLOMERULAR FILTRATION RATE > 60.0 (>60); GLUCOSE, FASTING 80 MG/DL (70-105); PERCENT SATURATION 20.1 % (19.7-37.4); POTASSIUM SERUM 4.2 MEQ/L (3.5-5.1); SODIUM LEVEL 140 MEQ/L (136-145); TOTAL IRON BINDING CAPACITY 423 UG/DL (250-450); TOTAL PROTEIN 7.4 GM/DL (6.4-8.2)
[2016-06-13 18:18] LABS: LITHIUM LEVEL 0.64 MEQ/L (0.60-1.20)
== END ==
LOC: M SFHCPLAZ 14:58
PROVIDERS: ATTEND Physician Assistant Medical
DX: F31.32 Bipolar disorder, current episode depressed, moderate (principal); D50.9 Iron deficiency anemia, unspecified; K59.01 Slow transit constipation; R94.5 Abnormal results of liver function studies

== ENCOUNTER → 2016-06-15 | Outpatient (CLI) | payer OTHER ==
[~2016-06-15] MED LIST changes: +ACETAMINOPHEN 325 MG TAB As Ordered ONE; +LIDOCAINE 1% MDV 20ML VIAL As Ordered ONE; +SERT25TA PO; -SERT25TA85 PO
--- NOTE | 2016-06-15 18:28 | REP ---
ULTRASOUND GUIDED LIVER BIOPSY: The procedure was performed under the direct supervision of Dr. Kahn. The risks and benefits of the procedure were explained to the patient and informed consent was obtained. The left lobe of the liver was localized using ultrasound guidance. The skin was prepped and draped in a sterile fashion. 1% Xylocaine was used as a local anesthetic. Using ultrasound guidance a 19/20-gauge coaxial needle biopsy system was inserted and advanced into the liver. 9 passes yielding 7 core biopsy samples were obtained. The patient tolerated the procedure well and there were no immediate complications. After the appropriate amount of monitored convalescence the patient was discharged from the department. Reviewed by JUANITA Buenrostro 06/16/2016 04:03 PEdited and Signed by Ryan Kahn MD 06/16/2016 05:02 P
== END ==
LOC: M RADPRO 08:48
PROVIDERS: ATTEND Internal Medicine
DX: R94.5 Abnormal results of liver function studies (principal); R63.4 Abnormal weight loss; R19.4 Change in bowel habit; Z14.8 Genetic carrier of other disease; Z88.8 Allergy status to other drugs, medicaments and biological substances; J45.909 Unspecified asthma, uncomplicated; F20.9 Schizophrenia, unspecified; F31.9 Bipolar disorder, unspecified; F90.9 Attention-deficit hyperactivity disorder, unspecified type; Z87.891 Personal history of nicotine dependence

== ENCOUNTER 2016-07-14 11:42 | Inpatient (IN) | payer OTHER ==
[~2016-07-14] VITALS: Ht 185.4 cm; Wt 89.5 kg
[~2016-07-14 11:42] MED LIST changes: -ACETAMINOPHEN 325 MG TAB As Ordered ONE; -LIDOCAINE 1% MDV 20ML VIAL As Ordered ONE
[2016-07-14] MEDS ORDERED: HYDR1CAP25 PO (14:42)
[2016-07-14] MEDS ORDERED: BENCRE EXT (14:42)
[2016-07-14] MEDS ORDERED: FEXO60CA PO (14:42)
[2016-07-14] MEDS ORDERED: ACET50TAOT PO (14:42)
[2016-07-14] MEDS ORDERED: ENSULIQ2 PO (14:42)
[2016-07-14] MEDS ORDERED: FERR325T PO (14:42)
[2016-07-14] MEDS ORDERED: ENEMENE3 PR (14:42)
[2016-07-14] MEDS ORDERED: ADV100INH INH (14:42)
[2016-07-14] MEDS ORDERED: COLA100C3 PO (14:42)
[2016-07-14] MEDS ORDERED: ALBU17IN INH (14:42)
[2016-07-14] MEDS ORDERED: RANI150T PO (14:42)
[2016-07-14] MEDS ORDERED: MIRA33504 PO (14:42)
[2016-07-14] MEDS ORDERED: TRAZ10TA PO (14:42)
[2016-07-14] MEDS ORDERED: LITH300T2 PO (14:42)
[2016-07-14] MEDS ORDERED: FLON1SPR (14:42)
[2016-07-14] MEDS ORDERED: OMEP20TA PO (14:47)
[2016-07-14] MEDS ORDERED: MOM 30ML SUSPENSION UDC PO PRN (19:45)
[2016-07-14] MEDS ORDERED: MAALOX 30 ML SUSP *UDC PO PRN (19:45)
[2016-07-14] MEDS ORDERED: ALBUTEROL 90 MCG/ACT 8GM HFA INHALER INH PRN (19:45)
[2016-07-14] MEDS ORDERED: traZODone 50 MG TAB PO PRN (19:45)
[2016-07-14] MEDS ORDERED: ANALGESIC BALM CRM 120 GM TOP PRN (19:45)
[2016-07-14] MEDS ORDERED: hydrOXYzine 25 MG TAB PO PRN (19:45)
[2016-07-14] MEDS: FERROUS SULFATE 325MG TAB PO SCH (21:09)
[2016-07-14] MEDS: FAMOTIDINE 20 MG TAB PO SCH (21:09)
[2016-07-14] MEDS: ACETAMINOPHEN TAB 650MG DOSE (2X325MG) PO PRN (21:09)
[2016-07-14] MEDS: LITHIUM CARBONATE 300 MG CAP PO SCH (21:09)
[2016-07-15] MEDS: ACETAMINOPHEN TAB 650MG DOSE (2X325MG) PO PRN ×3 (04:28→17:51)
[2016-07-15] MEDS: LITHIUM CARBONATE 300 MG CAP PO SCH ×2 (08:07→21:42)
[2016-07-15] MEDS: FAMOTIDINE 20 MG TAB PO SCH ×2 (08:07→21:42)
[2016-07-15] MEDS: FERROUS SULFATE 325MG TAB PO SCH ×2 (08:07→21:42)
[2016-07-15] MEDS: FEXOFENADINE 60 MG TAB PO SCH (08:07)
[2016-07-15] MEDS: DOCUSATE SODIUM 100 MG CAP PO SCH (08:07)
[2016-07-15] MEDS: NICOTINE 14 MG/24 HR TRANSDERMAL TD SCH (08:08)
[2016-07-15] MEDS: FLUTICASONE PROP 0.05% NASAL SPRAY 16 GM (FLONASE) SCH (08:08)
--- NOTE | 2016-07-15 11:37 | HPEPDOC ---
Medical History and Physical Date of Admission Jul 14, 2016 at 17:13 History and Physical PCP: Sabra HOBSON ATTENDING: Dr. Srinivas Bauer HPI: 25[facility]M [facility]iz[facility]ive [facility], being medically examined today. No acute medical complaints today. Denies any fevers, chills, weakness, fatigue, LUNDBERG, CP, SOB, cough, palpitations, abdominal pain, N/V/D or changes in bowel or bladder habits. PMHx: Asthma Bipolar disorder ADD Intermittent explosive disorder Chronic hyperextension of the knees Iron deficiency Chronic constipation Chronic back pain Lumbar spine x-ray and/17 and unremarkable. Chronic knee pain Chronic poor dentition Insomnia allergic rhinitis GERD Tobacco use History of elevated LFTs, following with gastroenterology in [place] Dr Edwards. Liver biopsy completed 06/15/16 [facility]. Patient to go for second opinion at [facility], appointment pending per patient. PSHX: Colonoscopy. Dr Edwards 11/30 Tonsillectomy/adenoidectomy Tympanostomy tubes Bilateral myringotomy SOCHX: Resides in: [facility] Marital Status: Single Kids: None Employment: Unemployed Tobacco use: One pack per day ETOH: Denies Illicit Drugs: Denies IV Drug Use: Denies Tattoos done unprofessionally: Denies FAMHX: Mother: Alive, COPD, CHF. Father: Alive, COPD Siblings: One brother Alive, well Children: None Unexpected deaths due to medical reasons: None. ROS: As noted in HPI, otherwise 11pt ROS of systems reviewed and remarkable only for ongoing workup of elevated LFTs. Patient states Dr. Edwards is referring the patient to [facility] for a second opinion following his recent liver biopsy. Patient states his appointment was next week. The patient states he has been eating and drinking. He reports no nausea, vomiting, diarrhea, and states his constipation has been controlled with his bowel regimen. He states he is having some teeth pain and his teeth have been achy and tender recently radiating to his upper and lower jaw. His back has also been achy and he is requesting BenGay cream. He also applies this on his knees which helps with knee pain. He states this helps him with his pain. PE: GEN: 25 yo M, appears stated age. Thin appearing. No acute distress. Alert and oriented x 3. Pleasant, interactive. HEENT: Normocephalic, atraumatic. Pupils are equal, round, and reactive to light. Extraocular movements are intact. No nystagmus appreciated. Sclera are nonicteric. Conjunctiva without injection. Nose midline. Nasal turbinates without bogginess. EACs both patent BL. TMs both visualized and cordero with good cone of light, no bulging or erythema. No facial asymmetry. Moist mucous membranes. Dentition poor. There is some mild erythema noted around the lower posterior molars. Multiple dental caries are noted. Pharynx pink and moist, no cobblestoning. Neck supple, trachea midline. No lymphadenopathy or thyromegaly appreciated. CHEST: Regular rate and rhythm, +S1, +S2 LUNGS: Clear to auscultation bilaterally. No wheezes, rales, or rhonchi. Breathing appears symmetric and easy. Patient is speaking in full sentences. No accessory muscle use. ABD: Round, soft, non-tender, non-distended. +Bowel sounds throughout. No rebound or guarding. No costovertebral angle tenderness. EXT: Pulses 2+ bilaterally dorsalis pedis and radial. No lower extremity edema appreciated. SKIN: [place], dry, warm. Capillary refill <2sec. No rashes. NEURO: Alert and oriented x 3. Cranial nerves III-XII are intact. No focal deficits appreciated. EKG: Pending. Liver biopsy 06/15/16 Liver, core biopsies: Fragments of benign liver parenchyma with focal mild lymphocytic infiltrates and mild iron deposition (1+ on iron stain). No increased fibrosis are demonstrated on trichrome stain. A&P: 25yoM [facility] for schizoaffective disorder 1. Psych. Plan per Psychiatry. Obtain baseline EKG to assure the safety of psychiatric medications as they can prolong the QT interval. 2. Nicotine dependence. Patch available. 3. Asthma. Continue Advair 100/50 one puff twice a day. Continue albuterol 2 puffs every 4 hours as needed. 4. Follow up with PCP on discharge. 5. Chronic constipation. Continue bowel care as per outpatient regimen. 6. Elevated TSH. Recheck TFT in a.m. 7. Anemia. Continue iron supplement 325 mg by mouth twice a day. Hemoglobin trend is improved from last admission. 8. Allergic rhinitis. Continue fexofenadine 60 mg daily and Flonase 2 sprays each nostril daily. 9. GERD. Continue Prilosec 20 mg daily and ranitidine 150 mg by mouth twice a day. 10. Chronic back pain/knee pain. Apply BenGay cream TID as needed. 11. History of elevated LFTs. Pt is following with Dr Edwards in [place]. Have requested a copy of his last note for review. The patient states he is being referred to [facility] for a second opinion and that his appointment is next week. We'll try to confirm this and determine where his appointment is and with whom so that if this needs to be rescheduled we can confirm the appointment at discharge. LFTs are currently within normal limits. 12. Poor dentition/dental infection. Add Augmentin 875 mg by mouth twice a day. Tylenol as needed. Chlorhexidine SS TID. Arrange dental care at discharge. 13. Poor nutrition. Patient with history of poor nutrition and uses ensure 3 times a day. Will continue. 14. Fernando staff member was present throughout exam Vital Signs Vital Signs Label Value Date Time Patient Temperature 98.5 degrees F 07/14/16 180 Temperature Source Temporal 07/14/16 1802 Pulse 76 07/14/16 1802 Respiratory Rate 16 bpm 07/14/16 1802 Blood Pressure Assessment 102/64 (77) 07/14/16 1802 Source Automatic Cuff (NIBP) Bedside Pulse Oximetry 99 % 07/14/16 1802 Laboratory Data Labs 24H Laboratory Tests 2 07/14/16 13:21: Acetaminophen Level < 2.0L, Aspartate Amino Transf (AST/SGOT) 18, Alanine Aminotransferase (ALT/SGPT) 32, Alkaline Phosphatase 88, Total Bilirubin 0.4, Direct Bilirubin < 0.1, Albumin 4.0, Albumin/Globulin Ratio 1.33, Anion Gap 6L, Calcium Level 8.9, Ethyl Alcohol Level < 0.003, Glomerular Filtration Rate > 60.0, Hasty Level 0.74, Salicylates Level < 1.7L, Thyroid Stimulating Hormone (TSH) 4.470H, Total Protein 7.0, Urine Amphetamines Screen NEGATIVE, Urine Benzodiazepines Screen NEGATIVE, Urine Opiates Screen NEGATIVE, Urine Barbiturates Screen NEGATIVE, Urine Cannabinoids Screen NEGATIVE, Urine Cocaine Metabolite Screen NEGATIVE, Urine Methadone Screen NEGATIVE, Urine Phencyclidine Screen NEGATIVE CBC/BMP Laboratory Tests 07/14/16 13:21 Red Blood Count 3.77 L, Mean Corpuscular Volume 100.3 H, Mean Corpuscular Hemoglobin 33.4 H, Mean Corpuscular Hemoglobin Concent 33.3, Red Cell Distribution Width 12.6 Home Medications Scheduled (Ensure) 1 Liq Liq 3 LIQ PO TID (Flonase Allergy Relief) 50 Mcg/Act Spr 2 SPRAYS NA DAILY Docusate Sodium (Colace) 100 Mg Cap 200 MG PO DAILY Ferrous Sulfate (Ferrous Sulfate) 325 Mg Tab 325 MG PO BID Fexofenadine HCl (Fexofenadine HCl) 60 Mg Tab 60 MG PO DAILY Hydroxyzine Pamoate (Hydroxyzine Pamoate) 25 Mg Cap 25 MG PO Q8H Hasty Carbonate (Hasty Carbonate) 300 Mg Tab 300 MG PO BID Omeprazole (Omeprazole) 20 Mg Tab 20 MG PO DAILY Polyethylene Glycol (Miralax) 1 Pow Pow 17 GM PO DAILY Ranitidine HCl (Ranitidine HCl) 150 Mg Tab 1 TAB PO BID Salmeterol/Fluticasone (Advair Diskus 100-50 Mcg/Dose) 28 Puff/Inhaler Aerp 1 PUFF INH BID PT STATES HAS NOT USED IN A WEEK Trazodone HCl (Trazodone HCl) 100 Mg Tab 100 MG PO QHS Scheduled PRN (Bengay Greaseless 10-15 %) 1 Cre Cre 1 CRE EXT DAILY PRN PRN PAIN APPLIES TO KNEES, AND BACK Acetaminophen (Acetaminophen) 500 Mg Tab 500 MG PO PRN HEADACHE Albuterol Sulfate (Ventolin Hfa) 200 Puff/8 Gm Aers 2 PUFF INH QID PRN PRN SHORTNESS OF BREATH Sodium Phosphate/Biphosphate (Enema 7-19 gm/118Ml) 1 Mamie Mamie 1 MAMIE [place] 2XW PRN PRN CONSTIPATION Allergies Coded Allergies: Amitriptyline (Verified Allergy, Mild, Rash, 11/26/14) Thioridazine (Verified Allergy, Mild, EPS, 11/26/14) Haloperidol (Verified Allergy, Unknown, 07/14/16) Loxapine (Verified Allergy, Unknown, 07/14/16) Mirtazapine (Verified Allergy, Unknown, 07/14/16) Risperidone (Verified Adverse Reaction, Unknown, EPS, 05/13/16) Brandy Davis Jul 15, 2016 11:37
[2016-07-15] MEDS: ANALGESIC BALM CRM 120 GM TOP SCH ×3 (11:50→21:42)
[2016-07-15] MEDS: AUGMENTIN 875 MG TAB PO SCH ×2 (12:05→21:42)
[2016-07-15] MEDS: CHLORHEXIDINE GLUCONATE 0.12 % 15ML UDC (PERIDEX ORAL RINSE) SSP SCH ×3 (12:07→21:42)
[2016-07-15] MEDS: ADVAIR DISKUS 100/50 INH PWD INH SCH ×2 (12:07→21:42)
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
[2016-07-15] MEDS ORDERED: PROPRANOLOL 10 MG TAB PO ONE (15:00)
[2016-07-15 18:00] VITALS: BP 121/60
[2016-07-15] MEDS: traZODone 100 MG TAB PO PRN (23:36)
[2016-07-16] MEDS: ACETAMINOPHEN TAB 650MG DOSE (2X325MG) PO PRN ×3 (06:13→15:54)
[2016-07-16 06:26] VITALS: BP 99/56
[2016-07-16] MEDS: MIRALAX *UNIT DOSE* 17GM PACKET PO SCH (09:00)
[2016-07-16] MEDS: ANALGESIC BALM CRM 120 GM TOP SCH ×4 (09:00→22:13)
[2016-07-16] MEDS: FLUTICASONE PROP 0.05% NASAL SPRAY 16 GM (FLONASE) SCH (09:07)
[2016-07-16] MEDS: DOCUSATE SODIUM 100 MG CAP PO SCH (09:07)
[2016-07-16] MEDS: LITHIUM CARBONATE 300 MG CAP PO SCH ×2 (09:07→22:12)
[2016-07-16] MEDS: AUGMENTIN 875 MG TAB PO SCH ×2 (09:07→22:13)
[2016-07-16] MEDS: ADVAIR DISKUS 100/50 INH PWD INH SCH ×2 (09:08→22:12)
[2016-07-16] MEDS: FAMOTIDINE 20 MG TAB PO SCH ×2 (09:08→22:13)
[2016-07-16] MEDS: FERROUS SULFATE 325MG TAB PO SCH ×2 (09:08→22:13)
[2016-07-16] MEDS: FEXOFENADINE 60 MG TAB PO SCH (09:08)
[2016-07-16] MEDS: NICOTINE 14 MG/24 HR TRANSDERMAL TD SCH (09:09)
[2016-07-16] MEDS: CHLORHEXIDINE GLUCONATE 0.12 % 15ML UDC (PERIDEX ORAL RINSE) SSP SCH ×3 (09:09→22:12)
--- NOTE | 2016-07-16 17:33 | IPN ---
DATE: 07/16/2016 SUBJECTIVE: The patient is a 25-year-old man with extensive history of psychiatric problems, admitted due to presenting with worsening depression and suicidal ideation with plan. Today is his third day of inpatient hospitalization and he currently is prescribed lithium carbonate 300 mg orally twice daily. The blood level of lithium on 07/14/2016, was 0.74. He is seen and his treatment reviewed. He states today that he is still feeling very depressed and having fleeting suicidal thoughts; however, no specific plan advanced. He has had multiple psychiatric admissions and severally diagnosed with disorders that include schizoaffective, bipolar, depression, anxiety, and personality-related disturbances, as well as posttraumatic stress disorder (PTSD). On a scale of zero to 10, he describes his current depressive state as seven, which is significant. OBSERVATION: The patient is of slight, tall build and average height. His vital signs are stable. His mood is dysphoric. He endorses auditory hallucinations, mainly voices telling him to hurt himself; however, he indicates that he has decided not to pay any heed to such commands. He is alert and adequately oriented to time, place and person. He continues to endorse vague suicidal ideation, with no specific plans. ASSESSMENT: 25-year-old with history of mood-related disturbances, continues to experience notable symptoms, mainly depression and suicidal ideation. He currently is on lithium; however, it is unlikely that lithium will be effective in decreasing his depressive symptomatology. His past history and presentation suggests possible bipolar depression. A trial of an antipsychotic such as Latuda, proven to be effective, in bipolar depression, is warranted at this time. PLAN: I will start Latuda 20 mg orally at bedtime, to be continued in combination with lithium carbonate 300 mg twice a day. Medication addition is discussed with the patient, with risks and benefits discussed, and he demonstrates understanding and is in agreement with the trial of Latuda. Ongoing assessment and supportive therapy. [facility]
[2016-07-16] MEDS: LURASIDONE 20 MG TAB (LATUDA) PO SCH (17:43)
[2016-07-16 18:00] VITALS: BP 98/49
[2016-07-17] MEDS: traZODone 100 MG TAB PO PRN ×2 (00:09→23:01)
[2016-07-17 06:32] VITALS: BP 113/58
[2016-07-17] MEDS: CHLORHEXIDINE GLUCONATE 0.12 % 15ML UDC (PERIDEX ORAL RINSE) SSP SCH ×3 (08:22→20:57)
[2016-07-17] MEDS: ADVAIR DISKUS 100/50 INH PWD INH SCH ×2 (08:23→20:57)
[2016-07-17] MEDS: FLUTICASONE PROP 0.05% NASAL SPRAY 16 GM (FLONASE) SCH (08:23)
[2016-07-17] MEDS: DOCUSATE SODIUM 100 MG CAP PO SCH (08:24)
[2016-07-17] MEDS: LITHIUM CARBONATE 300 MG CAP PO SCH ×2 (08:24→20:57)
[2016-07-17] MEDS: AUGMENTIN 875 MG TAB PO SCH ×2 (08:25→20:57)
[2016-07-17] MEDS: FAMOTIDINE 20 MG TAB PO SCH ×2 (08:25→20:57)
[2016-07-17] MEDS: FERROUS SULFATE 325MG TAB PO SCH ×2 (08:25→20:57)
[2016-07-17] MEDS: FEXOFENADINE 60 MG TAB PO SCH (08:25)
[2016-07-17] MEDS: NICOTINE 14 MG/24 HR TRANSDERMAL TD SCH (08:25)
[2016-07-17] MEDS: ANALGESIC BALM CRM 120 GM TOP SCH ×3 (08:27→20:57)
--- NOTE | 2016-07-17 11:18 | ECGEPIP ---
Stationary ECG Study [facility] Test Date: 2016-07-16 Pat Name: NAZARIO BOLTON Department: Room: [place] [address] Gender: M Senior Systems Developer: EMELIA : 1990 Requested By: Brandy Davis Order Number: [id number] Reading MD: Dejan Titus Measurements Intervals Mcgrann Rate: 89 P: 53 MA: 132 QRS: 59 QRSD: 106 T: 46 QT: 369 QTc: 449 Interpretive Statements Normal sinus rhythm Normal EKG No change since prior tracing of 08/13/2013 Electronically Signed On 07-17-2016 11:17:53 EDT by Dejan Titus
[2016-07-17] MEDS: ACETAMINOPHEN TAB 650MG DOSE (2X325MG) PO PRN ×2 (15:13→21:19)
[2016-07-17] MEDS: LURASIDONE 20 MG TAB (LATUDA) PO SCH (17:40)
[2016-07-17 18:00] VITALS: BP 118/58
--- NOTE | 2016-07-17 20:49 | IPN ---
DATE: 07/17/2016 SUBJECTIVE: The patient is seen on his fourth day of inpatient psychiatric hospitalization and his treatment is reviewed. He presently is being prescribed lithium carbonate 300 mg orally twice daily, and Latuda 20 mg orally daily was started the day prior. He tolerated the first dose and reported no adverse event. "I am doing a little better, still hoping to get my lithium up because it is not working." He still reports "angry mood" and says he "hears voices'; however, he is unable to elaborate on nature of said 'voices", although states says simply that "I let it slide." No major incidents involving the patient in the past 24 hours. OBSERVATION: Vital signs stable. He is calm, cooperative, appropriately groomed. Mood is slightly depressed. No overt psychotic features. He denies suicidal or homicidal ideation. ASSESSMENT: He currently remains symptomatic and will require further inpatient hospitalization for ongoing medication adjustment and symptom stabilization. PLAN: Latuda and lithium will be continued, with ongoing reviews and dosage adjustment as may be clinically indicated. MTDD
[2016-07-18 06:44] VITALS: BP 117/58
[2016-07-18] MEDS: MIRALAX *UNIT DOSE* 17GM PACKET PO SCH (08:14)
[2016-07-18] MEDS: DOCUSATE SODIUM 100 MG CAP PO SCH (08:17)
[2016-07-18] MEDS: ANALGESIC BALM CRM 120 GM TOP SCH ×3 (08:17→21:51)
[2016-07-18] MEDS: ADVAIR DISKUS 100/50 INH PWD INH SCH ×2 (08:17→21:51)
[2016-07-18] MEDS: FLUTICASONE PROP 0.05% NASAL SPRAY 16 GM (FLONASE) SCH (08:17)
[2016-07-18] MEDS: CHLORHEXIDINE GLUCONATE 0.12 % 15ML UDC (PERIDEX ORAL RINSE) SSP SCH ×3 (08:17→21:51)
[2016-07-18] MEDS: LITHIUM CARBONATE 300 MG CAP PO SCH ×2 (08:18→21:50)
[2016-07-18] MEDS: NICOTINE 14 MG/24 HR TRANSDERMAL TD SCH (08:18)
[2016-07-18] MEDS: FEXOFENADINE 60 MG TAB PO SCH (08:19)
[2016-07-18] MEDS: AUGMENTIN 875 MG TAB PO SCH ×2 (08:19→21:50)
[2016-07-18] MEDS: FAMOTIDINE 20 MG TAB PO SCH ×2 (08:19→21:50)
[2016-07-18] MEDS: FERROUS SULFATE 325MG TAB PO SCH ×2 (08:19→21:50)
--- NOTE | 2016-07-18 11:14 | IPNPDOC ---
Subjective Date Seen The patient was seen on 07/18/16. Subjective Chief Complaint/HPI The patient is a 25-year-old male admitted with a reason for visit of Schizoaffective D/O. Events since last encounter Patient is complaining of knee pain. There is no pain in the lower extremities, no pain in calves. He is currently wearing his knee braces prescribed by his primary care provider. He is also reporting neck pain. There is no radiation of pain down his arms. No weakness, numbness, or tingling in upper extremities. He has noticed some edema around the ankles. He also has chronic low back pain which she states is persistent. He states his pain is achy pain. ENT: Denies: Dysphagia, Ear Pain, Head Aches Pulmonary: Denies: Cough, Dyspnea Cardiovascular: Denies: Chest Pain, Lt Headedness, Orthopnea, Palpitations, Paroxysmal Noc. Dyspnea Gastrointestinal: Denies: Abdominal Pain, Constipation, Diarrhea, Nausea, Vomiting Genitourinary: Denies: Dysuria, Frequency, Incontinence, Retention Objective Physical Examination General Exam: Positive: Alert Eye Exam: Positive: PERRLA ENT Exam: Positive: Atraumatic Chest Exam: Positive: Clear to auscultation, Normal air movement Heart Exam: Positive: Normal S1, Normal S2, Rate Normal, Regular Rhythm, Negative: Murmurs, Rubs Extremity Exam: Positive: Edema (trace edema is noted at the ankles bilaterally. No erythema. No calf tenderness. No warmth.), Normal pulses, Negative: Clubbing, Cyanosis Neuro Exam: Positive: Normal Gait, Other (he is wearing bilateral knee braces.) Assessment /Plan Problems (1) Neck pain Status: Chronic Problem Text: * Check x-ray of cervical spine * Continue to apply BenGay cream as needed * Tylenol as needed * Request pain management opinion (2) Knee pain Status: Chronic Problem Text: * Continue with a braces as per PCP * Apply BenGay cream as needed * Tylenol as needed * Check x-ray of knees bilaterally * Pain management opinion (3) Hypothyroid Status: Chronic Problem Text: * Add Synthroid 25 g daily * Follow up with PCP in 4-6 weeks (4) Chronic bilateral low back pain Status: Chronic Problem Text: * X-ray of lumbosacral spine 05/16/16 with no bony abnormality noted. * Continue with BenGay cream as needed * Tylenol as needed * Request pain management opinion Plan/VTE VTE Prophylaxis Ordered?: No (ambulatory) VS, I&O, 24H, Fishbone Vital Signs/I&O Vital Signs Date Time Temp Pulse Resp B/P Pulse Ox O2 Delivery O2 Flow Rate FiO2 07/18/16 06:44 99.1 101 16 117/58 07/14/16 18:02 99 Brandy Davis Jul 18, 2016 11:14
[2016-07-18] MEDS: LEVOTHYROXINE 0.025 MG TAB (25 MCG) PO SCH (11:42)
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
--- NOTE | 2016-07-18 15:02 | REP ---
BILATERAL KNEES: Five views of bilateral knees performed. There is no acute fracture, dislocation or intrinsic bone disease. The joint spaces appear normal. I do not see a significant joint effusion bilaterally. IMPRESSION: Negative bilateral knee series. Signed by Octavio Cardona MD 07/18/2016 03:57 P
--- NOTE | 2016-07-18 15:26 | REP ---
CERVICAL SPINE SERIES: Full cervical spine series performed with seven total views obtained. There is no compression fracture or malalignment. There is no prevertebral soft tissue swelling. There is no significant arthritic changes identified. I do not see radiographic evidence of significant neural foraminal narrowing. There is mild curvature convex to the right. IMPRESSION: Mild curvature convex to the right could indicate some degree of muscle spasm. Otherwise unremarkable cervical spine series. Signed by Octavio Cardona MD 07/18/2016 03:57 P
[2016-07-18] MEDS: LURASIDONE 20 MG TAB (LATUDA) PO SCH (17:53)
[2016-07-18 18:00] VITALS: BP 110/60
[2016-07-18] MEDS ORDERED: ANALGESIC BALM CRM 120 GM TOP SCH (21:00)
[2016-07-18] MEDS: traZODone 100 MG TAB PO PRN (23:01)
[2016-07-19 06:17] VITALS: BP 133/47
[2016-07-19] MEDS: LEVOTHYROXINE 0.025 MG TAB (25 MCG) PO SCH (06:18)
[2016-07-19] MEDS: ADVAIR DISKUS 100/50 INH PWD INH SCH ×2 (08:14→20:06)
[2016-07-19] MEDS: CHLORHEXIDINE GLUCONATE 0.12 % 15ML UDC (PERIDEX ORAL RINSE) SSP SCH ×3 (08:14→20:07)
[2016-07-19] MEDS: FLUTICASONE PROP 0.05% NASAL SPRAY 16 GM (FLONASE) SCH (08:14)
[2016-07-19] MEDS: FAMOTIDINE 20 MG TAB PO SCH ×2 (08:15→20:06)
[2016-07-19] MEDS: FERROUS SULFATE 325MG TAB PO SCH ×2 (08:15→20:06)
[2016-07-19] MEDS: ANALGESIC BALM CRM 120 GM TOP SCH ×3 (08:15→20:07)
[2016-07-19] MEDS: NICOTINE 14 MG/24 HR TRANSDERMAL TD SCH (08:15)
[2016-07-19] MEDS: LITHIUM CARBONATE 300 MG CAP PO SCH ×2 (08:15→20:06)
[2016-07-19] MEDS: FEXOFENADINE 60 MG TAB PO SCH (08:16)
[2016-07-19] MEDS: DOCUSATE SODIUM 100 MG CAP PO SCH (08:16)
[2016-07-19] MEDS: AUGMENTIN 875 MG TAB PO SCH ×2 (08:16→20:06)
--- NOTE | 2016-07-19 14:30 | IPNPDOC ---
[facility] Progress Note Progress Note DATE OF SERVICE: 07/19/16 HISTORY: Stenotype Operator met with patient today to assess treatment progress on inpatient unit. Patient reports 5/10 anxiety, 7/10 depression, denies current suicidal or homicidal ideation, indicates he is experiencing "voices telling me that I'm worthless," denies visual hallucinations, denies urge to engage in self injurious behavior. Patient continues take lithium and notes medication is helpful, denies medication side effects. Patient today makes request for change from Latuda to Invega, states he wants to transition to injectable form of medication. Patient was informed change not recommended due to patient's history of adverse reaction to Risperdal. Patient is agreeable to continuing Latuda trial, denies medication side effects. Patient indicates sleep is improved with trazodone, notes he wakes up one time during night, is able to resume sleep. Patient indicates he is "overeating," attributes to not having enough while in previous home. Patient states to headline writer today that he does not wish to discharge back to previous living arrangement stating, "I'd rather go to a hotel, there is no way I am going back there." Patient is aware quality improvement coordinator (rn) is attempting to work with DSS worker on discharge plan, referral being made to TLS, patient is agreeable with following up outpatient treatment at [facility]. Patient is attending groups and is able to maintain behavioral control. Patient presents with no signs of acute distress at time of interaction. VITAL SIGNS: See below. Tachycardic, will review with PA. NEW TEST RESULTS: No new results. Patient has history of asthma, chronic hyperextension of knees, iron deficiency, chronic constipation, chronic back pain, chronic knee pain, chronic poor dentition, GERD, history of elevated LFTs , following with gastroenterology in [place]. Liver biopsy completed 06/15/16 as some see. Patient to go for second opinion [facility], appointment pending per patient. Labs on admission indicated low anion gap, RBC, Hgb, HCT and elevated glucose, MCV, MCH, TSH, also elevated on recheck, PA is monitoring 07/14/16 lithium level 0.74 UDS negative on admission 07/18/16 cervical spine x-ray - Mild curvature convex to the right could indicate some degree of muscle spasm. Otherwise unremarkable cervical spine series. 07/18/16 knee x-ray - Negative bilateral knee series CURRENT MEDICATIONS: See below. MENTAL STATUS EXAMINATION: General: Well dressed with good hygiene, makes limited eye contact, dressed in hospital clothing, adequate personal hygiene, ambulates with steady gait, appears stated age Speech: Spontaneous and fluid Thought processes: Linear and logical Thought content: Focused on getting paliperidone Abstract reasoning: Intact Description of associations: Intact Description of abnormal or psychotic thoughts: Makes no threats against himself or others, does not appear to be responding to internal stimuli. Indicates he is hearing intermittent voices stating, "I'm worthless," denies visual hallucinations denies urge to engage in self-injurious behavior, denies bizarre or paranoid ideation. Judgment: Limited Insight: Orientation: Alert and orientated 3 Recent and remote memory: Intact Attention span and concentration: Intact Fund of knowledge: Adequate Mood: "I'm okay, but I'd really like to be on an injectable medication." Patient presents as mildly depressed, no anxiety noted, no mood lability noted Affect: Blunted DIAGNOSES: Unspecified mood disorder, rule out bipolar disorder, rule out MDD recurrent severe with psychotic features, rule out PTSD, rule out personality disorder, ADHD reported history, ASSESSMENT: 25-year-old man who was admitted to the inpatient psychiatric unit he has a history of trauma and poor family relational systems, notes he does not intend to return to prior living arrangement with [facility] payee. Patient has notable history of psychotropic medication trials with poor effect. Patient denies suicidal and homicidal ideation is able to verbalize awareness of how to access supportive services on unit if needed. Patient indicates lithium is currently effective, is requesting change from Latuda to Invega, has been informed is contraindicated with history of adverse response to Risperdal, is agreeable to continuing Latuda trial. Will continue to monitor patient's response to medications and titrate as tolerated, monitor for side effects, and will evaluate patient safety, resolution of suicidal thinking, and discharge readiness. medical coordinator pesticide use is attempting to work with DSS worker on discharge plan, referral being made to TLS, patient is agreeable with following up outpatient treatment at [facility]. MANAGEMENT PLAN: Continue lithium 300 mg po BID, Latuda 20 mg po at 18:00, trazodone 200 mg po hs PRN insomnia, and hydroxyzine 25 mg po hs PRN insomnia Maintain safety precautions Patient to attend groups and participate in unit programming to develop coping strategies Engage patient in discharge planning process and arrange meeting with support system to ensure safe discharge planning when appropriate Patient to follow up with PCM upon discharge TIME SPENT: 35 minutes. Vital Signs Vital Signs Date Time Temp Pulse Resp B/P Pulse Ox O2 Delivery O2 Flow Rate FiO2 07/19/16 06:17 98.1 118 20 133/47 Room Air 07/14/16 18:02 99 Current Medications Current Medications Acetaminophen (Tylenol Tab) 650 mg Q6HP PRN PO HEADACHE or DISCOMFORT Last administered on 07/17/16 21:19; Start 07/14/16 at 19:45; Stop 08/13/16 at 19:44 Al Hydrox/Mg Hydrox/Simethicone (Mylanta) 30 ml Q4HP PRN PO HEARTBURN/ INDIGESTION; Start 07/14/16 at 19:45; Stop 08/13/16 at 19:44 Albuterol Sulfate (Proventil, Ventolin Hfa) 2 puff Q4HP PRN INH SHORTNESS OF BREATH; Start 07/14/16 at 19:45; Stop 08/13/16 at 19:44 Amoxicillin/ Clavulanate Potassium (Augmentin) 875 mg BID PO Last administered on 07/19/16 08:16; Start 07/15/16 at 09:00; Stop 07/22/16 at 08:59 Chlorhexidine Gluconate (Peridex Oral Rinse) 15 ml TID SSP Last administered on 07/19/16 08:14; Start 07/15/16 at 09:00; Stop 08/14/16 at 08:59 Docusate Sodium (Colace) 200 mg DAILY PO Last administered on 07/19/16 08:16; Start 07/15/16 at 09:00; Stop 08/14/16 at 08:59 Famotidine (Pepcid) 20 mg BID PO Last administered on 07/19/16 08:15; Start at 21:00; Stop 08/13/16 at 20:59 Ferrous Sulfate (Ferrous Sulfate) 325 mg BID PO Last administered on 07/19/16 08:15; Start 07/14/16 at 21:00; Stop 08/13/16 at 20:59 Fexofenadine HCl (Enriqueta) 60 mg DAILY PO Last administered on 07/19/16 08:16; Start 07/15/16 at 09:00; Stop 08/14/16 at 08:59 Fluticasone Propionate (Flonase 0.05% Nasal [place]) 2 spray DAILY NA Last administered on 07/19/16 08:14; Start 07/15/16 at 09:00; Stop 08/14/16 at 08:59 Home Med (Med Rec Complete!) ASDIRECTED XX ; Start 07/14/16 at 15:00; Stop at 15:00; Status DC Hydroxyzine HCl (Atarax) 25 mg QHSP PRN PO INSOMNIA Last administered on 23:36; Start 07/14/16 at 19:45; Stop 08/13/16 at 19:44 Levothyroxine Sodium (Synthroid) 0.025 mg DAILY@06 PO Last administered on 06:18; Start 07/18/16 at 06:00; Stop 08/17/16 at 05:59 Dodge Carbonate (Dodge Carbonate) 300 mg BID PO Last administered on 08:15; Start 07/14/16 at 21:00; Stop 08/13/16 at 20:59 Lurasidone HCl (Latuda) 20 mg DAILY@18 PO Last administered on 07/18/16 17:53; Start 07/16/16 at 18:00; Stop 08/15/16 at 17:59 Magnesium Hydroxide (Milk Of Magnesia) 30 ml DAILYPRN PRN PO CONSTIPATION; Start 07/14/16 at 19:45; Stop 08/13/16 at 19:44 Menthol/Methyl Salicylate (Bengay Cream) 1 dose BID TOP ; Start 07/18/16 at 21:00 ; Stop 07/18/16 at 21:00; Status DC Menthol/Methyl Salicylate (Bengay Cream) 1 dose BIDP PRN TOP PAIN; Start at 19:45; Stop 07/15/16 at 11:36; Status DC Menthol/Methyl Salicylate (Bengay Cream) 1 dose TID TOP Last administered on 08:15; Start 07/15/16 at 09:00; Stop 08/14/16 at 08:59 Nicotine (Nicoderm Cq 14mg) 1 patch DAILY TD Last administered on 07/19/16 08: 15; Start 07/15/16 at 09:00; Stop 08/14/16 at 08:59 Polyethylene Glycol (Miralax) 1 pkt Q2D PO ; Start 07/16/16 at 09:00; Stop at 08:59 Salmeterol Xinafoate/ Fluticasone (Advair Diskus 100/50) 1 puff BID INH Last administered on 07/19/16 08:14; Start 07/15/16 at 09:00; Stop 08/14/16 at 08:59 Trazodone HCl (Desyrel) 50 mg QHSP PRN PO INSOMNIA; Start 07/14/16 at 19:45; Stop 07/15/16 at 14:02; Status DC Trazodone HCl (Desyrel) 200 mg QHSP PRN PO INSOMNIA Last administered on 23:01; Start 07/15/16 at 14:00; Stop 08/14/16 at 13:59 Allergies Coded Allergies: Amitriptyline (Verified Allergy, Mild, Rash, 11/26/14) Thioridazine (Verified Allergy, Mild, EPS, 11/26/14) Haloperidol (Verified Allergy, Unknown, 07/14/16) Loxapine (Verified Allergy, Unknown, 07/14/16) Mirtazapine (Verified Allergy, Unknown, 07/14/16) Risperidone (Verified Adverse Reaction, Unknown, EPS, 05/13/16) Indu Flores Jul 19, 2016 14:30
[2016-07-19] MEDS: ACETAMINOPHEN TAB 650MG DOSE (2X325MG) PO PRN (16:49)
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
[2016-07-19] MEDS: LURASIDONE 20 MG TAB (LATUDA) PO SCH (17:44)
[2016-07-19 18:00] VITALS: BP 105/63
[2016-07-19] MEDS: traZODone 100 MG TAB PO PRN (22:58)
[2016-07-20] MEDS: LEVOTHYROXINE 0.025 MG TAB (25 MCG) PO SCH (05:49)
[2016-07-20 06:14] VITALS: BP 100/58
[2016-07-20] MEDS: NICOTINE 14 MG/24 HR TRANSDERMAL TD SCH (08:56)
[2016-07-20] MEDS: FLUTICASONE PROP 0.05% NASAL SPRAY 16 GM (FLONASE) SCH (08:57)
[2016-07-20] MEDS: ADVAIR DISKUS 100/50 INH PWD INH SCH ×2 (08:57→20:40)
[2016-07-20] MEDS: CHLORHEXIDINE GLUCONATE 0.12 % 15ML UDC (PERIDEX ORAL RINSE) SSP SCH ×3 (08:57→20:37)
[2016-07-20] MEDS: ANALGESIC BALM CRM 120 GM TOP SCH ×3 (08:57→20:38)
[2016-07-20] MEDS: LITHIUM CARBONATE 300 MG CAP PO SCH ×2 (08:58→20:37)
[2016-07-20] MEDS: DOCUSATE SODIUM 100 MG CAP PO SCH (08:58)
[2016-07-20] MEDS: AUGMENTIN 875 MG TAB PO SCH ×2 (08:59→20:37)
[2016-07-20] MEDS: FAMOTIDINE 20 MG TAB PO SCH ×2 (08:59→20:38)
[2016-07-20] MEDS: FEXOFENADINE 60 MG TAB PO SCH (08:59)
[2016-07-20] MEDS: FERROUS SULFATE 325MG TAB PO SCH ×2 (08:59→20:38)
[2016-07-20] MEDS: MIRALAX *UNIT DOSE* 17GM PACKET PO SCH (09:00)
[2016-07-20 12:23] VITALS: BP 114/58
[2016-07-20] MEDS: NAPROXEN 250 MG TAB PO SCH ×2 (13:27→20:38)
[2016-07-20] MEDS: LURASIDONE 20 MG TAB (LATUDA) PO SCH (17:41)
[2016-07-20 18:03] VITALS: BP 110/77
--- NOTE | 2016-07-20 18:03 | IPNPDOC ---
[facility] Progress Note Progress Note DATE OF SERVICE: 07/20/16 HISTORY: Auto Parker met with patient today to assess treatment progress on inpatient unit. Patient reports 1/10 anxiety, 3/10 depression, denies current suicidal or homicidal ideation, denies experiencing audiovisual hallucinations today, further denies visual hallucinations, denies urge to engage in self injurious behavior. Patient continues take lithium and notes medication is helpful, denies medication side effects. Patient is agreeable to continuation of Latuda, indicates he feels medication is helpful, verbalizes understanding of potential sensitivity to Invega due to history of adverse reaction to Risperdal. Patient indicates sleep is improved with trazodone, notes he wakes up one time during night, is able to resume sleep. Patient has not needed to utilize hydroxyzine PRN since 07/15/16. Patient endorses challenges with concentration and focus, scribes energy level as "so, so, states appetite is stable. Patient reports 7/10 pain to legs and back, notes he has experienced pain since 2010. Patient reiterates today that he does not wish to discharge back to previous living arrangement, is aware learning center coordinator is attempting to work with DSS worker on discharge plan, referral being made to TLS, patient is agreeable with following up outpatient treatment at [facility]. Patient is attending groups and is able to maintain behavioral control. Patient presents with no signs of acute distress at time of interaction. VITAL SIGNS: See below. Tachycardic, PA is aware and is addressing lower leg edema which is resolving. Per EMR, patient has experienced tachycardia since prior to initial hospitalization at [facility] in 2007, symptoms of tachycardia preexist Latuda, trazodone, and lithium. NEW TEST RESULTS: No new results. Patient has history of asthma, chronic hyperextension of knees, iron deficiency, chronic constipation, chronic back pain, chronic knee pain, chronic poor dentition, GERD, history of elevated LFTs , following with gastroenterology in [place]. Liver biopsy completed 06/15/16 as some see. Patient to go for second opinion [facility], appointment pending per patient. Labs on admission indicated low anion gap, RBC, Hgb, HCT and elevated glucose, MCV, MCH, TSH, also elevated on recheck, PA is monitoring 07/14/16 lithium level 0.74 UDS negative on admission 07/18/16 cervical spine x-ray - Mild curvature convex to the right could indicate some degree of muscle spasm. Otherwise unremarkable cervical spine series. 07/18/16 knee x-ray - Negative bilateral knee series 07/19/16 pain management consult completed with diagnosis of chronic generalized joint pain CURRENT MEDICATIONS: See below. MENTAL STATUS EXAMINATION: General: Well dressed with good hygiene, makes limited eye contact, dressed in hospital clothing, adequate personal hygiene, ambulates with steady gait, appears stated age Speech: Spontaneous and fluid Thought processes: Linear and logical Thought content: Focused on getting paliperidone Abstract reasoning: Intact Description of associations: Intact Description of abnormal or psychotic thoughts: Makes no threats against himself or others, does not appear to be responding to internal stimuli. Indicates he is hearing intermittent voices telling him he is worthless, denies audio hallucinations at time of interaction, denies visual hallucinations, denies urge to engage in self-injurious behavior, denies bizarre or paranoid ideation. Judgment: Limited Insight: Poor Orientation: Alert and orientated 3 Recent and remote memory: Intact Attention span and concentration: Intact Fund of knowledge: Adequate Mood: "I'm okay, but I really don't want to go back to where I was living." Patient presents as more depressed today, no anxiety noted, no mood lability noted Affect: Blunted but brightens DIAGNOSES: Unspecified mood disorder, rule out bipolar disorder, rule out MDD recurrent severe with psychotic features, rule out PTSD, rule out personality disorder, ADHD reported history, ASSESSMENT: 25-year-old man who was admitted to the inpatient psychiatric unit he has a history of trauma and poor family relational systems, notes he does not intend to return to prior living arrangement with [facility] payee. Patient has notable history of psychotropic medication trials with poor effect, also presents with potential hepatic challenges and is being monitored for potential cardiac challenges. Patient denies suicidal and homicidal ideation is able to verbalize awareness of how to access supportive services on unit if needed. Patient indicates lithium is currently effective and Latuda is helpful in controlling symptoms of depression and reported audio hallucinations. Will continue to monitor patient's response to medications and plan to titrate Latuda as tolerated, monitor for side effects, and will evaluate patient safety , resolution of suicidal thinking and audio hallucinations, and discharge readiness. pharmacy intake coordinator is attempting to work with DSS worker on discharge plan, referral being made to TLS, patient is agreeable with following up outpatient treatment at [facility]. MANAGEMENT PLAN: Continue lithium 300 mg po BID, Latuda 20 mg po at 18:00, trazodone 200 mg po hs PRN insomnia, and hydroxyzine 25 mg po hs PRN insomnia Maintain safety precautions Patient to attend groups and participate in unit programming to develop coping strategies Engage patient in discharge planning process and arrange meeting with support system to ensure safe discharge planning when appropriate Patient to follow up with PCM upon discharge TIME SPENT: 35 minutes. Vital Signs Vital Signs Date Time Temp Pulse Resp B/P Pulse Ox O2 Delivery O2 Flow Rate FiO2 07/20/16 12:23 98.9 100 18 114/58 07/19/16 06:17 Room Air 07/14/16 18:02 99 Current Medications Current Medications Acetaminophen (Tylenol Tab) 650 mg Q6HP PRN PO HEADACHE or DISCOMFORT Last administered on 07/19/16 16:49; Start 07/14/16 at 19:45; Stop 08/13/16 at 19:44 Al Hydrox/Mg Hydrox/Simethicone (Mylanta) 30 ml Q4HP PRN PO HEARTBURN/ INDIGESTION; Start 07/14/16 at 19:45; Stop 08/13/16 at 19:44 Albuterol Sulfate (Proventil, Ventolin Hfa) 2 puff Q4HP PRN INH SHORTNESS OF BREATH Last administered on 07/20/16 17:41; Start 07/14/16 at 19:45; Stop at 19:44 Amoxicillin/ Clavulanate Potassium (Augmentin) 875 mg BID PO Last administered on 07/20/16 08:59; Start 07/15/16 at 09:00; Stop 07/22/16 at 08:59 Chlorhexidine Gluconate (Peridex Oral Rinse) 15 ml TID SSP Last administered on 07/20/16 16:05; Start 07/15/16 at 09:00; Stop 08/14/16 at 08:59 Docusate Sodium (Colace) 200 mg DAILY PO Last administered on 07/20/16 08:58; Start 07/15/16 at 09:00; Stop 08/14/16 at 08:59 Famotidine (Pepcid) 20 mg BID PO Last administered on 07/20/16 08:59; Start at 21:00; Stop 08/13/16 at 20:59 Ferrous Sulfate (Ferrous Sulfate) 325 mg BID PO Last administered on 07/20/16 08:59; Start 07/14/16 at 21:00; Stop 08/13/16 at 20:59 Fexofenadine HCl (Enriqueta) 60 mg DAILY PO Last administered on 07/20/16 08:59; Start 07/15/16 at 09:00; Stop 08/14/16 at 08:59 Fluticasone Propionate (Flonase 0.05% Nasal [place]) 2 spray DAILY NA Last administered on 07/20/16 08:57; Start 07/15/16 at 09:00; Stop 08/14/16 at 08:59 Home Med (Med Rec Complete!) ASDIRECTED XX ; Start 07/14/16 at 15:00; Stop at 15:00; Status DC Hydroxyzine HCl (Atarax) 25 mg QHSP PRN PO INSOMNIA Last administered on 23:36; Start 07/14/16 at 19:45; Stop 08/13/16 at 19:44 Levothyroxine Sodium (Synthroid) 0.025 mg DAILY@06 PO Last administered on 05:49; Start 07/18/16 at 06:00; Stop 08/17/16 at 05:59 [place] Carbonate ([place] Carbonate) 300 mg BID PO Last administered on 08:58; Start 07/14/16 at 21:00; Stop 08/13/16 at 20:59 Lurasidone HCl (Latuda) 20 mg DAILY@18 PO Last administered on 07/20/16 17:41; Start 07/16/16 at 18:00; Stop 08/15/16 at 17:59 Magnesium Hydroxide (Milk Of Magnesia) 30 ml DAILYPRN PRN PO CONSTIPATION; Start 07/14/16 at 19:45; Stop 08/13/16 at 19:44 Menthol/Methyl Salicylate (Bengay Cream) 1 dose BID TOP ; Start 07/18/16 at 21:00 ; Stop 07/18/16 at 21:00; Status DC Menthol/Methyl Salicylate (Bengay Cream) 1 dose BIDP PRN TOP PAIN; Start at 19:45; Stop 07/15/16 at 11:36; Status DC Menthol/Methyl Salicylate (Bengay Cream) 1 dose TID TOP Last administered on 16:05; Start 07/15/16 at 09:00; Stop 08/14/16 at 08:59 Naproxen (Naprosyn) 250 mg BID PO Last administered on 07/20/16 13:27; Start at 09:00; Stop 08/19/16 at 08:59 Nicotine (Nicoderm Cq 14mg) 1 patch DAILY TD Last administered on 07/20/16 08: 56; Start 07/15/16 at 09:00; Stop 08/14/16 at 08:59 Polyethylene Glycol (Miralax) 1 pkt Q2D PO ; Start 07/16/16 at 09:00; Stop at 08:59 Salmeterol Xinafoate/ Fluticasone (Advair Diskus 100/50) 1 puff BID INH Last administered on 07/20/16 08:57; Start 07/15/16 at 09:00; Stop 08/14/16 at 08:59 Trazodone HCl (Desyrel) 50 mg QHSP PRN PO INSOMNIA; Start 07/14/16 at 19:45; Stop 07/15/16 at 14:02; Status DC Trazodone HCl (Desyrel) 200 mg QHSP PRN PO INSOMNIA Last administered on 22:58; Start 07/15/16 at 14:00; Stop 08/14/16 at 13:59 Allergies Coded Allergies: Amitriptyline (Verified Allergy, Mild, Rash, 11/26/14) Thioridazine (Verified Allergy, Mild, EPS, 11/26/14) Haloperidol (Verified Allergy, Unknown, 07/14/16) Loxapine (Verified Allergy, Unknown, 07/14/16) Mirtazapine (Verified Allergy, Unknown, 07/14/16) Risperidone (Verified Adverse Reaction, Unknown, EPS, 05/13/16) Indu Flores Jul 20, 2016 18:03
[2016-07-20 21:00] VITALS: BP 116/72
[2016-07-20] MEDS: traZODone 100 MG TAB PO PRN (23:04)
[2016-07-21] MEDS: LEVOTHYROXINE 0.025 MG TAB (25 MCG) PO SCH (05:41)
[2016-07-21 06:26] VITALS: BP 124/66
[2016-07-21] MEDS: DOCUSATE SODIUM 100 MG CAP PO SCH (08:07)
[2016-07-21] MEDS: NICOTINE 14 MG/24 HR TRANSDERMAL TD SCH (08:07)
[2016-07-21] MEDS: FEXOFENADINE 60 MG TAB PO SCH (08:08)
[2016-07-21] MEDS: FLUTICASONE PROP 0.05% NASAL SPRAY 16 GM (FLONASE) SCH (08:08)
[2016-07-21] MEDS: FERROUS SULFATE 325MG TAB PO SCH ×2 (08:08→21:19)
[2016-07-21] MEDS: ADVAIR DISKUS 100/50 INH PWD INH SCH ×2 (08:08→21:21)
[2016-07-21] MEDS: LITHIUM CARBONATE 300 MG CAP PO SCH ×2 (08:08→21:20)
[2016-07-21] MEDS: CHLORHEXIDINE GLUCONATE 0.12 % 15ML UDC (PERIDEX ORAL RINSE) SSP SCH ×3 (08:08→21:20)
[2016-07-21] MEDS: AUGMENTIN 875 MG TAB PO SCH ×2 (08:08→21:20)
[2016-07-21] MEDS: FAMOTIDINE 20 MG TAB PO SCH ×2 (08:09→21:19)
[2016-07-21] MEDS: NAPROXEN 250 MG TAB PO SCH (08:09)
[2016-07-21] MEDS: ANALGESIC BALM CRM 120 GM TOP SCH ×3 (08:11→21:21)
--- NOTE | 2016-07-21 12:25 | IPNPDOC ---
Subjective Date Seen The patient was seen on 07/21/16. Subjective Chief Complaint/HPI The patient is a 25-year-old male admitted with a reason for visit of Schizoaffective D/O. Events since last encounter Requested to evaluate patient for mouth discomfort and lower extremity edema. Naprosyn was previously added as per pain clinic recommendations for chronic pain. Lower extremity edema has been more noticeable per patient. He has been wearing NITIN stockings. Low-sodium diet. He has used Lasix as needed in the past. He states his lower extremity edema tends to come and go. He has noticed mouth irritation recently. Some white spots in his mouth. ENT: Denies: Dysphagia, Ear Pain, Head Aches Pulmonary: Denies: Cough, Dyspnea Cardiovascular: Denies: Chest Pain, Lt Headedness, Orthopnea, Palpitations, Paroxysmal Noc. Dyspnea Gastrointestinal: Denies: Abdominal Pain, Nausea, Vomiting Genitourinary: Denies: Dysuria, Frequency, Incontinence, Retention Objective Physical Examination General Exam: Positive: Alert Eye Exam: Positive: PERRLA ENT Exam: Positive: Atraumatic, Other ENT (white exudate is noted on the tongue and few spots on the buccal mucosa), Tongue Midline Chest Exam: Positive: Clear to auscultation, Normal air movement Heart Exam: Positive: Normal S1, Normal S2, Rate Normal, Regular Rhythm, Negative: Murmurs, Rubs Extremity Exam: Positive: Edema (trace edema is noted at the ankles bilaterally. No erythema. No calf tenderness. No warmth.), Normal pulses, Negative: Clubbing, Cyanosis Neuro Exam: Positive: Normal Gait, Other (he is wearing bilateral knee braces. He is wearing NITIN stockings bilaterally. One millimeter of pitting edema is noted in the pretibial area) Assessment /Plan Problems (1) Neck pain Status: Chronic Problem Text: * x-ray of cervical spine indicating some muscle spasm * Continue to apply BenGay cream as needed * Tylenol as needed * pain management opinion obtained suggesting rheumatology referral at discharge (2) Knee pain Status: Chronic Problem Text: * Continue with a braces as per PCP * Apply BenGay cream as needed * Tylenol as needed * x-ray of knees bilaterally unremarkable * Pain management opinion suggesting rheumatology referral at discharge (3) Hypothyroid Status: Chronic Problem Text: * Add Synthroid 25 g daily * Follow up with PCP in 4-6 weeks (4) Chronic bilateral low back pain Status: Chronic Problem Text: * X-ray of lumbosacral spine 05/16/16 with no bony abnormality noted. * Continue with BenGay cream as needed * Tylenol as needed * Request pain management opinion (5) Edema Status: Chronic Problem Text: * Continue low-sodium diet * Avoid NSAIDs * Elevate both lower extremities * Lasix 20 mg by mouth 1 today. Patient states he has used in the past as needed as an outpatient. * Monitor. (6) Oral thrush Status: Chronic Problem Text: * Add nystatin swish and swallow 4 times a day. (7) Poor dentition Status: Chronic Problem Text: * Patient is finishing by mouth Augmentin for dental infection noted at admission. D 10/24. Plan/VTE VTE Prophylaxis Ordered?: No (ambulatory) VS, I&O, 24H, Fishbone Vital Signs/I&O Vital Signs Date Time Temp Pulse Resp B/P Pulse Ox O2 Delivery O2 Flow Rate FiO2 07/21/16 06:26 98.2 72 18 124/66 07/19/16 06:17 Room Air Brandy Davis Jul 21, 2016 12:25
[2016-07-21] MEDS: ACETAMINOPHEN TAB 650MG DOSE (2X325MG) PO PRN ×2 (12:39→21:25)
[2016-07-21] MEDS ORDERED: FUROSEMIDE 20 MG TAB PO ONE (12:45)
[2016-07-21] MEDS: NYSTATIN 500,000 U/5 ML SUSP UDC SS SCH ×3 (15:33→21:20)
[2016-07-21] MEDS: LURASIDONE 20 MG TAB (LATUDA) PO SCH (17:37)
--- NOTE | 2016-07-21 17:54 | IPNPDOC ---
[facility] Progress Note Progress Note DATE OF SERVICE: 07/21/16 HISTORY: Auto Apprentice Mechanic met with patient today to assess treatment progress on inpatient unit. Patient reports 4/10 anxiety, 2/10 depression, denies current suicidal or homicidal ideation, denies experiencing audiovisual hallucinations today, notes last experienced last night, further denies visual hallucinations, denies urge to engage in self injurious behavior. Patient continues take lithium and notes medication is helpful, denies medication side effects. Patient is agreeable to continuation of Latuda, indicates he feels medication is helpful, today denies need for dosing adjustment. Patient indicates sleep is improved with trazodone, informs television script writer he slept well last night, contrary to EMR, indicates he woke once for something to drink and was able to resume sleep. Patient has not needed to utilize hydroxyzine PRN since 07/15/16. Patient endorses ongoing challenges with concentration and focus, describes energy level as "kind of low," describes appetite as stable. Patient reports 7/10 pain to legs and back, reiterates pain is chronic and he has experienced pain since 2010. Patient reiterates today that he does not wish to discharge back to previous living arrangement, is aware clinical care coordinator is attempting to work with DSS, APS, and shoe caser worker on discharge plan, referral being made to TLS. Patient remains agreeable with following up outpatient treatment at [facility]. Patient is attending groups and is able to maintain behavioral control. Patient presents with no signs of acute distress at time of interaction. VITAL SIGNS: See below. Tachycardic, PA is aware and is addressing lower leg edema which is resolving. Per EMR, patient has experienced tachycardia since prior to initial hospitalization at [facility] in 2007, symptoms of tachycardia preexist Latuda, trazodone, and lithium. NEW TEST RESULTS: No new results. Patient has history of asthma, chronic hyperextension of knees, iron deficiency, chronic constipation, chronic back pain, chronic knee pain, chronic poor dentition, GERD, history of elevated LFTs , following with gastroenterology in [place]. Liver biopsy completed 06/15/16 as some see. Patient to go for second opinion [facility], appointment pending per patient. Labs on admission indicated low anion gap, RBC, Hgb, HCT and elevated glucose, MCV, MCH, TSH, also elevated on recheck, PA is monitoring 07/14/16 lithium level 0.74 UDS negative on admission 07/18/16 cervical spine x-ray - Mild curvature convex to the right could indicate some degree of muscle spasm. Otherwise unremarkable cervical spine series. 07/18/16 knee x-ray - Negative bilateral knee series 07/19/16 pain management consult completed with diagnosis of chronic generalized joint pain Patient evaluated by PA today for mouth discomfort and lower extremity edema which she is being addressed and monitored by PA. Patient attributes lower extremity edema to chronic NSAID use CURRENT MEDICATIONS: See below. MENTAL STATUS EXAMINATION: General: Well dressed with good hygiene, makes improved eye contact, dressed in hospital clothing, adequate personal hygiene, ambulates with steady gait, appears stated age Speech: Spontaneous and fluid Thought processes: Linear and logical Thought content: Focused on getting paliperidone Abstract reasoning: Intact Description of associations: Intact Description of abnormal or psychotic thoughts: Makes no threats against himself or others, does not appear to be responding to internal stimuli. Denies hearing voices today but, per EMR, has recent history of hearing intermittent voices telling him he is worthless, denies audio hallucinations at time of interaction , denies visual hallucinations, denies urge to engage in self-injurious behavior , denies bizarre or paranoid ideation. Judgment: Limited Insight: Poor Orientation: Alert and orientated 3 Recent and remote memory: Intact Attention span and concentration: Intact Fund of knowledge: Adequate Mood: "I'm okay, I just want to make sure everybody understands that I don't want to go back to [facility] house." Patient presents as less depressed today, little anxiety noted, no mood lability noted Affect: Blunted but brightens DIAGNOSES: Unspecified mood disorder, rule out bipolar disorder, rule out MDD recurrent severe with psychotic features, rule out PTSD, rule out personality disorder, ADHD reported history, ASSESSMENT: 25-year-old man who was admitted to the inpatient psychiatric unit he has a history of trauma and poor family relational systems, notes he does not intend to return to prior living arrangement with DSS payee. Patient has notable history of psychotropic medication trials with poor effect, also presents with potential hepatic challenges and is being monitored for potential cardiac challenges. Patient denies suicidal and homicidal ideation is able to verbalize awareness of how to access supportive services on unit if needed. Patient indicates lithium is currently effective and Latuda is helpful in controlling symptoms of depression and reported audio hallucinations, denies need for dosing adjustment today. Will continue to monitor patient's response to medications and plan to titrate Latuda as indicated/tolerated, monitor for side effects, and will evaluate patient safety, resolution of suicidal thinking and audio hallucinations, and discharge readiness. medical records coordinator is attempting to work with DSS worker on discharge plan, referral being made to TLS , patient is agreeable with following up outpatient treatment at [facility]. MANAGEMENT PLAN: Continue lithium 300 mg po BID, Latuda 20 mg po at 18:00 with plan to titrate, trazodone 200 mg po hs PRN insomnia, and hydroxyzine 25 mg po hs PRN insomnia Maintain safety precautions Patient to attend groups and participate in unit programming to develop coping strategies Engage patient in discharge planning process and arrange meeting with support system to ensure safe discharge planning when appropriate Patient to follow up with PCM upon discharge TIME SPENT: 35 minutes. Vital Signs Vital Signs Date Time Temp Pulse Resp B/P Pulse Ox O2 Delivery O2 Flow Rate FiO2 07/21/16 06:26 98.2 72 18 124/66 07/19/16 06:17 Room Air Current Medications Current Medications Acetaminophen (Tylenol Tab) 650 mg Q6HP PRN PO HEADACHE or DISCOMFORT Last administered on 07/21/16 12:39; Start 07/14/16 at 19:45; Stop 08/13/16 at 19:44 Al Hydrox/Mg Hydrox/Simethicone (Mylanta) 30 ml Q4HP PRN PO HEARTBURN/ INDIGESTION; Start 07/14/16 at 19:45; Stop 08/13/16 at 19:44 Albuterol Sulfate (Proventil, Ventolin Hfa) 2 puff Q4HP PRN INH SHORTNESS OF BREATH Last administered on 07/20/16 17:41; Start 07/14/16 at 19:45; Stop at 19:44 Amoxicillin/ Clavulanate Potassium (Augmentin) 875 mg BID PO Last administered on 07/21/16 08:08; Start 07/15/16 at 09:00; Stop 07/22/16 at 08:59 Chlorhexidine Gluconate (Peridex Oral Rinse) 15 ml TID SSP Last administered on 07/21/16 15:32; Start 07/15/16 at 09:00; Stop 08/14/16 at 08:59 Docusate Sodium (Colace) 200 mg DAILY PO Last administered on 07/21/16 08:07; Start 07/15/16 at 09:00; Stop 08/14/16 at 08:59 Famotidine (Pepcid) 20 mg BID PO Last administered on 07/21/16 08:09; Start at 21:00; Stop 08/13/16 at 20:59 Ferrous Sulfate (Ferrous Sulfate) 325 mg BID PO Last administered on 07/21/16 08:08; Start 07/14/16 at 21:00; Stop 08/13/16 at 20:59 Fexofenadine HCl (Enriqueta) 60 mg DAILY PO Last administered on 07/21/16 08:08; Start 07/15/16 at 09:00; Stop 08/14/16 at 08:59 Fluticasone Propionate (Flonase 0.05% Nasal [place]) 2 spray DAILY NA Last administered on 07/21/16 08:08; Start 07/15/16 at 09:00; Stop 08/14/16 at 08:59 Home Med (Med Rec Complete!) ASDIRECTED XX ; Start 07/14/16 at 15:00; Stop at 15:00; Status DC Hydroxyzine HCl (Atarax) 25 mg QHSP PRN PO INSOMNIA Last administered on 23:36; Start 07/14/16 at 19:45; Stop 08/13/16 at 19:44 Levothyroxine Sodium (Synthroid) 0.025 mg DAILY@06 PO Last administered on 05:41; Start 07/18/16 at 06:00; Stop 08/17/16 at 05:59 [place] Carbonate ([place] Carbonate) 300 mg BID PO Last administered on 08:08; Start 07/14/16 at 21:00; Stop 08/13/16 at 20:59 Lurasidone HCl (Latuda) 20 mg DAILY@18 PO Last administered on 07/21/16 17:37; Start 07/16/16 at 18:00; Stop 08/15/16 at 17:59 Magnesium Hydroxide (Milk Of Magnesia) 30 ml DAILYPRN PRN PO CONSTIPATION; Start 07/14/16 at 19:45; Stop 08/13/16 at 19:44 Menthol/Methyl Salicylate (Bengay Cream) 1 dose BID TOP ; Start 07/18/16 at 21:00 ; Stop 07/18/16 at 21:00; Status DC Menthol/Methyl Salicylate (Bengay Cream) 1 dose BIDP PRN TOP PAIN; Start at 19:45; Stop 07/15/16 at 11:36; Status DC Menthol/Methyl Salicylate (Bengay Cream) 1 dose TID TOP Last administered on 15:35; Start 07/15/16 at 09:00; Stop 08/14/16 at 08:59 Naproxen (Naprosyn) 250 mg BID PO Last administered on 07/21/16 08:09; Start at 09:00; Stop 07/21/16 at 12:19; Status DC Nicotine (Nicoderm Cq 14mg) 1 patch DAILY TD Last administered on 07/21/16 08: 07; Start 07/15/16 at 09:00; Stop 08/14/16 at 08:59 Nystatin (Mycostatin) 5 ml QID SS Last administered on 07/21/16 15:33; Start at 13:00; Stop 07/28/16 at 12:59 Polyethylene Glycol (Miralax) 1 pkt Q2D PO ; Start 07/16/16 at 09:00; Stop at 08:59 Salmeterol Xinafoate/ Fluticasone (Advair Diskus 100/50) 1 puff BID INH Last administered on 07/21/16 08:08; Start 07/15/16 at 09:00; Stop 08/14/16 at 08:59 Trazodone HCl (Desyrel) 50 mg QHSP PRN PO INSOMNIA; Start 07/14/16 at 19:45; Stop 07/15/16 at 14:02; Status DC Trazodone HCl (Desyrel) 200 mg QHSP PRN PO INSOMNIA Last administered on 23:04; Start 07/15/16 at 14:00; Stop 08/14/16 at 13:59 Allergies Coded Allergies: Amitriptyline (Verified Allergy, Mild, Rash, 11/26/14) Thioridazine (Verified Allergy, Mild, EPS, 11/26/14) Haloperidol (Verified Allergy, Unknown, 07/14/16) Loxapine (Verified Allergy, Unknown, 07/14/16) Mirtazapine (Verified Allergy, Unknown, 07/14/16) Risperidone (Verified Adverse Reaction, Unknown, EPS, 05/13/16) Indu Flores Jul 21, 2016 17:54
[2016-07-21 18:00] VITALS: BP 121/56
[2016-07-21] MEDS: traZODone 100 MG TAB PO PRN (23:02)
[2016-07-22 06:15] VITALS: BP 97/48
[2016-07-22] MEDS: LEVOTHYROXINE 0.025 MG TAB (25 MCG) PO SCH (06:17)
[2016-07-22] MEDS: MIRALAX *UNIT DOSE* 17GM PACKET PO SCH (09:00)
[2016-07-22] MEDS: DOCUSATE SODIUM 100 MG CAP PO SCH (09:05)
[2016-07-22] MEDS: AUGMENTIN 875 MG TAB PO SCH ×2 (09:05→19:59)
[2016-07-22] MEDS: NICOTINE 14 MG/24 HR TRANSDERMAL TD SCH (09:05)
[2016-07-22] MEDS: FLUTICASONE PROP 0.05% NASAL SPRAY 16 GM (FLONASE) SCH (09:05)
[2016-07-22] MEDS: FAMOTIDINE 20 MG TAB PO SCH ×2 (09:05→19:58)
[2016-07-22] MEDS: LITHIUM CARBONATE 300 MG CAP PO SCH ×2 (09:05→19:59)
[2016-07-22] MEDS: FERROUS SULFATE 325MG TAB PO SCH ×2 (09:05→19:59)
[2016-07-22] MEDS: ADVAIR DISKUS 100/50 INH PWD INH SCH ×2 (09:05→19:58)
[2016-07-22] MEDS: ANALGESIC BALM CRM 120 GM TOP SCH ×3 (09:06→20:01)
[2016-07-22] MEDS: FEXOFENADINE 60 MG TAB PO SCH (09:06)
[2016-07-22] MEDS: CHLORHEXIDINE GLUCONATE 0.12 % 15ML UDC (PERIDEX ORAL RINSE) SSP SCH ×3 (09:06→20:00)
[2016-07-22] MEDS: NYSTATIN 500,000 U/5 ML SUSP UDC SS SCH ×4 (09:07→20:00)
--- NOTE | 2016-07-22 10:42 | IPNPDOC ---
Subjective Date Seen The patient was seen on 07/22/16. Subjective Chief Complaint/HPI The patient is a 25-year-old male admitted with a reason for visit of Schizoaffective D/O. Events since last encounter pt states edema improved. Still with some LBP. Feet itchy. Objective Physical Examination General Exam: Positive: Alert Eye Exam: Positive: PERRLA ENT Exam: Positive: Atraumatic, Other ENT (white exudate is noted on the tongue and few spots on the buccal mucosa), Tongue Midline Chest Exam: Positive: Clear to auscultation, Normal air movement Heart Exam: Positive: Normal S1, Normal S2, Rate Normal, Regular Rhythm, Negative: Murmurs, Rubs Extremity Exam: Positive: Edema (trace edema is noted at the ankles bilaterally. No erythema. No calf tenderness. No warmth.), Normal pulses, Negative: Clubbing, Cyanosis Neuro Exam: Positive: Normal Gait, Other (he is wearing bilateral knee braces. He is wearing NITIN stockings bilaterally. One millimeter of pitting edema is noted in the pretibial area) Assessment /Plan Problems (1) Neck pain Status: Chronic Problem Text: * x-ray of cervical spine indicating some muscle spasm * Continue to apply BenGay cream as needed * Tylenol as needed * pain management opinion obtained suggesting rheumatology referral at discharge (2) Knee pain Status: Chronic Problem Text: * Continue with a braces as per PCP * Apply BenGay cream as needed * Tylenol as needed * x-ray of knees bilaterally unremarkable * Pain management opinion suggesting rheumatology referral at discharge (3) Hypothyroid Status: Chronic Problem Text: * Add Synthroid 25 g daily * Follow up with PCP in 4-6 weeks (4) Chronic bilateral low back pain Status: Chronic Problem Text: * X-ray of lumbosacral spine 05/16/16 with no bony abnormality noted. * Continue with BenGay cream as needed * Tylenol as needed * Request pain management opinion * Apply lidoderm patch daily (5) Edema Status: Chronic Problem Text: * Continue low-sodium diet * Avoid NSAIDs * Elevate both lower extremities * Lasix 20 mg by mouth 1 07/21/16. Patient states he has used in the past as needed as an outpatient. * Improved. * Monitor (6) Oral thrush Status: Chronic Problem Text: * nystatin swish and swallow 4 times a day. (7) Poor dentition Status: Chronic Problem Text: * Augmentin for dental infection noted at admission. D 11/24. (8) Dermatophytosis of foot Status: Chronic Problem Text: * ketoconazole cream Plan/VTE VTE Prophylaxis Ordered?: No (ambulatory) VS, I&O, 24H, Fishbone Vital Signs/I&O Vital Signs Date Time Temp Pulse Resp B/P Pulse Ox O2 Delivery O2 Flow Rate FiO2 07/22/16 06:15 98.4 98 18 97/48 07/19/16 06:17 Room Air Brandy Davis Jul 22, 2016 10:42
[2016-07-22] MEDS: LIDOCAINE 5% (LIDODERM) PATCH TD SCH (11:29)
[2016-07-22] MEDS: KETOCONAZOLE 2% CREAM TOP SCH (11:29)
[2016-07-22 12:00] VITALS: BP 110/60
--- NOTE | 2016-07-22 14:26 | IPNPDOC ---
[facility] Progress Note Progress Note DATE OF SERVICE: 07/22/16 HISTORY: Airport Representative met with patient today to assess treatment progress on inpatient unit. Patient reports 3/10 anxiety, 2/10 depression, denies current suicidal or homicidal ideation, denies experiencing audiovisual hallucinations today, notes last experienced 07/20/16 at night hearing voice telling him "You're no good, you're worthless." Patient denies visual hallucinations, denies urge to engage in self injurious behavior. Patient continues to take lithium and notes medication is effective, denies medication side effects. Patient reports some ruminative thinking at night, remains fixated on desire to not be discharged back to previous housing situation, appears anxious related to discharge, makes repetitive statements pertaining to mother and Alise, verbalizes awareness of TLS meeting scheduled for Monday. Patient makes requests for Latuda dose increase today, indicates he feels medication is partially helpful and denies medication side effects. Patient informs teletypewriter installer he slept well last night (contrary to EMR), indicates he awoke 1 for something to drink and was able to resume sleep quickly, states trazodone remains generally effective. Patient has not needed to utilize hydroxyzine PRN since 07/15/16. Patient endorses ongoing challenges with concentration and focus, indicates some improvement in energy level, describes appetite as stable. Patient reports 5/10 pain to legs and back, reiterates pain is chronic and he has experienced pain since 2010. Patient reiterates today that he does not wish to discharge back to previous living arrangement, is aware career services coordinator is attempting to work with DSS, APS, and pillowcase cutter worker on discharge plan, referral being made to TLS. Patient remains agreeable with following up outpatient treatment at [facility]. Patient is attending groups and is able to maintain behavioral control. Patient presents with no signs of acute distress at time of interaction. VITAL SIGNS: See below. Tachycardic, JOCE is aware and is recommending outpatient follow-up and is addressing lower leg edema which is resolving. Per EMR, patient has experienced tachycardia since prior to initial hospitalization at [facility] in 2007, symptoms of tachycardia preexist Latuda, trazodone, and lithium. NEW TEST RESULTS: No new results. Patient has history of asthma, chronic hyperextension of knees, iron deficiency, chronic constipation, chronic back pain, chronic knee pain, chronic poor dentition, GERD, history of elevated LFTs , following with gastroenterology in [place]. Liver biopsy completed 06/15/16 as some see. Patient to go for second opinion [facility], appointment pending per patient. Labs on admission indicated low anion gap, RBC, Hgb, HCT and elevated glucose, MCV, MCH, TSH, also elevated on recheck, PA is monitoring 07/14/16 lithium level 0.74 UDS negative on admission 07/18/16 cervical spine x-ray - Mild curvature convex to the right could indicate some degree of muscle spasm. Otherwise unremarkable cervical spine series. 07/18/16 knee x-ray - Negative bilateral knee series 07/19/16 pain management consult completed with diagnosis of chronic generalized joint pain Patient evaluated by PA today for mouth discomfort and lower extremity edema which she is being addressed and monitored by PA. Patient attributes lower extremity edema to chronic NSAID use CURRENT MEDICATIONS: See below. MENTAL STATUS EXAMINATION: General: Adequately dressed with adequate hygiene, makes improved eye contact, dressed in own clothing, ambulates with steady gait, appears stated age Speech: Of normal rate, rhythm, volume, spontaneous and fluid Thought processes: Linear and logical Thought content: Focused on getting injectable medication, logical, no paranoia noted Abstract reasoning: Intact Description of associations: Intact Description of abnormal or psychotic thoughts: Makes no threats against himself or others, does not appear to be responding to internal stimuli. Denies hearing voices today but has recent history of hearing intermittent voices telling him he is worthless, denies audio hallucinations at time of interaction, denies visual hallucinations, denies urge to engage in self-injurious behavior, denies bizarre or paranoid ideation. Judgment: Fair, continues to improve Insight: Fair, is improving during treatment Orientation: Alert and orientated 3 Recent and remote memory: Intact Attention span and concentration: Intact Fund of knowledge: Adequate Mood: "I'm doing better I guess, but I feel very strongly that I don't want to go back to Ibis's house and maybe I should send her an email to let her know." Patient presents as anxious but less depressed today, mood lability noted Affect: Blunted but brightens DIAGNOSES: Unspecified mood disorder, rule out bipolar disorder, rule out MDD recurrent severe with psychotic features, rule out PTSD, rule out personality disorder, ADHD reported history, ASSESSMENT: 25-year-old man who was admitted to the inpatient psychiatric unit he has a history of trauma and poor family relational systems, notes he does not want to return to prior living arrangement with [facility] payee. Patient has notable history of psychotropic medication trials with poor effect, also presents with potential hepatic challenges and is being monitored for potential cardiac challenges. Patient denies suicidal and homicidal ideation is able to verbalize awareness of how to access supportive services on unit if needed. Patient indicates lithium is currently effective and today makes request for Latuda dosing adjustment to address ruminative thinking, intermittent audio hallucinations, and indicates he has taken medication at current dose in the past and medication become ineffective. Will continue to monitor patient's response to medications and monitor for side effects, and will evaluate patient safety, resolution of suicidal thinking and audio hallucinations, and discharge readiness. guest relations coordinator is attempting to work with DSS worker on discharge plan, referral being made to TLS with intake appointment scheduled for Monday, patient is agreeable with following up outpatient treatment at [facility]. MANAGEMENT PLAN: Increase Latuda to 40 mg po at 18:00. Continue [place] 300 mg po BID, trazodone 200 mg po hs PRN insomnia, and hydroxyzine 25 mg po hs PRN insomnia Maintain safety precautions Patient to attend groups and participate in unit programming to develop coping strategies Engage patient in discharge planning process and arrange meeting with support system to ensure safe discharge planning when appropriate Patient to follow up with PCM upon discharge TIME SPENT: 35 minutes. Vital Signs Vital Signs Date Time Temp Pulse Resp B/P Pulse Ox O2 Delivery O2 Flow Rate FiO2 07/22/16 12:00 97.1 94 18 110/60 07/19/16 06:17 Room Air Current Medications Current Medications Acetaminophen (Tylenol Tab) 650 mg Q6HP PRN PO HEADACHE or DISCOMFORT Last administered on 07/21/16 21:25; Start 07/14/16 at 19:45; Stop 08/13/16 at 19:44 Al Hydrox/Mg Hydrox/Simethicone (Mylanta) 30 ml Q4HP PRN PO HEARTBURN/ INDIGESTION; Start 07/14/16 at 19:45; Stop 08/13/16 at 19:44 Albuterol Sulfate (Proventil, Ventolin Hfa) 2 puff Q4HP PRN INH SHORTNESS OF BREATH Last administered on 07/20/16 17:41; Start 07/14/16 at 19:45; Stop at 19:44 Amoxicillin/ Clavulanate Potassium (Augmentin) 875 mg BID PO Last administered on 07/22/16 09:05; Start 07/15/16 at 09:00; Stop 07/24/16 at 20:59 Chlorhexidine Gluconate (Peridex Oral Rinse) 15 ml TID SSP Last administered on 07/22/16 09:06; Start 07/15/16 at 09:00; Stop 08/14/16 at 08:59 Docusate Sodium (Colace) 200 mg DAILY PO Last administered on 07/22/16 09:05; Start 07/15/16 at 09:00; Stop 08/14/16 at 08:59 Famotidine (Pepcid) 20 mg BID PO Last administered on 07/22/16 09:05; Start at 21:00; Stop 08/13/16 at 20:59 Ferrous Sulfate (Ferrous Sulfate) 325 mg BID PO Last administered on 07/22/16 09:05; Start 07/14/16 at 21:00; Stop 08/13/16 at 20:59 Fexofenadine HCl (Enriqueta) 60 mg DAILY PO Last administered on 07/22/16 09:06; Start 07/15/16 at 09:00; Stop 08/14/16 at 08:59 Fluticasone Propionate (Flonase 0.05% Nasal [place]) 2 spray DAILY NA Last administered on 07/22/16 09:05; Start 07/15/16 at 09:00; Stop 08/14/16 at 08:59 Home Med (Med Rec Complete!) ASDIRECTED XX ; Start 07/14/16 at 15:00; Stop at 15:00; Status DC Hydroxyzine HCl (Atarax) 25 mg QHSP PRN PO INSOMNIA Last administered on 23:36; Start 07/14/16 at 19:45; Stop 08/13/16 at 19:44 Ketoconazole (Nizoral) 1 dose DAILY TOP Last administered on 07/22/16 11:29; Start 07/22/16 at 09:00; Stop 08/21/16 at 08:59 Levothyroxine Sodium (Synthroid) 0.025 mg DAILY@06 PO Last administered on 06:17; Start 07/18/16 at 06:00; Stop 08/17/16 at 05:59 Lidocaine (Lidoderm Patch) 1 patch DAILY TD Last administered on 07/22/16 11:29 ; Start 07/22/16 at 09:00; Stop 08/21/16 at 08:59 [place] Carbonate ([place] Carbonate) 300 mg BID PO Last administered on 09:05; Start 07/14/16 at 21:00; Stop 08/13/16 at 20:59 Lurasidone HCl (Latuda) 20 mg DAILY@18 PO Last administered on 07/21/16 17:37; Start 07/16/16 at 18:00; Stop 08/15/16 at 17:59 Magnesium Hydroxide (Milk Of Magnesia) 30 ml DAILYPRN PRN PO CONSTIPATION; Start 07/14/16 at 19:45; Stop 08/13/16 at 19:44 Menthol/Methyl Salicylate (Bengay Cream) 1 dose BID TOP ; Start 07/18/16 at 21:00 ; Stop 07/18/16 at 21:00; Status DC Menthol/Methyl Salicylate (Bengay Cream) 1 dose BIDP PRN TOP PAIN; Start at 19:45; Stop 07/15/16 at 11:36; Status DC Menthol/Methyl Salicylate (Bengay Cream) 1 dose TID TOP Last administered on 09:06; Start 07/15/16 at 09:00; Stop 08/14/16 at 08:59 Naproxen (Naprosyn) 250 mg BID PO Last administered on 07/21/16 08:09; Start at 09:00; Stop 07/21/16 at 12:19; Status DC Nicotine (Nicoderm Cq 14mg) 1 patch DAILY TD Last administered on 07/22/16 09: 05; Start 07/15/16 at 09:00; Stop 08/14/16 at 08:59 Non-Formulary Medication ( See Comment Field Below ) REMOVE LIDODERM PATCH DAILY@21 XX ; Start 07/22/16 at 21:00; Stop 08/21/16 at 20:59 Nystatin (Mycostatin) 5 ml QID SS Last administered on 07/22/16 09:07; Start at 13:00; Stop 07/28/16 at 12:59 Polyethylene Glycol (Miralax) 1 pkt Q2D PO ; Start 07/16/16 at 09:00; Stop at 08:59 Salmeterol Xinafoate/ Fluticasone (Advair Diskus 100/50) 1 puff BID INH Last administered on 07/22/16 09:05; Start 07/15/16 at 09:00; Stop 08/14/16 at 08:59 Trazodone HCl (Desyrel) 50 mg QHSP PRN PO INSOMNIA; Start 07/14/16 at 19:45; Stop 07/15/16 at 14:02; Status DC Trazodone HCl (Desyrel) 200 mg QHSP PRN PO INSOMNIA Last administered on 23:02; Start 07/15/16 at 14:00; Stop 08/14/16 at 13:59 Allergies Coded Allergies: Amitriptyline (Verified Allergy, Mild, Rash, 11/26/14) Thioridazine (Verified Allergy, Mild, EPS, 11/26/14) Haloperidol (Verified Allergy, Unknown, 07/14/16) Loxapine (Verified Allergy, Unknown, 07/14/16) Mirtazapine (Verified Allergy, Unknown, 07/14/16) Risperidone (Verified Adverse Reaction, Unknown, EPS, 05/13/16) Indu Flores Jul 22, 2016 14:26
[2016-07-22] MEDS: LURASIDONE HCL 40 MG TAB (LATUDA) PO SCH (17:36)
[2016-07-22 18:00] VITALS: BP 111/60
[2016-07-22] MEDS: **NOTE PATIENT COMMENT** MISC XX SCH (20:01)
[2016-07-22] MEDS: traZODone 100 MG TAB PO PRN (22:30)
[2016-07-23] MEDS: LEVOTHYROXINE 0.025 MG TAB (25 MCG) PO SCH (06:05)
[2016-07-23 06:55] VITALS: BP 112/58
[2016-07-23] MEDS: KETOCONAZOLE 2% CREAM TOP SCH (08:38)
[2016-07-23] MEDS: LIDOCAINE 5% (LIDODERM) PATCH TD SCH (08:38)
[2016-07-23] MEDS: FLUTICASONE PROP 0.05% NASAL SPRAY 16 GM (FLONASE) SCH (08:38)
[2016-07-23] MEDS: ADVAIR DISKUS 100/50 INH PWD INH SCH ×2 (08:38→20:58)
[2016-07-23] MEDS: AUGMENTIN 875 MG TAB PO SCH ×2 (08:39→20:58)
[2016-07-23] MEDS: FAMOTIDINE 20 MG TAB PO SCH ×2 (08:39→20:58)
[2016-07-23] MEDS: ANALGESIC BALM CRM 120 GM TOP SCH ×3 (08:39→20:58)
[2016-07-23] MEDS: FEXOFENADINE 60 MG TAB PO SCH (08:39)
[2016-07-23] MEDS: LITHIUM CARBONATE 300 MG CAP PO SCH ×2 (08:39→20:58)
[2016-07-23] MEDS: FERROUS SULFATE 325MG TAB PO SCH ×2 (08:39→20:58)
[2016-07-23] MEDS: DOCUSATE SODIUM 100 MG CAP PO SCH (08:39)
[2016-07-23] MEDS: NICOTINE 14 MG/24 HR TRANSDERMAL TD SCH (08:40)
[2016-07-23] MEDS: CHLORHEXIDINE GLUCONATE 0.12 % 15ML UDC (PERIDEX ORAL RINSE) SSP SCH ×3 (08:40→20:58)
[2016-07-23] MEDS: NYSTATIN 500,000 U/5 ML SUSP UDC SS SCH ×4 (08:40→20:58)
[2016-07-23 12:00] VITALS: BP 107/60
[2016-07-23 18:00] VITALS: BP 110/62
[2016-07-23] MEDS: LURASIDONE HCL 40 MG TAB (LATUDA) PO SCH (18:03)
[2016-07-23] MEDS: **NOTE PATIENT COMMENT** MISC XX SCH (20:59)
[2016-07-23] MEDS: traZODone 100 MG TAB PO PRN (23:53)
[2016-07-23] MEDS: ACETAMINOPHEN TAB 650MG DOSE (2X325MG) PO PRN (23:53)
[2016-07-24] MEDS: ACETAMINOPHEN TAB 650MG DOSE (2X325MG) PO PRN ×2 (05:24→16:22)
[2016-07-24] MEDS: LEVOTHYROXINE 0.025 MG TAB (25 MCG) PO SCH (06:04)
[2016-07-24 06:21] VITALS: BP 117/55
[2016-07-24] MEDS: ADVAIR DISKUS 100/50 INH PWD INH SCH ×2 (08:07→20:40)
[2016-07-24] MEDS: FAMOTIDINE 20 MG TAB PO SCH ×2 (08:08→20:41)
[2016-07-24] MEDS: FLUTICASONE PROP 0.05% NASAL SPRAY 16 GM (FLONASE) SCH (08:08)
[2016-07-24] MEDS: DOCUSATE SODIUM 100 MG CAP PO SCH (08:08)
[2016-07-24] MEDS: AUGMENTIN 875 MG TAB PO SCH (08:08)
[2016-07-24] MEDS: FEXOFENADINE 60 MG TAB PO SCH (08:08)
[2016-07-24] MEDS: NYSTATIN 500,000 U/5 ML SUSP UDC SS SCH ×4 (08:08→20:40)
[2016-07-24] MEDS: ANALGESIC BALM CRM 120 GM TOP SCH ×3 (08:08→20:41)
[2016-07-24] MEDS: KETOCONAZOLE 2% CREAM TOP SCH (08:09)
[2016-07-24] MEDS: NICOTINE 14 MG/24 HR TRANSDERMAL TD SCH (08:09)
[2016-07-24] MEDS: LITHIUM CARBONATE 300 MG CAP PO SCH ×2 (08:09→20:40)
[2016-07-24] MEDS: FERROUS SULFATE 325MG TAB PO SCH ×2 (08:09→20:41)
[2016-07-24] MEDS: LIDOCAINE 5% (LIDODERM) PATCH TD SCH (08:10)
[2016-07-24] MEDS: CHLORHEXIDINE GLUCONATE 0.12 % 15ML UDC (PERIDEX ORAL RINSE) SSP SCH ×3 (08:10→20:40)
[2016-07-24] MEDS: MIRALAX *UNIT DOSE* 17GM PACKET PO SCH (08:10)
[2016-07-24 12:00] VITALS: BP 117/78
[2016-07-24 18:00] VITALS: BP 120/80
[2016-07-24] MEDS: LURASIDONE HCL 40 MG TAB (LATUDA) PO SCH (18:24)
[2016-07-24] MEDS: **NOTE PATIENT COMMENT** MISC XX SCH (20:41)
[2016-07-24 21:00] VITALS: BP 120/58
[2016-07-24] MEDS: traZODone 100 MG TAB PO PRN (22:00)
[2016-07-25] MEDS: ACETAMINOPHEN TAB 650MG DOSE (2X325MG) PO PRN ×3 (04:12→21:30)
[2016-07-25] MEDS: LEVOTHYROXINE 0.025 MG TAB (25 MCG) PO SCH (05:48)
[2016-07-25 06:55] VITALS: BP 104/53
[2016-07-25] MEDS: CHLORHEXIDINE GLUCONATE 0.12 % 15ML UDC (PERIDEX ORAL RINSE) SSP SCH ×3 (08:04→20:27)
[2016-07-25] MEDS: NYSTATIN 500,000 U/5 ML SUSP UDC SS SCH ×4 (08:04→20:27)
[2016-07-25] MEDS: ADVAIR DISKUS 100/50 INH PWD INH SCH ×2 (08:04→20:27)
[2016-07-25] MEDS: FLUTICASONE PROP 0.05% NASAL SPRAY 16 GM (FLONASE) SCH (08:04)
[2016-07-25] MEDS: FERROUS SULFATE 325MG TAB PO SCH ×2 (08:05→20:27)
[2016-07-25] MEDS: NICOTINE 14 MG/24 HR TRANSDERMAL TD SCH (08:05)
[2016-07-25] MEDS: LIDOCAINE 5% (LIDODERM) PATCH TD SCH (08:05)
[2016-07-25] MEDS: FAMOTIDINE 20 MG TAB PO SCH ×2 (08:05→20:27)
[2016-07-25] MEDS: DOCUSATE SODIUM 100 MG CAP PO SCH (08:05)
[2016-07-25] MEDS: FEXOFENADINE 60 MG TAB PO SCH (08:05)
[2016-07-25] MEDS: LITHIUM CARBONATE 300 MG CAP PO SCH ×2 (08:05→20:27)
[2016-07-25] MEDS: ANALGESIC BALM CRM 120 GM TOP SCH ×3 (08:09→20:25)
[2016-07-25] MEDS: KETOCONAZOLE 2% CREAM TOP SCH (08:09)
[2016-07-25 12:00] VITALS: BP 111/53
[2016-07-25] MEDS: LURASIDONE HCL 40 MG TAB (LATUDA) PO SCH (17:53)
--- NOTE | 2016-07-25 17:54 | IPNPDOC ---
[facility] Progress Note Progress Note DATE OF SERVICE: 07/25/16 HISTORY: Abrading Machine Tender met with patient today to assess treatment progress on inpatient unit. Patient reports 0/10 anxiety, 0/10 depression, denies current suicidal or homicidal ideation, denies experiencing audiovisual hallucinations today, notes last experienced 07/20/16. Patient denies visual hallucinations, denies urge to engage in self injurious behavior. Patient continues to take lithium and notes medication is effective, denies medication side effects. Patient today reports dramatic improvement to symptoms of anxiety and depression , denies ruminative thinking at night, is no longer fixated on communicating dissatisfaction with prior living arrangement and refusal to return. Patient is today future thinking and optimistic, informs typewriter aligner he feels prepared to discharge to housing arranged by DSS while awaiting TLS placement, indicates he feels "fine, no problem," about going to hotel while awaiting placement. Patient indicates he has friends in the area and is able to verbalize support system and how to access support and assistance if needed. Patient states that 2 to at increased dose is working well, denies medication side effects and reports improvement to sleep. Patient denies nighttime waking and nightmares, indicates his sleep now feels recuperative. Patient indicates trazodone remains effective and he denies medication side effects, has not needed to utilize hydroxyzine PRN since 07/15/16. Patient reports improvement to concentration and focus, indicates energy level has increased and describes his appetite as "normal." Patient denies physical pain at time of interaction, denies symptoms of previously reported edema, and presents with no signs of acute distress. VITAL SIGNS: See below. Tachycardic, JOCE is aware and is recommending outpatient follow-up and is addressing lower leg edema which is resolving. Per EMR, patient has experienced tachycardia since prior to initial hospitalization at [facility] in 2007, symptoms of tachycardia preexist Latuda, trazodone, and lithium. NEW TEST RESULTS: No new results. Patient has history of asthma, chronic hyperextension of knees, iron deficiency, chronic constipation, chronic back pain, chronic knee pain, chronic poor dentition, GERD, history of elevated LFTs , following with gastroenterology in [place]. Liver biopsy completed 06/15/16 as some see. Patient to go for second opinion [facility], appointment pending per patient. Labs on admission indicated low anion gap, RBC, Hgb, HCT and elevated glucose, MCV, MCH, TSH, also elevated on recheck, PA is monitoring 07/14/16 lithium level 0.74 UDS negative on admission 07/18/16 cervical spine x-ray - Mild curvature convex to the right could indicate some degree of muscle spasm. Otherwise unremarkable cervical spine series. 07/18/16 knee x-ray - Negative bilateral knee series 07/19/16 pain management consult completed with diagnosis of chronic generalized joint pain Patient evaluated by PA today for mouth discomfort and lower extremity edema which she is being addressed and monitored by PA. Patient attributes lower extremity edema to chronic NSAID use CURRENT MEDICATIONS: See below. MENTAL STATUS EXAMINATION: General: Adequately dressed with adequate hygiene, makes improved eye contact, dressed in own clothing, ambulates with steady gait, appears stated age Speech: Of normal rate, rhythm, volume, spontaneous and fluid Thought processes: Linear and logical Thought content: Focused on getting injectable medication, logical, no paranoia noted Abstract reasoning: Intact Description of associations: Intact Description of abnormal or psychotic thoughts: Makes no threats against himself or others, does not appear to be responding to internal stimuli. Denies hearing voices today but has recent history of hearing intermittent voices telling him he is worthless, denies audio hallucinations at time of interaction, denies visual hallucinations, denies urge to engage in self-injurious behavior, denies bizarre or paranoid ideation. Judgment: Fair, continues to improve Insight: Fair, is improving during treatment Orientation: Alert and orientated 3 Recent and remote memory: Intact Attention span and concentration: Intact Fund of knowledge: Adequate Mood: "I'm doing better I guess, but I feel very strongly that I don't want to go back to Ibis's house and maybe I should send her an email to let her know." Patient presents as anxious but less depressed today, mood lability noted Affect: Blunted but brightens DIAGNOSES: Unspecified mood disorder, rule out bipolar disorder, rule out MDD recurrent severe with psychotic features, rule out PTSD, rule out personality disorder, ADHD reported history, ASSESSMENT: 25-year-old man who was admitted to the inpatient psychiatric unit he has a history of trauma and poor family relational systems, has indicated he does not want to return to prior living arrangement with [facility] payee. Patient and leave coordinator are working with DSS, APS, and pillowcase sewer worker on discharge plan, referral being made to TLS. Patient remains agreeable with following up outpatient treatment at [facility]. Patient has notable history of medication noncompliance and also presents with potential hepatic challenges and is being monitored for potential cardiac challenges. Patient indicates current medication regimen is working well, denies medication side effects, verbalizes awareness of the potential risks and side effects of medications including lithium toxicity and as related to hepatic impairment, further verbalizes awareness of routine follow-up lab work. Patient denies suicidal and homicidal ideation is able to verbalize awareness of how to access supportive services on unit if needed, is aware he is meeting with TLS tomorrow and that discharge is likely to occur after that meeting. Will continue to monitor patient's response to medications and monitor for side effects, and will evaluate patient safety and discharge readiness. flow coordinator is is working with DSS worker on discharge plan, referral being made to TLS with intake appointment scheduled for Monday, patient is agreeable with following up outpatient treatment at [facility]. MANAGEMENT PLAN: Continue Latuda 40 mg po at 18:00. Continue Sublimity 300 mg po BID, trazodone 200 mg po hs PRN insomnia, and hydroxyzine 25 mg po hs PRN insomnia Maintain safety precautions Patient to attend groups and participate in unit programming to develop coping strategies Engage patient in discharge planning process and arrange meeting with support system to ensure safe discharge planning when appropriate Patient to follow up with PCM upon discharge TIME SPENT: 35 minutes. Vital Signs Vital Signs Date Time Temp Pulse Resp B/P Pulse Ox O2 Delivery O2 Flow Rate FiO2 07/25/16 12:00 97.5 103 16 111/53 07/24/16 06:21 Room Air 07/23/16 18:00 99 Current Medications Current Medications Acetaminophen (Tylenol Tab) 650 mg Q6HP PRN PO HEADACHE or DISCOMFORT Last administered on 07/25/16 10:58; Start 07/14/16 at 19:45; Stop 08/13/16 at 19:44 Al Hydrox/Mg Hydrox/Simethicone (Mylanta) 30 ml Q4HP PRN PO HEARTBURN/ INDIGESTION; Start 07/14/16 at 19:45; Stop 08/13/16 at 19:44 Albuterol Sulfate (Proventil, Ventolin Hfa) 2 puff Q4HP PRN INH SHORTNESS OF BREATH Last administered on 07/20/16 17:41; Start 07/14/16 at 19:45; Stop at 19:44 Amoxicillin/ Clavulanate Potassium (Augmentin) 875 mg BID PO Last administered on 07/24/16 08:08; Start 07/15/16 at 09:00; Stop 07/24/16 at 20:59; Status DC Chlorhexidine Gluconate (Peridex Oral Rinse) 15 ml TID SSP Last administered on 07/25/16 15:23; Start 07/15/16 at 09:00; Stop 08/14/16 at 08:59 Docusate Sodium (Colace) 200 mg DAILY PO Last administered on 07/25/16 08:05; Start 07/15/16 at 09:00; Stop 08/14/16 at 08:59 Famotidine (Pepcid) 20 mg BID PO Last administered on 07/25/16 08:05; Start at 21:00; Stop 08/13/16 at 20:59 Ferrous Sulfate (Ferrous Sulfate) 325 mg BID PO Last administered on 07/25/16 08:05; Start 07/14/16 at 21:00; Stop 08/13/16 at 20:59 Fexofenadine HCl (Enriqueta) 60 mg DAILY PO Last administered on 07/25/16 08:05 ; Start 07/15/16 at 09:00; Stop 08/14/16 at 08:59 Fluticasone Propionate (Flonase 0.05% Nasal [place]) 2 spray DAILY NA Last administered on 07/25/16 08:04; Start 07/15/16 at 09:00; Stop 08/14/16 at 08:59 Home Med (Med Rec Complete!) ASDIRECTED XX ; Start 07/14/16 at 15:00; Stop at 15:00; Status DC Hydroxyzine HCl (Atarax) 25 mg QHSP PRN PO INSOMNIA Last administered on 23:36; Start 07/14/16 at 19:45; Stop 08/13/16 at 19:44 Ketoconazole (Nizoral) 1 dose DAILY TOP ; Start 07/26/16 at 09:00; Stop 08/21/16 at 08:59 Ketoconazole (Nizoral) 1 dose DAILY TOP Last administered on 07/24/16 08:09; Start 07/22/16 at 09:00; Stop 07/25/16 at 10:30; Status DC Levothyroxine Sodium (Synthroid) 0.025 mg DAILY@06 PO Last administered on 07/25 05:48; Start 07/18/16 at 06:00; Stop 08/17/16 at 05:59 Lidocaine (Lidoderm Patch) 1 patch DAILY TD Last administered on 07/25/16 08: 05; Start 07/22/16 at 09:00; Stop 08/21/16 at 08:59 Sublimity Carbonate (Sublimity Carbonate) 300 mg BID PO Last administered on 08:05; Start 07/14/16 at 21:00; Stop 08/13/16 at 20:59 Lurasidone HCl (Latuda) 20 mg DAILY@18 PO Last administered on 07/21/16 17:37; Start 07/16/16 at 18:00; Stop 07/22/16 at 14:30; Status DC Lurasidone HCl (Latuda) 40 mg DAILY@18 PO Last administered on 07/24/16 18:24; Start 07/22/16 at 18:00; Stop 08/21/16 at 17:59 Magnesium Hydroxide (Milk Of Magnesia) 30 ml DAILYPRN PRN PO CONSTIPATION; Start 07/14/16 at 19:45; Stop 08/13/16 at 19:44 Menthol/Methyl Salicylate (Bengay Cream) 1 dose BID TOP ; Start 07/18/16 at 21:00 ; Stop 07/18/16 at 21:00; Status DC Menthol/Methyl Salicylate (Bengay Cream) 1 dose BIDP PRN TOP PAIN; Start at 19:45; Stop 07/15/16 at 11:36; Status DC Menthol/Methyl Salicylate (Bengay Cream) 1 dose TID TOP Last administered on 20:41; Start 07/15/16 at 09:00; Stop 08/14/16 at 08:59 Naproxen (Naprosyn) 250 mg BID PO Last administered on 07/21/16 08:09; Start at 09:00; Stop 07/21/16 at 12:19; Status DC Nicotine (Nicoderm Cq 14mg) 1 patch DAILY TD Last administered on 07/25/16 08: 05; Start 07/15/16 at 09:00; Stop 08/14/16 at 08:59 Non-Formulary Medication ( See Comment Field Below ) REMOVE LIDODERM PATCH DAILY@21 XX Last administered on 07/24/16 20:41; Start 07/22/16 at 21:00; Stop 08/21/16 at 20:59 Nystatin (Mycostatin) 5 ml QID SS Last administered on 07/25/16 17:10; Start 07/21/16 at 13:00; Stop 07/28/16 at 12:59 Polyethylene Glycol (Miralax) 1 pkt Q2D PO ; Start 07/16/16 at 09:00; Stop at 08:59 Salmeterol Xinafoate/ Fluticasone (Advair Diskus 100/50) 1 puff BID INH Last administered on 07/25/16 08:04; Start 07/15/16 at 09:00; Stop 08/14/16 at 08:59 Trazodone HCl (Desyrel) 50 mg QHSP PRN PO INSOMNIA; Start 07/14/16 at 19:45; Stop 07/15/16 at 14:02; Status DC Trazodone HCl (Desyrel) 200 mg QHSP PRN PO INSOMNIA Last administered on 22:00; Start 07/15/16 at 14:00; Stop 08/14/16 at 13:59 Allergies Coded Allergies: Amitriptyline (Verified Allergy, Mild, Rash, 11/26/14) Thioridazine (Verified Allergy, Mild, EPS, 11/26/14) Haloperidol (Verified Allergy, Unknown, 07/14/16) Loxapine (Verified Allergy, Unknown, 07/14/16) Mirtazapine (Verified Allergy, Unknown, 07/14/16) Risperidone (Verified Adverse Reaction, Unknown, EPS, 05/13/16) Indu Flores Jul 25, 2016 17:54
[2016-07-25 18:00] VITALS: BP 116/56
[2016-07-25] MEDS ORDERED: TRAZ10TA PO (18:03)
[2016-07-25] MEDS ORDERED: LITH300C PO (18:03)
[2016-07-25] MEDS ORDERED: LATU40TA PO (18:03)
[2016-07-25] MEDS: **NOTE PATIENT COMMENT** MISC XX SCH (20:28)
[2016-07-25 21:00] VITALS: BP 120/58
[2016-07-25] MEDS: traZODone 100 MG TAB PO PRN (22:09)
[2016-07-26] MEDS: LEVOTHYROXINE 0.025 MG TAB (25 MCG) PO SCH (05:07)
[2016-07-26] MEDS: ACETAMINOPHEN TAB 650MG DOSE (2X325MG) PO PRN (05:08)
[2016-07-26 06:19] VITALS: BP 100/61
[2016-07-26] MEDS: FLUTICASONE PROP 0.05% NASAL SPRAY 16 GM (FLONASE) SCH (08:00)
[2016-07-26] MEDS: ANALGESIC BALM CRM 120 GM TOP SCH (08:00)
[2016-07-26] MEDS: CHLORHEXIDINE GLUCONATE 0.12 % 15ML UDC (PERIDEX ORAL RINSE) SSP SCH (08:00)
[2016-07-26] MEDS: NYSTATIN 500,000 U/5 ML SUSP UDC SS SCH ×2 (08:00→12:33)
[2016-07-26] MEDS: ADVAIR DISKUS 100/50 INH PWD INH SCH (08:00)
[2016-07-26] MEDS: FERROUS SULFATE 325MG TAB PO SCH (08:01)
[2016-07-26] MEDS: FEXOFENADINE 60 MG TAB PO SCH (08:01)
[2016-07-26] MEDS: DOCUSATE SODIUM 100 MG CAP PO SCH (08:01)
[2016-07-26] MEDS: LITHIUM CARBONATE 300 MG CAP PO SCH (08:01)
[2016-07-26] MEDS: FAMOTIDINE 20 MG TAB PO SCH (08:01)
[2016-07-26] MEDS: NICOTINE 14 MG/24 HR TRANSDERMAL TD SCH (08:02)
[2016-07-26] MEDS: LIDOCAINE 5% (LIDODERM) PATCH TD SCH (08:02)
[2016-07-26] MEDS: MIRALAX *UNIT DOSE* 17GM PACKET PO SCH (08:06)
[2016-07-26] MEDS ORDERED: NICO14PA TD (08:51)
[2016-07-26] MEDS ORDERED: NYST50SS SS (08:51)
[2016-07-26] MEDS ORDERED: LEVO25TA5 PO (08:51)
[2016-07-26] MEDS ORDERED: LIDO1OIN2 TOP (08:51)
[2016-07-26] MEDS ORDERED: KETOCONAZOLE 2% CREAM TOP SCH (09:00)
[2016-07-26] MEDS ORDERED: HYDR25T PO (09:34)
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
== END 2016-07-26 12:20 | disposition home or self-care (01) | DRG 753 ==
LOC: M ED 14:41 → M ED INP 17:13 → M PSY 18:32
PROVIDERS: ADMIT Psychiatry & Neurology Psychiatry; ATTEND Psychiatry & Neurology Child & Adolescent Psychiatry
DX: F39 Unspecified mood [affective] disorder (principal); E03.9 Hypothyroidism, unspecified; F17.210 Nicotine dependence, cigarettes, uncomplicated; D50.9 Iron deficiency anemia, unspecified; F60.3 Borderline personality disorder; F43.12 Post-traumatic stress disorder, chronic; Z62.810 Personal history of physical and sexual abuse in childhood; J45.909 Unspecified asthma, uncomplicated; F90.9 Attention-deficit hyperactivity disorder, unspecified type; K59.00 Constipation, unspecified; G47.00 Insomnia, unspecified; K21.9 Gastro-esophageal reflux disease without esophagitis; M54.5 Low back pain; M25.561 Pain in right knee; M54.2 Cervicalgia; M25.562 Pain in left knee; Z79.899 Other long term (current) drug therapy; Z88.8 Allergy status to other drugs, medicaments and biological substances; Z91.5 Personal history of self-harm; B37.0 Candidal stomatitis

== ENCOUNTER 2016-08-09 21:34 | Inpatient (IN) | payer OTHER ==
[~2016-08-09] VITALS: Ht 182.9 cm; Wt 94.6 kg
[~2016-08-09 21:34] MED LIST changes: +ACET50TAOT PO; +BENCRE EXT; +COLA100C3 PO; +ENEMENE3 PR; +HYDR1CAP25 PO; +LATU40TA PO; +LEVO25TA5 PO; +LIDO1OIN2 TOP; +LITH300T2 PO; +MIRA33504 PO; +NICO14PA TD; +NYST50SS SS; +OMEP20TA PO; +TRAZ10TA PO
[2016-08-09 22:52] LABS: MEAN CORPUSCULAR HEMOGLOBIN 33.5 pg (27.0-33.0); MEAN CORPUSCULAR HGB CONC 32.7 g/dl (32.0-36.5); MEAN CORPUSCULAR VOLUME 102.5 fl (80.0-96.0); RED CELL DISTRIBUTION WIDTH 13.4 % (11.5-14.5); WHITE BLOOD COUNT 7.4 K/mm3 (4.0-10.0)
[2016-08-09 23:13] LABS: METHADONE URINE NEGATIVE (NEGATIVE)
[2016-08-09 23:14] LABS: ALBUMIN 3.3 GM/DL (3.2-5.2); ANION GAP 7 MEQ/L (8-16); AST/SGOT 16 U/L (15-37); BILIRUBIN,DIRECT < 0.1 MG/DL (0.0-0.2); CARBON DIOXIDE LEVEL 28 MEQ/L (21-32); CHLORIDE LEVEL 105 MEQ/L (98-107); POTASSIUM SERUM 4.1 MEQ/L (3.5-5.1); SODIUM LEVEL 140 MEQ/L (136-145)
[2016-08-09 23:47] LABS: ALBUMIN/GLOBULIN RATIO 1.18 (1.00-1.93); ALKALINE PHOSPHATASE 75 U/L (45-117); ALT/SGPT 22 U/L (12-78); BILIRUBIN,TOTAL 0.1 MG/DL (0.2-1.0); BLOOD UREA NITROGEN 24 MG/DL (7-18); CREATININE FOR GFR 0.79 MG/DL (0.70-1.30); GLOMERULAR FILTRATION RATE > 60.0 (>60); GLUCOSE, FASTING 99 MG/DL (70-105); LITHIUM LEVEL < 0.20 MEQ/L (0.60-1.20); TOTAL PROTEIN 6.1 GM/DL (6.4-8.2)
[2016-08-10] MEDS ORDERED: LIDO1OIN2 TOP (04:09)
[2016-08-10] MEDS ORDERED: LITH300C PO (04:09)
[2016-08-10] MEDS ORDERED: TRAZ100T4 PO (04:09)
[2016-08-10] MEDS ORDERED: HYDR25T PO (04:09)
[2016-08-10] MEDS ORDERED: SYNT25TA PO (04:09)
[2016-08-10] MEDS ORDERED: LATU40TA PO (04:09)
[2016-08-10 04:10] VITALS: BP 133/75
[2016-08-10] MEDS ORDERED: traZODone 100 MG TAB PO PRN (04:15)
[2016-08-10] MEDS ORDERED: MAALOX 30 ML SUSP *UDC PO PRN (04:15)
[2016-08-10] MEDS ORDERED: MOM 30ML SUSPENSION UDC PO PRN (04:15)
[2016-08-10] MEDS ORDERED: ALBUTEROL 90 MCG/ACT 8GM HFA INHALER INH PRN (04:15)
[2016-08-10] MEDS: LEVOTHYROXINE 0.025 MG TAB (25 MCG) PO SCH (06:42)
[2016-08-10] MEDS: MIRALAX *UNIT DOSE* 17GM PACKET PO SCH (09:00)
[2016-08-10] MEDS: OMEPRAZOLE 20 MG CAP PO SCH (09:15)
[2016-08-10] MEDS: LURASIDONE HCL 40 MG TAB (LATUDA) PO SCH (09:15)
[2016-08-10] MEDS: NICOTINE 21MG/24HR 1 EA TRANSDERMAL TD SCH (09:15)
[2016-08-10] MEDS: FERROUS SULFATE 325MG TAB PO SCH ×2 (09:15→21:27)
[2016-08-10] MEDS: LITHIUM CARBONATE 300 MG CAP PO SCH ×2 (09:15→21:27)
[2016-08-10] MEDS: raNITIdine SYRUP 150 MG/10 ML UDC PO SCH ×2 (09:15→21:27)
[2016-08-10] MEDS: FLUTICASONE PROP 0.05% NASAL SPRAY 16 GM (FLONASE) SCH (09:15)
[2016-08-10] MEDS: ADVAIR DISKUS 100/50 INH PWD INH SCH ×2 (09:15→21:27)
[2016-08-10] MEDS: FEXOFENADINE 60 MG TAB PO SCH (09:15)
[2016-08-10] MEDS: DOCUSATE SODIUM 100 MG CAP PO SCH (09:15)
[2016-08-10] MEDS: LIDOCAINE 5% OINT 30 GM TOP SCH (09:16)
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
--- NOTE | 2016-08-10 11:58 | HPEPDOC ---
Medical History and Physical Date of Admission Aug 10, 2016 at 03:57 History and Physical PCP: Sabra HOBSON ATTENDING: Dr. Srinivas Bauer HPI: 25yoM admitted to [facility] for unspecified depressive disorder, being medically examined today. No acute medical complaints today. Patient states he has an appointment this week with Dr. Edwards in [place] for follow-up of elevated LFTs. Denies any fevers, chills, weakness, fatigue, [place], CP, SOB, cough , palpitations, abdominal pain, N/V/D or changes in bowel or bladder habits. PMHx: Asthma Bipolar disorder ADD Intermittent explosive disorder Chronic hyperextension of the knees Iron deficiency Chronic constipation Chronic back pain Lumbar spine x-ray and/17 and unremarkable. Chronic knee pain Chronic poor dentition Insomnia allergic rhinitis GERD Tobacco use History of elevated LFTs, following with gastroenterology in [place] Dr Edwards. Liver biopsy completed 06/15/16 [facility]. Patient to go for second opinion at [facility], appointment pending per patient. PSHX: Colonoscopy. Dr Edwards 11/30 Tonsillectomy/adenoidectomy Tympanostomy tubes Bilateral myringotomy SOCHX: Resides in: [facility] Marital Status: Single Kids: None Employment: Unemployed Tobacco use: One pack per day ETOH: Denies Illicit Drugs: Denies IV Drug Use: Denies Tattoos done unprofessionally: Denies FAMHX: Mother: Alive, COPD, CHF. Father: Alive, COPD Siblings: One brother Alive, well Children: None Unexpected deaths due to medical reasons: None. ROS: As noted in HPI, otherwise 11pt ROS of systems reviewed and remarkable only for ongoing workup of elevated LFTs. Patient states he has a follow-up appointment with Dr. Edwards this week. The patient states he has been eating and drinking. He reports no nausea, vomiting, diarrhea, and states his constipation has been controlled with his bowel regimen. PE: GEN: 25 yo M, appears stated age. Thin appearing. No acute distress. Alert and oriented x 3. Pleasant, interactive. HEENT: Normocephalic, atraumatic. Pupils are equal, round, and reactive to light. Extraocular movements are intact. No nystagmus appreciated. Sclera are nonicteric. Conjunctiva without injection. Nose midline. Nasal turbinates without bogginess. EACs both patent BL. TMs both visualized and cordero with good cone of light, no bulging or erythema. No facial asymmetry. Moist mucous membranes. Dentition poor. There is some mild erythema noted around the lower posterior molars. Multiple dental caries are noted. Pharynx pink and moist, no cobblestoning. Neck supple, trachea midline. No lymphadenopathy or thyromegaly appreciated. CHEST: Regular rate and rhythm, +S1, +S2 LUNGS: Clear to auscultation bilaterally. No wheezes, rales, or rhonchi. Breathing appears symmetric and easy. Patient is speaking in full sentences. No accessory muscle use. ABD: Round, soft, non-tender, non-distended. +Bowel sounds throughout. No rebound or guarding. No costovertebral angle tenderness. EXT: Pulses 2+ bilaterally dorsalis pedis and radial. No lower extremity edema appreciated. SKIN: [place], dry, warm. Capillary refill <2sec. No rashes. NEURO: Alert and oriented x 3. Cranial nerves III-XII are intact. No focal deficits appreciated. EK07/16/16. Normal sinus rhythm Normal EKG No change since prior tracing of 08/13/2013 A&P: 25yoM admitted to [facility] for unspecified depressive disorder 1. Psych. Plan per Psychiatry. EKG on file. 2. Nicotine dependence. Patch available. 3. Asthma. Continue Advair 100/50 one puff twice a day. Continue albuterol 2 puffs every 4 hours as needed. 4. Follow up with PCP on discharge. 5. Chronic constipation. Continue bowel care as per outpatient regimen. 6. Hypothyroid. Continue Synthroid 25 g daily. TSH within normal limits 7. Anemia. Continue iron supplement 325 mg by mouth twice a day. Hemoglobin 12.6. 8. Allergic rhinitis. Continue fexofenadine 60 mg daily and Flonase 2 sprays each nostril daily. 9. GERD. Continue Prilosec 20 mg daily and ranitidine 150 mg by mouth twice a day. 10. Chronic back pain/knee pain. Continue with lidocaine cream as needed. 11. History of elevated LFTs. Pt is following with Dr Edwards in [place]. Confirm appointment with Dr Edwards which patient states was scheduled for this week. Reschedule if needed. LFTs are currently within normal limits. 12. Poor dentition. Tylenol as needed. Arrange dental care at discharge. 13. History of Poor nutrition. Patient with history of poor nutrition and previously using ensure 3 times a day. BMI 28.5, improved. 14. Ed staff member was present throughout exam Vital Signs Vital Signs Date Time Temp Pulse Resp B/P (MAP) Pulse Ox O2 Delivery O2 Flow Rate FiO2 08/10/16 04:10 97.6 95 20 133/75 (94) Room Air 08/09/16 21:35 96 Laboratory Data Labs 24H Laboratory Tests 2 08/09/16 22:43: Anion Gap 7L, Glomerular Filtration Rate > 60.0, Calcium Level 8.0L, Aspartate Amino Transf (AST/SGOT) 16, Alanine Aminotransferase (ALT/SGPT) 22, Alkaline Phosphatase 75, Total Bilirubin 0.1L, Direct Bilirubin < 0.1, Total Protein 6.1L , Albumin 3.3, Albumin/Globulin Ratio 1.18, Thyroid Stimulating Hormone (TSH) 1.820, Salicylates Level < 1.7L, Urine Amphetamines Screen NEGATIVE, Urine Benzodiazepines Screen NEGATIVE, Urine Opiates Screen NEGATIVE, Urine Methadone Screen NEGATIVE, Acetaminophen Level 2.7L, Urine Barbiturates Screen NEGATIVE, Urine Phencyclidine Screen NEGATIVE, [place] Level < 0.20L, Urine Cocaine Metabolite Screen NEGATIVE, Urine Cannabinoids Screen NEGATIVE, Ethyl Alcohol Level < 0.003 CBC/BMP Laboratory Tests 08/09/16 22:43 Red Blood Count 3.75 L, Mean Corpuscular Volume 102.5 H, Mean Corpuscular Hemoglobin 33.5 H, Mean Corpuscular Hemoglobin Concent 32.7, Red Cell Distribution Width 13.4 Home Medications Scheduled (Flonase Allergy Relief) 50 Mcg/Act Spr, 2 SPRAYS NA DAILY for allergy Docusate Sodium (Colace) 100 Mg Cap, 200 MG PO DAILY for CONSTIPATION Ferrous Sulfate (Ferrous Sulfate) 325 Mg Tab, 325 MG PO BID for supplement Fexofenadine HCl (Fexofenadine HCl) 60 Mg Tab, 60 MG PO DAILY for allergy Levothyroxine Sodium (Synthroid) 25 Mcg Tab, 25 MCG PO QAM for HYPOTHYROIDISM [place] Carbonate ([place] Carbonate) 300 Mg Cap, 300 MG PO BID for MOOD Lurasidone Hydrochloride (Latuda) 40 Mg Tab, 40 MG PO DAILY for MOOD Nicotine (Nicotine Transdermal Syst) 14 Mg/24 Hr Dis, 1 PATCH TD DAILY for SMOKING CESSATION Omeprazole (Omeprazole) 20 Mg Tab, 20 MG PO DAILY for GERD Polyethylene Glycol (Miralax) 1 Pow Pow, 17 GM PO DAILY for CONSTIPATION Ranitidine HCl (Ranitidine HCl) 150 Mg Tab, 1 TAB PO BID for GERD Salmeterol/Fluticasone (Advair Diskus 100-50 Mcg/Dose) 28 Puff/Inhaler Aerp, 1 PUFF INH BID for ASTHMA Scheduled PRN Albuterol Sulfate (Ventolin Hfa) 200 Puff/8 Gm Aers, 2 PUFF INH Q4H PRN for SHORTNESS OF BREATH Hydroxyzine HCl (Hydroxyzine HCl) 25 Mg Tab, 25 MG PO QHS PRN for SLEEP Lidocaine HCl (Lidocaine 5% Ointment) 1 Dose/35.44 Gm Oint, 0 TOP BID PRN for PAIN APPLIED TO LOWER BACK Trazodone HCl (Trazodone HCl) 100 Mg Tab, 200 MG PO QHS PRN for SLEEP Allergies Coded Allergies: Amitriptyline (Verified Allergy, Mild, Rash, 11/26/14) Thioridazine (Verified Allergy, Mild, EPS, 11/26/14) Haloperidol (Verified Allergy, Unknown, 07/14/16) Loxapine (Verified Allergy, Unknown, 07/14/16) Mirtazapine (Verified Allergy, Unknown, 07/14/16) Risperidone (Verified Adverse Reaction, Unknown, EPS, 05/13/16) Brandy Davis Aug 10, 2016 11:58
[2016-08-10 18:00] VITALS: BP 107/59
[2016-08-10] MEDS: ACETAMINOPHEN TAB 650MG DOSE (2X325MG) PO PRN (21:28)
[2016-08-11] MEDS: LEVOTHYROXINE 0.025 MG TAB (25 MCG) PO SCH ×2 (06:05→09:23)
[2016-08-11 06:19] VITALS: BP 134/70
[2016-08-11] MEDS: raNITIdine SYRUP 150 MG/10 ML UDC PO SCH ×2 (09:00→21:24)
[2016-08-11] MEDS: MIRALAX *UNIT DOSE* 17GM PACKET PO SCH (09:00)
[2016-08-11] MEDS: LIDOCAINE 5% OINT 30 GM TOP SCH (09:00)
[2016-08-11] MEDS: OMEPRAZOLE 20 MG CAP PO SCH (09:21)
[2016-08-11] MEDS: FERROUS SULFATE 325MG TAB PO SCH ×2 (09:22→21:24)
[2016-08-11] MEDS: LITHIUM CARBONATE 300 MG CAP PO SCH ×2 (09:22→21:24)
[2016-08-11] MEDS: DOCUSATE SODIUM 100 MG CAP PO SCH (09:23)
[2016-08-11] MEDS: LURASIDONE HCL 40 MG TAB (LATUDA) PO SCH (09:23)
[2016-08-11] MEDS: ADVAIR DISKUS 100/50 INH PWD INH SCH ×2 (09:25→21:24)
[2016-08-11] MEDS: FLUTICASONE PROP 0.05% NASAL SPRAY 16 GM (FLONASE) SCH (09:25)
[2016-08-11] MEDS: NICOTINE 21MG/24HR 1 EA TRANSDERMAL TD SCH (09:26)
[2016-08-11] MEDS: FEXOFENADINE 60 MG TAB PO SCH (09:27)
[2016-08-11] MEDS: ACETAMINOPHEN TAB 650MG DOSE (2X325MG) PO PRN (11:02)
[2016-08-11 18:00] VITALS: BP 124/59
--- NOTE | 2016-08-11 18:46 | IPNPDOC ---
[facility] Progress Note Progress Note DATE OF SERVICE: 08/11/16 HISTORY: Patient is a 25-year-old male who was brought in to [facility] by the [place] police after reportedly making statements he was going to kill himself with a knife after a verbal disagreement with a friend. Patient reiterates today he was "joking" and comments were misinterpreted by friend. Patient denies ever having plan or intent to harm self, reiterates he does not feel he needs to be in the hospital. Patient indicates he had been experiencing symptoms of a cold which are better today, denies symptoms of anxiety and depression, denies audiovisual hallucinations, denies suicidal and homicidal ideation, denies urge to engage in self-injurious behavior. Patient states current medication regimen is working well and denies need for dosing adjustments, notes he missed one follow- up appointment post last discharge from hospital at [facility], states he intends to be medication compliant after discharge. Patient indicates he plans to return to the [facility], notes he felt comfortable and safe there, and remains motivated to enter the [facility] housing program. Patient indicates his relationship with his new payee is "good," notes he has a girlfriend in the [place] area and describes relationship as positive and supportive. Patient denies challenges with energy and concentration, describes appetite as "fine," states he has been sleeping well and denies nightmares symptoms. Patient denies physical pain and presents with no signs of acute distress at time of interaction. Medication history: Patient has been tried on number of different medications including amitriptyline, haloperidol, loxapine, mirtazapine, risperidone and Mellaril as well as Depakote in the past. They have either failed to have success or have had negative side effects of dystonia. VITAL SIGNS: See below. NEW TEST RESULTS: No new results MEDICAL HISTORY: Patient has history of asthma, chronic hyperextension of knees , iron deficiency, chronic constipation, chronic back pain, chronic knee pain, poor dentition, allergic rhinitis, GERD, history of elevated LFTs, following with gastroenterology in [place]. Liver biopsy completed 06/15/16, undergoing hepatitis evaluation. Patient to go for second opinion [facility], appointment pending per patient. Labs on admission indicated low RBC, Hgb, HCT, anion gap, calcium, total bilirubin, total protein, and elevated MCV, MCH, BUN. 07/14/16 lithium level 0.74 UDS negative on admission 07/18/16 cervical spine x-ray - Mild curvature convex to the right could indicate some degree of muscle spasm. Otherwise unremarkable cervical spine series. 07/18/16 knee x-ray - Negative bilateral knee series 07/19/16 pain management consult completed with diagnosis of chronic generalized joint pain Evaluated at last stay by PA during stay for mouth discomfort and lower extremity edema, was addressed by PA and has resolved, attributed lower extremity edema to chronic NSAID use 08/09/16 lithium level 0.20 CURRENT MEDICATIONS: See below. MENTAL STATUS EXAMINATION: General: Presents with adequate hygiene, makes good eye contact, dressed in hospital clothing, ambulates with steady gait, appears stated age, is pleasant and cooperative Speech: Of normal rate, rhythm, volume, spontaneous and fluid, coherent Thought processes: Linear and logical Thought content: Rational, logical Abstract reasoning: Intact Description of associations: Intact Description of abnormal or psychotic thoughts: Denies suicidal and homicidal ideation, is not responding to internal stimuli, denies audiovisual hallucinations, does not endorse bizarre or paranoid ideation, exhibits no preoccupation with violence or obsessions Judgment: Limited Insight: Limited. Some improvement noted Orientation: Alert and orientated 3 Recent and remote memory: Intact Attention span and concentration: Intact Fund of knowledge: Adequate Mood: "I'm fine, I really don't think I need to be here." Patient denies anxiety and depression, no mood lability noted Affect: Constricted DIAGNOSES: Unspecified mood disorder, rule out bipolar disorder, rule out MDD recurrent severe with psychotic features, rule out PTSD, rule out personality disorder, ADHD reported history ASSESSMENT: Patient is more visible today, is adjusting to unit, has been observed interacting with peers, and has begun attending groups. Patient reiterates today he does not feel he needs to be in the hospital, minimizes suicidal statements he made "joking," again states he feels his friend misinterpreted his intentions. Patient indicates current medication regimen is effective and denies need for medication changes or dosing adjustments, denies medication side effects. Patient denies suicidal and homicidal ideation and verbalizes awareness of how to access supportive services on the unit if needed. Will monitor patient's response to inpatient treatment, medications, and medication side effects. Will also evaluate patient's safety, resolution of suicidal ideation, and discharge readiness. Patient reiterates today when prepared for discharge he would like to return to [facility] while he waits for access to [facility] housing. 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 MANAGEMENT PLAN: Continue lithium 300 mg po BID, latuda 40 mg po at 1800, and trazodone 200 mg po HS PRN insomnia Maintain safety precautions Patient to attend groups and participate in unit programming to develop coping strategies Engage patient in discharge planning process and meeting with support system to ensure safe discharge planning when appropriate Patient to follow up with PCM upon discharge TIME SPENT: 25 minutes. Vital Signs Vital Signs Date Time Temp Pulse Resp B/P (MAP) Pulse Ox O2 Delivery O2 Flow Rate FiO2 08/11/16 18:00 98.9 100 16 124/59 (80) Room Air 08/09/16 21:35 96 Current Medications Current Medications Acetaminophen (Tylenol Tab) 650 mg Q6HP PRN PO HEADACHE or DISCOMFORT Last administered on 08/11/16 11:02; Start 08/10/16 at 04:15; Stop 09/09/16 at 04:14 Al Hydrox/Mg Hydrox/Simethicone (Mylanta) 30 ml Q4HP PRN PO HEARTBURN/ INDIGESTION; Start 08/10/16 at 04:15; Stop 09/09/16 at 04:14 Albuterol Sulfate (Proventil, Ventolin Hfa) 2 puff Q4HP PRN INH SHORTNESS OF BREATH; Start 08/10/16 at 04:15; Stop 09/09/16 at 04:14 Docusate Sodium (Colace) 200 mg DAILY PO Last administered on 08/11/16 09:23; Start 08/10/16 at 09:00; Stop 09/09/16 at 08:59 Ferrous Sulfate (Ferrous Sulfate) 325 mg BID PO Last administered on 08/11/16 09:22; Start 08/10/16 at 09:00; Stop 09/09/16 at 08:59 Fexofenadine HCl (Enriqueta) 60 mg DAILY PO Last administered on 08/11/16 09:27 ; Start 08/10/16 at 09:00; Stop 09/09/16 at 08:59 Fluticasone Propionate (Flonase 0.05% Nasal [place]) 2 spray DAILY NA Last administered on 08/11/16 09:25; Start 08/10/16 at 09:00; Stop 09/09/16 at 08:59 Home Med (Med Rec Complete!) ASDIRECTED XX ; Start 08/10/16 at 04:15; Stop at 04:45; Status DC Levothyroxine Sodium (Synthroid) 0.025 mg DAILY@06 PO Last administered on 08/11 09:23; Start 08/10/16 at 06:00; Stop 09/09/16 at 05:59 Lidocaine HCl (Lidocaine 5% Oint) 1 dose DAILY TOP Last administered on 09:16; Start 08/10/16 at 09:00; Stop 09/09/16 at 08:59 [place] Carbonate ([place] Carbonate) 300 mg BID PO Last administered on 09:22; Start 08/10/16 at 09:00; Stop 09/09/16 at 08:59 Lurasidone HCl (Latuda) 40 mg DAILY@08 PO Last administered on 08/11/16 09:23 ; Start 08/10/16 at 08:00; Stop 09/09/16 at 07:59 Magnesium Hydroxide (Milk Of Magnesia) 30 ml DAILYPRN PRN PO CONSTIPATION; Start 08/10/16 at 04:15; Stop 09/09/16 at 04:14 Nicotine (Nicoderm Cq 21mg) 1 patch DAILY TD Last administered on 08/11/16 09: 26; Start 08/10/16 at 09:00; Stop 09/09/16 at 08:59 Omeprazole (PriLOSEC) 20 mg DAILY PO Last administered on 08/11/16 09:21; Start 08/10/16 at 09:00; Stop 09/09/16 at 08:59 Polyethylene Glycol (Miralax) 1 pkt DAILY PO ; Start 08/10/16 at 09:00; Stop at 08:59 Ranitidine HCl (Zantac) 150 mg BID PO Last administered on 08/10/16 21:27; Start 08/10/16 at 09:00; Stop 09/09/16 at 08:59 Salmeterol Xinafoate/ Fluticasone (Advair Diskus 100/50) 1 puff BID INH Last administered on 4/27/17at 09:25; Start 08/10/16 at 09:00; Stop 09/09/16 at 08:59 Trazodone HCl (Desyrel) 200 mg QHSP PRN PO INSOMNIA; Start 08/10/16 at 04:15; Stop 09/09/16 at 04:14 Allergies Coded Allergies: Amitriptyline (Verified Allergy, Mild, Rash, 11/26/14) Thioridazine (Verified Allergy, Mild, EPS, 11/26/14) Haloperidol (Verified Allergy, Unknown, 07/14/16) Loxapine (Verified Allergy, Unknown, 07/14/16) Mirtazapine (Verified Allergy, Unknown, 07/14/16) Risperidone (Verified Adverse Reaction, Unknown, EPS, 05/13/16) Indu Flores Aug 11, 2016 18:46
[2016-08-12] MEDS ORDERED: LEVOTHYROXINE 0.025 MG TAB (25 MCG) PO ONE (06:30)
[2016-08-12 06:44] VITALS: BP 112/57
[2016-08-12] MEDS: ADVAIR DISKUS 100/50 INH PWD INH SCH ×2 (08:41→21:21)
[2016-08-12] MEDS: OMEPRAZOLE 20 MG CAP PO SCH (08:41)
[2016-08-12] MEDS: FLUTICASONE PROP 0.05% NASAL SPRAY 16 GM (FLONASE) SCH (08:41)
[2016-08-12] MEDS: FEXOFENADINE 60 MG TAB PO SCH (08:41)
[2016-08-12] MEDS: NICOTINE 21MG/24HR 1 EA TRANSDERMAL TD SCH (08:41)
[2016-08-12] MEDS: DOCUSATE SODIUM 100 MG CAP PO SCH (08:42)
[2016-08-12] MEDS: raNITIdine SYRUP 150 MG/10 ML UDC PO SCH ×2 (08:42→21:00)
[2016-08-12] MEDS: FERROUS SULFATE 325MG TAB PO SCH ×2 (08:42→21:21)
[2016-08-12] MEDS: MIRALAX *UNIT DOSE* 17GM PACKET PO SCH (08:42)
[2016-08-12] MEDS: LURASIDONE HCL 40 MG TAB (LATUDA) PO SCH (08:42)
[2016-08-12] MEDS: LIDOCAINE 5% OINT 30 GM TOP SCH (08:42)
[2016-08-12] MEDS: LITHIUM CARBONATE 300 MG CAP PO SCH ×2 (08:42→21:21)
[2016-08-12] MEDS: ACETAMINOPHEN TAB 650MG DOSE (2X325MG) PO PRN (17:10)
[2016-08-12 18:00] VITALS: BP 108/53
--- NOTE | 2016-08-12 19:38 | IPNPDOC ---
[facility] Progress Note Progress Note DATE OF SERVICE: 08/12/16 HISTORY: Patient is a 25-year-old male who was brought in to [facility] by the [place] police after reportedly making statements he was going to kill himself with a knife after a verbal disagreement with a friend. Patient reiterates today he was "joking" and comments were misinterpreted by friend, denies ever having plan or intent to harm self. Patient symptoms of head cold have resolved, denies symptoms of anxiety and depression, denies audiovisual hallucinations, denies suicidal and homicidal ideation, denies urge to engage in self-injurious behavior. Patient states current medication regimen is working well and denies need for dosing adjustments. Importance of medication compliance were discussed with patient who verbalizes understanding. Patient indicates he plans to return to the [facility], notes he felt comfortable and safe there, and remains motivated to enter the [facility] housing program. Patient states girlfriend continues to visit him in the hospital and indicates relationship is remains positive and supportive. Patient denies challenges with energy and concentration, indicates appetite is stable, states he has been sleeping well sans trazodone, and denies nightmares symptoms. Patient denies physical pain and presents with no signs of acute distress at time of interaction. Medication history: Patient has been tried on number of different medications including amitriptyline, haloperidol, loxapine, mirtazapine, risperidone and Mellaril as well as Depakote in the past. They have either failed to have success or have had negative side effects of dystonia. VITAL SIGNS: See below. NEW TEST RESULTS: No new results MEDICAL HISTORY: Patient has history of asthma, chronic hyperextension of knees , iron deficiency, chronic constipation, chronic back pain, chronic knee pain, poor dentition, allergic rhinitis, GERD, history of elevated LFTs, following with gastroenterology in [place]. Liver biopsy completed 06/15/16, undergoing hepatitis evaluation. [place], appointment pending per patient. Labs on admission indicated low RBC, Hgb, HCT, anion gap, calcium, total bilirubin, total protein, and elevated MCV, MCH, BUN. 07/14/16 lithium level 0.74 UDS negative on admission 07/18/16 cervical spine x-ray - Mild curvature convex to the right could indicate some degree of muscle spasm. Otherwise unremarkable cervical spine series. 07/18/16 knee x-ray - Negative bilateral knee series 07/19/16 pain management consult completed with diagnosis of chronic generalized joint pain Evaluated at last stay by PA during stay for mouth discomfort and lower extremity edema, was addressed by PA and has resolved, attributed lower extremity edema to chronic NSAID use 08/09/16 lithium level 0.20 CURRENT MEDICATIONS: See below. MENTAL STATUS EXAMINATION: General: Presents with adequate hygiene, makes good eye contact, dressed in hospital clothing, ambulates with steady gait, appears stated age, is pleasant and cooperative Speech: Of normal rate, rhythm, volume, spontaneous and fluid, coherent Thought processes: Linear and logical Thought content: Rational, logical Abstract reasoning: Intact Description of associations: Intact Description of abnormal or psychotic thoughts: Denies suicidal and homicidal ideation, is not responding to internal stimuli, denies audiovisual hallucinations, does not endorse bizarre or paranoid ideation, exhibits no preoccupation with violence or obsessions Judgment: Limited, some improvement noted Insight: Limited, continues to improve Orientation: Alert and orientated 3 Recent and remote memory: Intact Attention span and concentration: Intact Fund of knowledge: Adequate Mood: "I'm fine, feeling pretty good." Patient denies anxiety and depression, no mood lability noted Affect: Constricted, brightens DIAGNOSES: Unspecified mood disorder, rule out bipolar disorder, rule out MDD recurrent severe with psychotic features, rule out PTSD, rule out personality disorder, ADHD reported history ASSESSMENT: Patient is more visible today, is adjusting to unit, has been observed interacting with peers, and has been attending most groups. Patient reiterates today he does not feel he needs to be in the hospital, minimizes suicidal statements he made "joking," again states he feels his friend misinterpreted his intentions. Patient indicates current medication regimen is effective and denies need for medication changes or dosing adjustments, denies medication side effects. Patient denies suicidal and homicidal ideation and verbalizes awareness of how to access supportive services on the unit if needed. Will monitor patient's response to inpatient treatment, medications, and medication side effects. Will also evaluate patient's safety, resolution of suicidal ideation, and discharge readiness. Patient reiterates today when prepared for discharge he would like to return to [facility] while he waits for access to [facility] housing. 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 MANAGEMENT PLAN: Continue lithium 300 mg po BID, latuda 40 mg po at 1800, and trazodone 200 mg po HS PRN insomnia Maintain safety precautions Patient to attend groups and participate in unit programming to develop coping strategies Engage patient in discharge planning process and meeting with support system to ensure safe discharge planning when appropriate Patient to follow up with PCM upon discharge TIME SPENT: 35 minutes. Vital Signs Vital Signs Date Time Temp Pulse Resp B/P (MAP) Pulse Ox O2 Delivery O2 Flow Rate FiO2 08/12/16 18:00 99.6 119 16 108/53 (71) 08/11/16 18:00 Room Air 08/09/16 21:35 96 Current Medications Current Medications Acetaminophen (Tylenol Tab) 650 mg Q6HP PRN PO HEADACHE or DISCOMFORT Last administered on 08/12/16 17:10; Start 08/10/16 at 04:15; Stop 09/09/16 at 04:14 Al Hydrox/Mg Hydrox/Simethicone (Mylanta) 30 ml Q4HP PRN PO HEARTBURN/ INDIGESTION; Start 08/10/16 at 04:15; Stop 09/09/16 at 04:14 Albuterol Sulfate (Proventil, Ventolin Hfa) 2 puff Q4HP PRN INH SHORTNESS OF BREATH; Start 08/10/16 at 04:15; Stop 09/09/16 at 04:14 Docusate Sodium (Colace) 200 mg DAILY PO Last administered on 08/12/16 08:42; Start 08/10/16 at 09:00; Stop 09/09/16 at 08:59 Ferrous Sulfate (Ferrous Sulfate) 325 mg BID PO Last administered on 08/12/16 08:42; Start 08/10/16 at 09:00; Stop 09/09/16 at 08:59 Fexofenadine HCl (Enriqueta) 60 mg DAILY PO Last administered on 08/12/16 08:41 ; Start 08/10/16 at 09:00; Stop 09/09/16 at 08:59 Fluticasone Propionate (Flonase 0.05% Nasal [place]) 2 spray DAILY NA Last administered on 08/12/16 08:41; Start 08/10/16 at 09:00; Stop 09/09/16 at 08:59 Home Med (Med Rec Complete!) ASDIRECTED XX ; Start 08/10/16 at 04:15; Stop at 04:45; Status DC Levothyroxine Sodium (Synthroid) 0.025 mg DAILY@06 PO Last administered on 08/11 09:23; Start 08/10/16 at 06:00; Stop 09/09/16 at 05:59 Lidocaine HCl (Lidocaine 5% Oint) 1 dose DAILY TOP Last administered on 09:16; Start 08/10/16 at 09:00; Stop 09/09/16 at 08:59 [place] Carbonate (Elrama Carbonate) 300 mg BID PO Last administered on 08:42; Start 08/10/16 at 09:00; Stop 09/09/16 at 08:59 Lurasidone HCl (Latuda) 40 mg DAILY@08 PO Last administered on 08/12/16 08:42 ; Start 08/10/16 at 08:00; Stop 09/09/16 at 07:59 Magnesium Hydroxide (Milk Of Magnesia) 30 ml DAILYPRN PRN PO CONSTIPATION; Start 08/10/16 at 04:15; Stop 09/09/16 at 04:14 Nicotine (Nicoderm Cq 21mg) 1 patch DAILY TD Last administered on 08/12/16 08: 41; Start 08/10/16 at 09:00; Stop 09/09/16 at 08:59 Omeprazole (PriLOSEC) 20 mg DAILY PO Last administered on 08/12/16 08:41; Start 08/10/16 at 09:00; Stop 09/09/16 at 08:59 Polyethylene Glycol (Miralax) 1 pkt DAILY PO ; Start 08/10/16 at 09:00; Stop at 08:59 Ranitidine HCl (Zantac) 150 mg BID PO Last administered on 08/11/16 21:24; Start 08/10/16 at 09:00; Stop 09/09/16 at 08:59 Salmeterol Xinafoate/ Fluticasone (Advair Diskus 100/50) 1 puff BID INH Last administered on 08/12/16 08:41; Start 08/10/16 at 09:00; Stop 09/09/16 at 08:59 Trazodone HCl (Desyrel) 200 mg QHSP PRN PO INSOMNIA; Start 08/10/16 at 04:15; Stop 09/09/16 at 04:14 Allergies Coded Allergies: Amitriptyline (Verified Allergy, Mild, Rash, 11/26/14) Thioridazine (Verified Allergy, Mild, EPS, 11/26/14) Haloperidol (Verified Allergy, Unknown, 07/14/16) Loxapine (Verified Allergy, Unknown, 07/14/16) Mirtazapine (Verified Allergy, Unknown, 07/14/16) Risperidone (Verified Adverse Reaction, Unknown, EPS, 05/13/16) Indu Flores Aug 12, 2016 19:38
[2016-08-13] MEDS: LEVOTHYROXINE 0.025 MG TAB (25 MCG) PO SCH (05:59)
[2016-08-13 06:17] VITALS: BP 121/71
[2016-08-13] MEDS: MIRALAX *UNIT DOSE* 17GM PACKET PO SCH (09:00)
[2016-08-13] MEDS: LIDOCAINE 5% OINT 30 GM TOP SCH (09:00)
[2016-08-13] MEDS: raNITIdine SYRUP 150 MG/10 ML UDC PO SCH ×2 (09:00→21:00)
[2016-08-13] MEDS: FEXOFENADINE 60 MG TAB PO SCH (09:01)
[2016-08-13] MEDS: FERROUS SULFATE 325MG TAB PO SCH ×2 (09:01→22:49)
[2016-08-13] MEDS: DOCUSATE SODIUM 100 MG CAP PO SCH (09:01)
[2016-08-13] MEDS: OMEPRAZOLE 20 MG CAP PO SCH (09:01)
[2016-08-13] MEDS: NICOTINE 21MG/24HR 1 EA TRANSDERMAL TD SCH (09:01)
[2016-08-13] MEDS: LURASIDONE HCL 40 MG TAB (LATUDA) PO SCH (09:01)
[2016-08-13] MEDS: LITHIUM CARBONATE 300 MG CAP PO SCH ×2 (09:01→22:49)
[2016-08-13] MEDS: ADVAIR DISKUS 100/50 INH PWD INH SCH ×2 (09:02→22:49)
[2016-08-13] MEDS: FLUTICASONE PROP 0.05% NASAL SPRAY 16 GM (FLONASE) SCH (09:02)
[2016-08-13] MEDS: ACETAMINOPHEN TAB 650MG DOSE (2X325MG) PO PRN (16:10)
[2016-08-13 18:00] VITALS: BP 135/75
--- NOTE | 2016-08-13 20:14 | IPN ---
DATE: 08/13/2016 Pillo Somers states to me today that he had a misunderstanding with a friend who thought he was going to kill himself but, in fact, it was not true. This 25-year-old male has been readmitted to [facility] emergency room (ER) by the [place] police after making statements he was going to kill himself with a knife after a verbal dispute with a friend. The patient reiterated that he was joking and comments were misinterpreted by friend, and he denied every having a plan to kill or harm himself. He denied symptoms of anxiety or depression. No auditory or visual hallucinations, suicidal or homicidal ideations, or the urge to engage in self-injurious behavior. The patient states the current medication regimen is working well and denied the need for dosage adjustments. Importance of medical compliance has been discussed with the patient who verbalized understanding. The patient plans to return to [facility] and notes that he has presently felt comfortable and safe there. MENTAL STATUS EXAMINATION: Speech is normal. Normal disturbances of thought process. No loose associations. No abnormal or psychotic thoughts. Judgment and insight are fair. He is fully oriented. Recent and remote memory are intact. Attention and concentration are intact. No disturbance of language. He has a full fund of knowledge. Mood is fair. Affect is neutral.
[2016-08-13] MEDS: traZODone 100 MG TAB PO PRN (22:51)
[2016-08-14] MEDS: LEVOTHYROXINE 0.025 MG TAB (25 MCG) PO SCH (06:01)
[2016-08-14 07:00] VITALS: BP 110/56
[2016-08-14] MEDS: MIRALAX *UNIT DOSE* 17GM PACKET PO SCH (08:38)
[2016-08-14] MEDS: raNITIdine SYRUP 150 MG/10 ML UDC PO SCH ×2 (08:39→21:00)
[2016-08-14] MEDS: LIDOCAINE 5% OINT 30 GM TOP SCH (08:40)
[2016-08-14] MEDS: ADVAIR DISKUS 100/50 INH PWD INH SCH ×2 (08:41→21:19)
[2016-08-14] MEDS: FEXOFENADINE 60 MG TAB PO SCH (08:42)
[2016-08-14] MEDS: FLUTICASONE PROP 0.05% NASAL SPRAY 16 GM (FLONASE) SCH (08:42)
[2016-08-14] MEDS: DOCUSATE SODIUM 100 MG CAP PO SCH (08:44)
[2016-08-14] MEDS: NICOTINE 21MG/24HR 1 EA TRANSDERMAL TD SCH (08:44)
[2016-08-14] MEDS: OMEPRAZOLE 20 MG CAP PO SCH (08:44)
[2016-08-14] MEDS: FERROUS SULFATE 325MG TAB PO SCH ×2 (08:45→21:19)
[2016-08-14] MEDS: LITHIUM CARBONATE 300 MG CAP PO SCH ×2 (08:45→21:19)
[2016-08-14] MEDS: LORATADINE 10 MG TAB PO SCH (08:45)
[2016-08-14] MEDS: LURASIDONE HCL 40 MG TAB (LATUDA) PO SCH (08:45)
[2016-08-14] MEDS: ACETAMINOPHEN TAB 650MG DOSE (2X325MG) PO PRN (16:31)
[2016-08-14 18:00] VITALS: BP 129/59
--- NOTE | 2016-08-14 19:25 | IPN ---
DATE: 08/14/2016 Pillo Somers says that he has been on SSI since he was 8, that as far as he knows he was told that he has the mental capacity of a 9-year-old. He states that he will be returning to his homeless retirement because the people that was living with were just using him for his money. He states that he was here because of a statement of his was misinterpreted. He is not depressed nor suicidal. MENTAL STATUS EXAMINATION: Speech is normal. Thought process intact. No loose associations. No abnormal or psychotic thoughts. Judgment and insight are intact. He is fully oriented. Recent and remote memory intact. His attention and concentration are full. He has no disturbance of language. He has a full fund of knowledge. His mood is good. His affect is bright. DIAGNOSIS: 1. Unspecified mood disorder. No change in medications.
[2016-08-14] MEDS: traZODone 100 MG TAB PO PRN (22:01)
[2016-08-15] MEDS: LEVOTHYROXINE 0.025 MG TAB (25 MCG) PO SCH (06:02)
[2016-08-15 06:30] VITALS: BP 105/59
[2016-08-15] MEDS: ADVAIR DISKUS 100/50 INH PWD INH SCH (08:25)
[2016-08-15] MEDS: LIDOCAINE 5% OINT 30 GM TOP SCH (08:26)
[2016-08-15] MEDS: raNITIdine SYRUP 150 MG/10 ML UDC PO SCH (08:26)
[2016-08-15] MEDS: LURASIDONE HCL 40 MG TAB (LATUDA) PO SCH (08:26)
[2016-08-15] MEDS: FLUTICASONE PROP 0.05% NASAL SPRAY 16 GM (FLONASE) SCH (08:26)
[2016-08-15] MEDS: OMEPRAZOLE 20 MG CAP PO SCH (08:26)
[2016-08-15] MEDS: LORATADINE 10 MG TAB PO SCH (08:26)
[2016-08-15] MEDS: DOCUSATE SODIUM 100 MG CAP PO SCH (08:26)
[2016-08-15] MEDS: FERROUS SULFATE 325MG TAB PO SCH (08:26)
[2016-08-15] MEDS: MIRALAX *UNIT DOSE* 17GM PACKET PO SCH (08:27)
[2016-08-15] MEDS: LITHIUM CARBONATE 300 MG CAP PO SCH (08:27)
[2016-08-15] MEDS: NICOTINE 21MG/24HR 1 EA TRANSDERMAL TD SCH (08:27)
[2016-08-15] MEDS: FEXOFENADINE 60 MG TAB PO SCH (08:27)
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
[2016-08-15] MEDS ORDERED: LIDOCAINE 5% OINT 30 GM TOP SCH (09:41)
[2016-08-15] MEDS ORDERED: traZODone 100 MG TAB PO PRN (13:45)
== END 2016-08-15 16:30 | disposition home or self-care (01) | DRG 753 ==
LOC: M ED 23:18 → M PSY 08-10 03:57
PROVIDERS: ADMIT Psychiatry & Neurology Psychiatry; ATTEND Psychiatry & Neurology Psychiatry
DX: F39 Unspecified mood [affective] disorder (principal); E03.9 Hypothyroidism, unspecified; F43.10 Post-traumatic stress disorder, unspecified; F60.9 Personality disorder, unspecified; F17.210 Nicotine dependence, cigarettes, uncomplicated; D64.9 Anemia, unspecified; M25.569 Pain in unspecified knee; J45.909 Unspecified asthma, uncomplicated; K21.9 Gastro-esophageal reflux disease without esophagitis; M54.9 Dorsalgia, unspecified; R94.5 Abnormal results of liver function studies; K59.09 Other constipation; Z88.8 Allergy status to other drugs, medicaments and biological substances; Z79.899 Other long term (current) drug therapy; Z82.49 Family history of ischemic heart disease and other diseases of the circulatory system; Z83.6 Family history of other diseases of the respiratory system; Z68.28 Body mass index [BMI] 28.0-28.9, adult

== ENCOUNTER 2016-08-18 18:56 | Emergency (ER) | payer OTHER ==
[~2016-08-18] VITALS: Ht 182.9 cm; Wt 97.5 kg
[~2016-08-18 18:56] MED LIST changes: +SYNT25TA PO; +TRAZ100T4 PO
[2016-08-18] MEDS ORDERED: ZOFR4TAB3 PO (19:59)
[2016-08-18] MEDS ORDERED: ONDANSETRON 4 MG ORAL DISINTEGRATING TAB (S0181) PO ONE (20:00)
[2016-08-18] MEDS ORDERED: ACETAMINOPHEN TAB 650MG DOSE (2X325MG) PO ONE (20:00)
[2016-08-18 20:13] VITALS: BP 136/69
== END 2016-08-18 20:28 | disposition home or self-care (01) ==
LOC: M ED 20:17
DX: B34.9 Viral infection, unspecified (principal); R11.0 Nausea; J02.9 Acute pharyngitis, unspecified; F17.200 Nicotine dependence, unspecified, uncomplicated; Z79.899 Other long term (current) drug therapy; Z88.1 Allergy status to other antibiotic agents; Z88.8 Allergy status to other drugs, medicaments and biological substances

== ENCOUNTER 2016-09-10 14:18 | Inpatient (IN) | payer OTHER ==
[~2016-09-10] VITALS: Ht 182.9 cm; Wt 103.3 kg
[~2016-09-10 14:18] MED LIST changes: +ZOFR4TAB3 PO
[2016-09-10 15:09] LABS: MEAN CORPUSCULAR HEMOGLOBIN 32.6 pg (27.0-33.0); MEAN CORPUSCULAR VOLUME 95.9 fl (80.0-96.0); RED CELL DISTRIBUTION WIDTH 12.8 % (11.5-14.5); WHITE BLOOD COUNT 6.6 K/mm3 (4.0-10.0)
[2016-09-10 15:30] LABS: METHADONE URINE NEGATIVE (NEGATIVE)
[2016-09-10 15:39] LABS: ALBUMIN 3.8 GM/DL (3.2-5.2); ALBUMIN/GLOBULIN RATIO 1.19 (1.00-1.93); ALKALINE PHOSPHATASE 85 U/L (45-117); ALT/SGPT 30 U/L (12-78); ANION GAP 7 MEQ/L (8-16); AST/SGOT 17 U/L (15-37); BILIRUBIN,DIRECT < 0.1 MG/DL (0.0-0.2); BILIRUBIN,TOTAL 0.3 MG/DL (0.2-1.0); BLOOD UREA NITROGEN 19 MG/DL (7-18); CALCIUM LEVEL 8.5 MG/DL (8.5-10.1); CARBON DIOXIDE LEVEL 26 MEQ/L (21-32); CHLORIDE LEVEL 107 MEQ/L (98-107); CREATININE FOR GFR 0.91 MG/DL (0.70-1.30); GLOMERULAR FILTRATION RATE > 60.0 (>60); GLUCOSE, FASTING 60 MG/DL (70-105); POTASSIUM SERUM 4.1 MEQ/L (3.5-5.1); SODIUM LEVEL 140 MEQ/L (136-145)
[2016-09-10] MEDS ORDERED: PATIENT COMMENT (17:48)
[2016-09-10 19:14] VITALS: BP 141/75
[2016-09-10] MEDS ORDERED: MOM 30ML SUSPENSION UDC PO PRN (20:00)
[2016-09-10] MEDS ORDERED: traZODone 50 MG TAB PO PRN (20:00)
[2016-09-10] MEDS ORDERED: FEXOFENADINE 60 MG TAB PO PRN (20:00)
[2016-09-10] MEDS ORDERED: MAALOX 30 ML SUSP *UDC PO PRN (20:00)
[2016-09-10] MEDS ORDERED: ALBUTEROL 90 MCG/ACT 8GM HFA INHALER INH PRN (20:00)
[2016-09-10] MEDS ORDERED: FLUTICASONE PROP 0.05% NASAL SPRAY 16 GM (FLONASE) PRN (20:00)
[2016-09-10] MEDS ORDERED: OMEPRAZOLE 20 MG CAP PO PRN (20:00)
[2016-09-10] MEDS: FERROUS SULFATE 325MG TAB PO SCH (22:23)
[2016-09-10] MEDS: ADVAIR DISKUS 100/50 INH PWD INH SCH (22:23)
[2016-09-10] MEDS: NICOTINE 21MG/24HR 1 EA TRANSDERMAL TD SCH (22:24)
[2016-09-11 06:00] VITALS: BP 110/61
[2016-09-11] MEDS: LEVOTHYROXINE 0.025 MG TAB (25 MCG) PO SCH (06:17)
[2016-09-11] MEDS: ADVAIR DISKUS 100/50 INH PWD INH SCH ×2 (08:27→20:33)
[2016-09-11] MEDS: FERROUS SULFATE 325MG TAB PO SCH ×2 (08:27→20:33)
[2016-09-11] MEDS: LITHIUM CARBONATE 150 MG CAP PO SCH ×2 (11:11→20:33)
[2016-09-11] MEDS: LURASIDONE 20 MG TAB (LATUDA) PO SCH (11:11)
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
[2016-09-11 18:00] VITALS: BP 118/60
[2016-09-11] MEDS: NICOTINE 21MG/24HR 1 EA TRANSDERMAL TD SCH (20:33)
[2016-09-11] MEDS: traZODone 100 MG TAB PO SCH (22:30)
[2016-09-11] MEDS: BACITRACIN OINT 30GM TOP SCH (23:03)
--- NOTE | 2016-09-12 04:22 | HPE ---
DATE OF ADMISSION: 09/10/2016 HISTORY OF PRESENT ILLNESS: Please refer to psychiatric history and evaluation for further details on this admission. This examination and history is intended for medical issues, which may need treatment, followup or consult on this 25-year-old male. PRIMARY CARE PROVIDER: SOTO Lopez. ALLERGIES: AMITRIPTYLINE, HALOPERIDOL, LOXAPINE, MIRTAZAPINE, RISPERIDONE, THIORIDAZINE. PAST MEDICAL HISTORY: 1. Asthma. 2. Bipolar disorder. 3. Attention deficit disorder (ADD). 4. Intermittent explosive disorder. 5. Chronic hyperextension of the knees. He wears braces. 6. Iron deficiency, currently on replacement. 7. Chronic constipation. 8. Chronic backache. Lumbar spine x-ray unremarkable. 9. Chronic knee pain. 10. Chronic poor dentition. 11. Insomnia. 12. Allergic rhinitis. 13. Gastroesophageal reflux disease (GERD). 14. History of elevated liver function tests (LFTs). He had negative biopsy for hemachromatosis. He did not go for a second opinion at [facility]. PAST SURGICAL HISTORY: 1. Colonoscopy by Dr. Edwards 11/30. 2. Tonsillectomy. 3. Adenoidectomy. 4. Tympanostomy tubes. 5. Bilateral myringotomy. LABORATORY STUDIES: CBC normal. Electrolytes normal. BUN and creatinine 19 and 0.91. AST normal at 17. ALT 30. Toxicology screen was negative. SOCIAL HISTORY: He is single. He smokes 2-3 packs of cigarettes per day. Denies alcohol or intravenous (IV) drug use. FAMILY HISTORY: Noncontributory. REVIEW OF SYSTEMS: Unremarkable other than ongoing chronic knee pain for which he wears braces. He reports no nausea, vomiting or diarrhea. States his constipation is controlled with his current bowel regimen. EKG 07/16/2016: Normal sinus rhythm. HOME MEDICATIONS: - albuterol two puffs by mouth every 4 hours as needed for shortness of breath or wheeze - ferrous sulfate 325 mg by mouth twice a day - fexofenadine 60 mg by mouth daily as needed for allergies - Flonase two sprays each nostril twice a day as needed for allergies - hydroxyzine 25 mg by mouth nightly as needed for sleep - levothyroxine 25 mcg by mouth daily - lithium 300 mg by mouth twice a day mood - Latuda 40 mg by mouth daily - omeprazole 20 mg by mouth daily as needed for GERD - Advair Diskus 100/50 one inhalation by mouth twice a day - trazodone 200 mg by mouth nightly as needed to sleep PHYSICAL EXAMINATION: 25-year-old cooperative male in no acute distress. Height 72 inches, weight 99.4 kg, body mass index (BMI) 29.7. Blood pressure 110/55, pulse 80, respirations 18, temperature 96.4, pulse oximetry 100% on room air. Patient is alert and oriented times three. Pupils equal and react to light. Extraocular muscles intact. Cornea and sclerae clear. Conjunctivae were normal. No facial asymmetry. Pharynx, tongue and gums pink and moist. Tongue is midline. Neck is supple without lymphadenopathy. No thyromegaly, no goiter. Carotids 2+ without bruit. Chest clear to auscultation without wheeze or retraction. Heart is regular without murmur or gallop. Abdomen is benign. Bowel sounds positive. Genitourinary/rectal: Not done. Extremities: Show equal strength, full range of motion. No cyanosis, clubbing or edema. Peripheral pulses equal and palpable bilaterally. Skin is warm and dry. Cranial nerves III-XII grossly intact. IMPRESSION/PLAN: 1. Psychiatric plan per psychiatry. 2. Nicotine dependence. Patch available. 3. Asthma. Continue Advair, albuterol as needed, fexofenadine as needed, fluticasone as needed. Continue to followup with primary care provider on discharge. 4. Hypothyroidism. Continue Synthroid. Thyroid-stimulating hormone (TSH) within normal limits. 5. Anemia. Continue iron. Hemoglobin and hematocrit is good at 15.8, 46.6. Anemia clinically stable. 6. Gastroesophageal reflux disease (GERD). Continue omeprazole as needed. 7. Allergic rhinitis. Continue Flonase as needed. 8. History of elevated liver function tests (LFTs). Currently stable. Continue to followup with Dr. Edwards in [place] if needed. 9. Poor dentition. Continue outpatient dental care. 10. Right forearm had new tattoo on the right inner forearm. No redness or drainage. Will utilize bacitracin ointment to the tattoo twice a day. No acute medical issues.
[2016-09-12] MEDS: LEVOTHYROXINE 0.025 MG TAB (25 MCG) PO SCH (05:54)
[2016-09-12 06:00] VITALS: BP 103/53
[2016-09-12] MEDS: ADVAIR DISKUS 100/50 INH PWD INH SCH ×2 (08:05→21:20)
[2016-09-12] MEDS: FERROUS SULFATE 325MG TAB PO SCH ×2 (08:05→21:21)
[2016-09-12] MEDS: LURASIDONE 20 MG TAB (LATUDA) PO SCH (08:06)
[2016-09-12] MEDS: LITHIUM CARBONATE 150 MG CAP PO SCH ×2 (08:06→21:21)
[2016-09-12] MEDS: BACITRACIN OINT 30GM TOP SCH ×2 (08:07→21:20)
--- NOTE | 2016-09-12 16:41 | IPN ---
DATE: 09/12/2016 A 25-year-old male with history of depression and psychotic features, admitted for suicidal ideation and auditory hallucinations. SUBJECTIVE: "I'm feeling about the same." OBJECTIVE: No major changes since yesterday at admission. The patient is denying side effect from the medication. The patient is minimally interacting with other patients and staff. The patient is able to contract for safety here in our unit. The patient admits to having intermittent suicidal thoughts. The patient continues with psychomotor retardation and sad, restricted facial expression. MENTAL STATUS EXAMINATION: The patient is dressed in [employer]. The patient is cooperative during the interview. He has fair eye contact. Speech is soft and monotone. Mood is depressed and anxious. Affect is restricted and congruent with mood. The patient is denying auditory or visual hallucinations. No evidence of delusions. Memory, attention and concentration are fair. The patient is able to contract for safety in our unit, although he complains of intermittent suicidal thoughts. Insight and judgment is limited. ASSESSMENT: 1. Depression. 2. Suicidal ideation. PLAN: 1. Continue with trazodone 100 mg by mouth at bedtime. 2. Continue with lithium 150 mg by mouth twice a day. 3. Continue Latuda 20 mg by mouth every morning. 4. Continue medication management, individual and group therapy.
[2016-09-12 18:00] VITALS: BP 107/55
[2016-09-12] MEDS: traZODone 100 MG TAB PO SCH (21:20)
[2016-09-12] MEDS: NICOTINE 21MG/24HR 1 EA TRANSDERMAL TD SCH (21:22)
[2016-09-13] MEDS: LEVOTHYROXINE 0.025 MG TAB (25 MCG) PO SCH (05:53)
[2016-09-13 06:21] VITALS: BP 117/69
[2016-09-13] MEDS: ADVAIR DISKUS 100/50 INH PWD INH SCH ×2 (08:14→21:27)
[2016-09-13] MEDS: FERROUS SULFATE 325MG TAB PO SCH ×2 (08:14→21:28)
[2016-09-13] MEDS: BACITRACIN OINT 30GM TOP SCH ×2 (08:15→21:28)
[2016-09-13] MEDS: LITHIUM CARBONATE 150 MG CAP PO SCH ×2 (08:15→21:28)
[2016-09-13] MEDS: LURASIDONE 20 MG TAB (LATUDA) PO SCH (08:15)
[2016-09-13] MEDS: ACETAMINOPHEN TAB 650MG DOSE (2X325MG) PO PRN (09:31)
--- NOTE | 2016-09-13 11:33 | MHIPNPDOC ---
[facility] Progress Note Progress Note DATE OF SERVICE: 09/13/16 HISTORY: Patient is 25-year-old male with history of depression with psychotic features, admitted for suicidal ideation with after experiencing termination of relationship with girlfriend. [employer] Teacher met with patient today to assess treatment progress on inpatient unit. Patient reports current anxiety level of 2 /10 related to reported homelessness, depression 2/10 related to "being sad about my relationship with my girlfriend being over," denies suicidal and homicidal ideation, denies audiovisual hallucinations, denies urge to engage in self-injurious behavior. Patient indicates he has not experienced suicidal ideation since admission to hospital. Patient states he is sleeping well and denies nightmares, indicates appetite is stable. Patient remains isolated to room, is participating only in some unit programming. Patient informs grant writer he had stopped taking his medications after last discharge from hospital for approximately one week, notes medication restart is helpful and he denies medication side effects. Patient presents with no signs of acute distress at time of interaction. VITAL SIGNS: See below. NEW TEST RESULTS: No new results. Labs on admission indicated elevated BUN, low anion gap and glucose MEDICAL HISTORY: Asthma, hypothyroidism, chronic hyperextension of the knees, anemia currently on replacement, chronic constipation, chronic backache lumbar spine x-ray unremarkable, chronic knee pain, poor dentition, allergic rhinitis, GERD, history of elevated liver function tests, had negative biopsy for hemachromatosis, did not go for second opinion at [facility]. 07/16/16 EKG normal sinus rhythm normal EKG UDS negative CURRENT MEDICATIONS: See below. MENTAL STATUS EXAMINATION: Patient is a 25-year old male, who is pleasant and cooperative, engageable, exhibits adequate personal hygiene, dressed in hospital clothing, makes fair eye contact, ambulates with steady gait, appears stated age. Speech: Is of normal rate, rhythm, volume, spontaneous, coherent Language skills are intact Thought processes including: Linear, logical, goal-directed Thought content: Rational, logical, no tangentiality, paranoia, or perseverative thinking noted Abstract reasoning, and computation: Appear intact Description of associations: Intact Description of abnormal or psychotic thoughts: Patient denies suicidal or homicidal ideation, denies auditory or visual hallucinations, does not appear to be responding to internal stimuli, does not endorse bizarre or paranoid ideation, denies preoccupation with violence or obsessions Judgment: Limited Insight: Limited Orientation: A and O 3 Recent and remote memory: Appear intact Attention span and concentration: Appears adequate Language: Adequate Fund of knowledge: Adequate Mood: "Okay." Patient appears depressed and anxious, no mood lability noted Affect: Constricted, brightens at times, congruent with mood DIAGNOSES: Unspecified depressive disorder, rule out posttraumatic stress disorder, history of cannabis use disorder. ASSESSMENT: It appears patient has been isolated to room over weekend, indicates he is participating in some unit programming, visibility is improving but he remains withdrawn with limited interaction with staff and peers. Patient has restarted medication, notes medications are working well and reports improvement to symptoms of anxiety and depression, denies auditory or visual hallucinations, denies homicidal ideation. Patient further denies suicidal ideation and verbalizes awareness of how to access supportive services on the unit if needed. Will monitor patient's response to medication restart and will monitor for side effects. Patient was strongly encouraged to participate in unit programming. Will evaluate patient's safety, resolution of suicidal ideation, and discharge readiness. Patient indicates when prepared for discharge she does not know where he will be going, notes he is currently "homeless," states he had been living with his girlfriend with whom he has now broken up and has nowhere to go, adds he has a limited support system. campus coordinator is attempting to communicate with DSS and case maker to establish safe discharge plan for patient. MANAGEMENT PLAN: Continue lithium 150 mg po BID, latuda 20 mg po q 08:00, and trazodone 100 mg. Maintain safety precautions Patient to attend groups and participate in unit programming to develop coping strategies Engage patient in discharge planning process and arrange meeting with DSS/CM/ support system to ensure safe discharge planning when appropriate Patient to follow up with PCM upon discharge TIME SPENT: 35 minutes. Vital Signs Vital Signs Date Time Temp Pulse Resp B/P (MAP) Pulse Ox O2 Delivery O2 Flow Rate FiO2 09/13/16 06:21 97.8 76 18 117/69 (85) 09/10/16 19:14 96 09/10/16 14:18 Room Air Current Medications Current Medications Acetaminophen (Tylenol Tab) 650 mg Q6HP PRN PO HEADACHE or DISCOMFORT Last administered on 09/13/16t 09:31; Start 09/10/16 at 20:00; Stop 10/10/16 at 19:59 Al Hydrox/Mg Hydrox/Simethicone (Mylanta) 30 ml Q4HP PRN PO HEARTBURN/ INDIGESTION; Start 09/10/16 at 20:00; Stop 10/10/16 at 19:59 Albuterol Sulfate (Proventil, Ventolin Hfa) 2 puff Q4HP PRN INH SHORTNESS OF BREATH; Start 09/10/16 at 20:00; Stop 10/10/16 at 19:59 Bacitracin (Bacitracin Oint) to tatoo right fore... BID TOP Last administered on 09/13/16 08:15; Start 09/11/16 at 21:00; Stop 10/11/16 at 20:59 Ferrous Sulfate (Ferrous Sulfate) 325 mg BID PO Last administered on 09/13/16 08:14; Start 09/10/16 at 21:00; Stop 10/10/16 at 20:59 Fexofenadine HCl (Enriqueta) 60 mg DAILY PRN PO ALLERGIES; Start 09/10/16 at 20: 00; Stop 10/10/16 at 19:59 Fluticasone Propionate (Flonase 0.05% Nasal [place]) 2 spray DAILY PRN NA ALLERGIES; Start 09/10/16 at 20:00; Stop 10/10/16 at 19:59 Home Med (Med Rec Complete!) ASDIRECTED XX ; Start 09/10/16 at 18:00; Stop at 18:00; Status DC Levothyroxine Sodium (Synthroid) 0.025 mg DAILY@06 PO Last administered on 09/13 05:53; Start 09/11/16 at 06:00; Stop 10/11/16 at 05:59 [place] Carbonate ([place] Carbonate) 150 mg BID PO Last administered on 08:15; Start 09/11/16 at 09:00; Stop 10/11/16 at 08:59 Lurasidone HCl (Latuda) 20 mg DAILY@08 PO Last administered on 09/13/16 08:15 ; Start 09/11/16 at 08:00; Stop 10/11/16 at 07:59 Magnesium Hydroxide (Milk Of Magnesia) 30 ml DAILYPRN PRN PO CONSTIPATION; Start 09/10/16 at 20:00; Stop 10/10/16 at 19:59 Nicotine (Nicoderm Cq 21mg) 1 patch DAILY@2100 TD Last administered on 21:22; Start 09/10/16 at 21:00; Stop 10/10/16 at 20:59 Omeprazole (PriLOSEC) 20 mg DAILY PRN PO GERD; Start 09/10/16 at 20:00; Stop at 19:59 Salmeterol Xinafoate/ Fluticasone (Advair Diskus 100/50) 1 puff BID INH Last administered on 09/13/16 08:14; Start 09/10/16 at 21:00; Stop 10/10/16 at 20:59 Trazodone HCl (Desyrel) 50 mg QHSP PRN PO INSOMNIA; Start 09/10/16 at 20:00; Stop 09/11/16 at 10:41; Status DC Trazodone HCl (Desyrel) 100 mg QPM PO Last administered on 09/12/16 21:20; Start 09/11/16 at 21:00; Stop 10/11/16 at 20:59 Allergies Coded Allergies: Amitriptyline (Verified Allergy, Intermediate, Rash, 08/18/16) Haloperidol (Verified Allergy, Unknown, 08/18/16) Loxapine (Verified Allergy, Unknown, 08/18/16) Mirtazapine (Verified Allergy, Unknown, 08/18/16) Risperidone (Verified Adverse Reaction, Intermediate, EPS, 08/18/16) Thioridazine (Verified Adverse Reaction, Intermediate, EPS, 08/18/16) Indu Flores September 13, 2016 11:33
[2016-09-13 18:11] VITALS: BP 111/63
[2016-09-13] MEDS: traZODone 100 MG TAB PO SCH (21:00)
[2016-09-13] MEDS: NICOTINE 21MG/24HR 1 EA TRANSDERMAL TD SCH (21:29)
[2016-09-14] MEDS: LEVOTHYROXINE 0.025 MG TAB (25 MCG) PO SCH (05:48)
[2016-09-14 06:34] VITALS: BP 136/76
[2016-09-14] MEDS: FERROUS SULFATE 325MG TAB PO SCH ×2 (08:56→20:55)
[2016-09-14] MEDS: ADVAIR DISKUS 100/50 INH PWD INH SCH ×2 (08:56→20:55)
[2016-09-14] MEDS: LITHIUM CARBONATE 150 MG CAP PO SCH ×2 (08:56→20:55)
[2016-09-14] MEDS: LURASIDONE 20 MG TAB (LATUDA) PO SCH (08:56)
[2016-09-14] MEDS: BACITRACIN OINT 30GM TOP SCH ×2 (08:57→20:57)
[2016-09-14] MEDS: ACETAMINOPHEN TAB 650MG DOSE (2X325MG) PO PRN (11:46)
--- NOTE | 2016-09-14 12:59 | MHIPNPDOC ---
[facility] Progress Note Progress Note DATE OF SERVICE: 09/14/16 HISTORY: Patient is 25-year-old male with history of depression with psychotic features, admitted for suicidal ideation with after experiencing termination of relationship with girlfriend. Banjo Repairer met with patient today to assess treatment progress on inpatient unit. Patient reports current anxiety level of 2 /10 related to reported homelessness, depression 2/10 related to which he continues to attribute to recent termination of relationship with girlfriend, denies suicidal and homicidal ideation, denies audiovisual hallucinations, denies urge to engage in self-injurious behavior. Patient indicates he feels he is coming to terms with end of romantic relationship noting, "I don't care as much as I did, if she comes back she comes back, if not that's okay too." Patient indicates he has not experienced suicidal ideation since admission to hospital. Patient indicates he is sleeping well, denies nightmares, states appetite remains stable. Patient has been more visible, attending some groups, indicates he currently has a head cold. Patient reiterates today that he had stopped taking his medications approximately one week after prior hospitalization, notes medication restart is helpful and he denies medication side effects. Patient presents with no signs of acute distress at time of interaction. VITAL SIGNS: See below. NEW TEST RESULTS: No new results. Labs on admission indicated elevated BUN, low anion gap and glucose MEDICAL HISTORY: Asthma, hypothyroidism, chronic hyperextension of the knees, anemia currently on replacement, chronic constipation, chronic backache lumbar spine x-ray unremarkable, chronic knee pain, poor dentition, allergic rhinitis, GERD, history of elevated liver function tests, had negative biopsy for hemachromatosis, did not go for second opinion at [facility]. 07/16/16 EKG normal sinus rhythm normal EKG UDS negative CURRENT MEDICATIONS: See below. MENTAL STATUS EXAMINATION: Patient is a 25-year old male, who is pleasant and cooperative, engageable, exhibits adequate personal hygiene, dressed in hospital clothing, makes fair eye contact, ambulates with steady gait, appears stated age. Speech: Is of normal rate, rhythm, volume, spontaneous, coherent Language skills are intact Thought processes including: Linear, logical, goal-directed Thought content: Rational, logical, no tangentiality, paranoia, or perseverative thinking noted Abstract reasoning, and computation: Appear intact Description of associations: Intact Description of abnormal or psychotic thoughts: Patient denies suicidal or homicidal ideation, denies auditory or visual hallucinations, does not appear to be responding to internal stimuli, does not endorse bizarre or paranoid ideation, denies preoccupation with violence or obsessions Judgment: Limited, some improvement noted Insight: Limited, some improvement noted Orientation: A and O 3 Recent and remote memory: Appear intact Attention span and concentration: Appears adequate Language: Adequate Fund of knowledge: Adequate Mood: "Okay, better today, except for my head cold." Patient appears less depressed and less anxious, no mood lability noted Affect: Constricted, brightens at times, congruent with mood DIAGNOSES: Unspecified depressive disorder, rule out posttraumatic stress disorder, history of cannabis use disorder. ASSESSMENT: Patient is been more visible on unit, engaging selectively with peers, pleasant and cooperative with staff, and presenting with behavior management challenges. Patient is responding well to medication restart, notes medications are working well and reports improvement to symptoms of anxiety and depression, denies auditory or visual hallucinations, denies homicidal ideation. Patient further denies suicidal ideation and verbalizes awareness of how to access supportive services on the unit if needed. Patient did not take trazodone for sleep last night, notes he slept well without medication, will change Rx to PRN so the patient may utilize medication as needed. Will continue to monitor patient's response to medication restart and will monitor for side effects. Patient was again encouraged to participate in unit programming. Will continue to evaluate patient's safety, resolution of suicidal ideation, and discharge readiness. Patient indicates when prepared for discharge he remains uncertain where he will be going, but indicates hopefulness today that hospice spiritual care coordinator, outpatient behavioral health case manager, and DSS payee will be able to secure housing for him. Patient informs auto service writer he plans to resume outpatient treatment for psychotherapy and medication management through [facility]. MANAGEMENT PLAN: Change trazodone 100 mg to hs PRN for insomnia. Continue lithium 150 mg po BID and latuda 20 mg po q 08:00. Maintain safety precautions Patient to attend groups and participate in unit programming to develop coping strategies Engage patient in discharge planning process and arrange meeting with DSS/CM/ support system to ensure safe discharge planning when appropriate Patient to follow up with PCM upon discharge TIME SPENT: 35 minute Vital Signs Vital Signs Date Time Temp Pulse Resp B/P (MAP) Pulse Ox O2 Delivery O2 Flow Rate FiO2 09/14/16 06:34 98.0 84 16 136/76 (96) 09/10/16 19:14 96 09/10/16 14:18 Room Air Current Medications Current Medications Acetaminophen (Tylenol Tab) 650 mg Q6HP PRN PO HEADACHE or DISCOMFORT Last administered on 09/14/16 11:46; Start 09/10/16 at 20:00; Stop 10/10/16 at 19:59 Al Hydrox/Mg Hydrox/Simethicone (Mylanta) 30 ml Q4HP PRN PO HEARTBURN/ INDIGESTION; Start 09/10/16 at 20:00; Stop 10/10/16 at 19:59 Albuterol Sulfate (Proventil, Ventolin Hfa) 2 puff Q4HP PRN INH SHORTNESS OF BREATH; Start 09/10/16 at 20:00; Stop 10/10/16 at 19:59 Bacitracin (Bacitracin Oint) to tatoo right fore... BID TOP Last administered on 09/13/16 21:28; Start 09/11/16 at 21:00; Stop 10/11/16 at 20:59 Ferrous Sulfate (Ferrous Sulfate) 325 mg BID PO Last administered on 09/14/16 08:56; Start 09/10/16 at 21:00; Stop 10/10/16 at 20:59 Fexofenadine HCl (Enriqueta) 60 mg DAILY PRN PO ALLERGIES; Start 09/10/16 at 20: 00; Stop 10/10/16 at 19:59 Fluticasone Propionate (Flonase 0.05% Nasal [place]) 2 spray DAILY PRN NA ALLERGIES; Start 09/10/16 at 20:00; Stop 10/10/16 at 19:59 Home Med (Med Rec Complete!) ASDIRECTED XX ; Start 09/10/16 at 18:00; Stop at 18:00; Status DC Levothyroxine Sodium (Synthroid) 0.025 mg DAILY@06 PO Last administered on 09/14 05:48; Start 09/11/16 at 06:00; Stop 10/11/16 at 05:59 [place] Carbonate ([place] Carbonate) 150 mg BID PO Last administered on 08:56; Start 09/11/16 at 09:00; Stop 10/11/16 at 08:59 Lurasidone HCl (Latuda) 20 mg DAILY@08 PO Last administered on 09/14/16 08:56 ; Start 09/11/16 at 08:00; Stop 10/11/16 at 07:59 Magnesium Hydroxide (Milk Of Magnesia) 30 ml DAILYPRN PRN PO CONSTIPATION; Start 09/10/16 at 20:00; Stop 10/10/16 at 19:59 Nicotine (Nicoderm Cq 21mg) 1 patch DAILY@2100 TD Last administered on 21:29; Start 09/10/16 at 21:00; Stop 10/10/16 at 20:59 Omeprazole (PriLOSEC) 20 mg DAILY PRN PO GERD; Start 09/10/16 at 20:00; Stop at 19:59 Salmeterol Xinafoate/ Fluticasone (Advair Diskus 100/50) 1 puff BID INH Last administered on 09/14/16 08:56; Start 09/10/16 at 21:00; Stop 10/10/16 at 20:59 Trazodone HCl (Desyrel) 50 mg QHSP PRN PO INSOMNIA; Start 09/10/16 at 20:00; Stop 09/11/16 at 10:41; Status DC Trazodone HCl (Desyrel) 100 mg QPM PO Last administered on 09/12/16 21:20; Start 09/11/16 at 21:00; Stop 09/14/16 at 12:48; Status DC Trazodone HCl (Desyrel) 100 mg QPM PRN PO insomnia; Start 09/14/16 at 21:00; Stop 10/14/16 at 20:59 Allergies Coded Allergies: Amitriptyline (Verified Allergy, Intermediate, Rash, 08/18/16) Haloperidol (Verified Allergy, Unknown, 08/18/16) Loxapine (Verified Allergy, Unknown, 08/18/16) Mirtazapine (Verified Allergy, Unknown, 08/18/16) Risperidone (Verified Adverse Reaction, Intermediate, EPS, 08/18/16) Thioridazine (Verified Adverse Reaction, Intermediate, EPS, 08/18/16) Indu Flores September 14, 2016 12:59
[2016-09-14 18:20] VITALS: BP 120/77
[2016-09-14] MEDS: NICOTINE 21MG/24HR 1 EA TRANSDERMAL TD SCH (20:56)
[2016-09-15] MEDS: traZODone 100 MG TAB PO PRN ×2 (01:12→22:28)
[2016-09-15] MEDS: LEVOTHYROXINE 0.025 MG TAB (25 MCG) PO SCH (06:02)
[2016-09-15 06:09] VITALS: BP 115/63
[2016-09-15] MEDS: LURASIDONE 20 MG TAB (LATUDA) PO SCH (08:26)
[2016-09-15] MEDS: BACITRACIN OINT 30GM TOP SCH ×2 (08:26→21:08)
[2016-09-15] MEDS: LITHIUM CARBONATE 150 MG CAP PO SCH ×2 (08:27→20:20)
[2016-09-15] MEDS: FERROUS SULFATE 325MG TAB PO SCH ×2 (08:27→20:20)
[2016-09-15] MEDS: ADVAIR DISKUS 100/50 INH PWD INH SCH ×2 (09:00→20:20)
--- NOTE | 2016-09-15 13:42 | MHIPNPDOC ---
[facility] Progress Note Progress Note DATE OF SERVICE: 09/15/16 HISTORY: Patient is 25-year-old male with history of depression with psychotic features, admitted for suicidal ideation with after experiencing termination of relationship with girlfriend. Casework Supervisor met with patient today to assess treatment progress on inpatient unit. Patient reports improvement to symptoms of anxiety and depression, denies suicidal and homicidal ideation, denies audiovisual hallucinations, denies urge to engage in self-injurious behavior. Patient states he is feeling more hopeful and has come to terms with termination romantic relationship. Patient indicates he has not experienced suicidal ideation since admission to hospital. Patient indicates he is sleeping well, denies nightmares, states appetite remains stable. Patient has been more visible, attending groups, reports improvement to symptoms of head cold. Patient reiterates today that he had stopped taking his medications approximately one week after prior hospitalization, notes medication restart is helpful and he denies medication side effects. Patient presents with no signs of acute distress at time of interaction. VITAL SIGNS: See below. NEW TEST RESULTS: No new results. Labs on admission indicated elevated BUN, low anion gap and glucose MEDICAL HISTORY: Asthma, hypothyroidism, chronic hyperextension of the knees, anemia currently on replacement, chronic constipation, chronic backache lumbar spine x-ray unremarkable, chronic knee pain, poor dentition, allergic rhinitis, GERD, history of elevated liver function tests, had negative biopsy for hemachromatosis, did not go for second opinion at [facility]. 07/16/16 EKG normal sinus rhythm normal EKG UDS negative CURRENT MEDICATIONS: See below. MENTAL STATUS EXAMINATION: Patient is a 25-year old male, who is pleasant and cooperative, engageable, exhibits adequate personal hygiene, dressed in hospital clothing, makes improved eye contact, ambulates with steady gait, appears stated age. Speech: Is of normal rate, rhythm, volume, spontaneous, coherent Language skills are intact Thought processes including: Linear, logical, goal-directed Thought content: Rational, logical, no tangentiality, paranoia, or perseverative thinking noted Abstract reasoning, and computation: Appear intact Description of associations: Intact Description of abnormal or psychotic thoughts: Patient denies suicidal or homicidal ideation, denies auditory or visual hallucinations, does not appear to be responding to internal stimuli, does not endorse bizarre or paranoid ideation, denies preoccupation with violence or obsessions Judgment: Fair, has improved during treatment Insight: Fair, has improved during treatment Orientation: A and O 3 Recent and remote memory: Appear intact Attention span and concentration: Appears adequate Language: Adequate Fund of knowledge: Adequate Mood: "Pretty good." Patient appears less depressed and less anxious, no mood lability noted Affect: Constricted, brightens at times, congruent with mood DIAGNOSES: Unspecified depressive disorder, rule out posttraumatic stress disorder, history of cannabis use disorder. ASSESSMENT: Patient is been more visible on unit, engaging selectively with peers, pleasant and cooperative with staff, and presenting with behavior management challenges. Patient is responding well to medication restart, notes medications are working well and denies need for dosing adjustments. Patient reports improvement to symptoms of anxiety and depression, denies auditory or visual hallucinations, denies homicidal ideation. Patient further denies suicidal ideation and verbalizes awareness of how to access supportive services on the unit if needed. Patient utilized trazodone for sleep last night with good effect reported, denies medication side effects. Will continue to monitor patient's response to medication restart and will monitor for side effects. Importance of medication and treatment compliance was discussed with patient who verbalized understanding. Will continue to evaluate patient's safety, resolution of suicidal ideation, and discharge readiness. Patient indicates when prepared for discharge he remains uncertain where he will be going, indicates today he is aware he will need to report to DSS and possibly go to correction. Patient remains hopeful that health education coordinator, outpatient residential case manager, and [facility] payee will be able to secure housing for him. Patient informs telegraphic typewriter operator chief he plans to resume outpatient treatment for psychotherapy and medication management through [facility]. MANAGEMENT PLAN: Continue trazodone 100 mg to hs PRN for insomnia, lithium 150 mg po BID, and latuda 20 mg po q 08:00. Maintain safety precautions Patient to attend groups and participate in unit programming to develop coping strategies Engage patient in discharge planning process and arrange meeting with DSS/CM/ support system to ensure safe discharge planning when appropriate Patient to follow up with PCM upon discharge TIME SPENT: 35 minute Vital Signs Vital Signs Date Time Temp Pulse Resp B/P (MAP) Pulse Ox O2 Delivery O2 Flow Rate FiO2 09/15/16 06:09 98.0 99 16 115/63 (80) Room Air 09/10/16 19:14 96 Current Medications Current Medications Acetaminophen (Tylenol Tab) 650 mg Q6HP PRN PO HEADACHE or DISCOMFORT Last administered on 09/14/16 11:46; Start 09/10/16 at 20:00; Stop 10/10/16 at 19:59 Al Hydrox/Mg Hydrox/Simethicone (Mylanta) 30 ml Q4HP PRN PO HEARTBURN/ INDIGESTION; Start 09/10/16 at 20:00; Stop 10/10/16 at 19:59 Albuterol Sulfate (Proventil, Ventolin Hfa) 2 puff Q4HP PRN INH SHORTNESS OF BREATH; Start 09/10/16 at 20:00; Stop 10/10/16 at 19:59 Bacitracin (Bacitracin Oint) to tatoo right fore... BID TOP Last administered on 09/15/16 08:26; Start 09/11/16 at 21:00; Stop 10/11/16 at 20:59 Ferrous Sulfate (Ferrous Sulfate) 325 mg BID PO Last administered on 09/15/16 08:27; Start 09/10/16 at 21:00; Stop 10/10/16 at 20:59 Fexofenadine HCl (Enriqueta) 60 mg DAILY PRN PO ALLERGIES; Start 09/10/16 at 20: 00; Stop 10/10/16 at 19:59 Fluticasone Propionate (Flonase 0.05% Nasal [place]) 2 spray DAILY PRN NA ALLERGIES; Start 09/10/16 at 20:00; Stop 10/10/16 at 19:59 Home Med (Med Rec Complete!) ASDIRECTED XX ; Start 09/10/16 at 18:00; Stop at 18:00; Status DC Levothyroxine Sodium (Synthroid) 0.025 mg DAILY@06 PO Last administered on 06:02; Start 09/11/16 at 06:00; Stop 10/11/16 at 05:59 [place] Carbonate ([place] Carbonate) 150 mg BID PO Last administered on 08:27; Start 09/11/16 at 09:00; Stop 10/11/16 at 08:59 Lurasidone HCl (Latuda) 20 mg DAILY@08 PO Last administered on 09/15/16 08:26; Start 09/11/16 at 08:00; Stop 10/11/16 at 07:59 Magnesium Hydroxide (Milk Of Magnesia) 30 ml DAILYPRN PRN PO CONSTIPATION; Start 09/10/16 at 20:00; Stop 10/10/16 at 19:59 Nicotine (Nicoderm Cq 21mg) 1 patch DAILY@2100 TD Last administered on 20:56; Start 09/10/16 at 21:00; Stop 10/10/16 at 20:59 Omeprazole (PriLOSEC) 20 mg DAILY PRN PO GERD; Start 09/10/16 at 20:00; Stop at 19:59 Salmeterol Xinafoate/ Fluticasone (Advair Diskus 100/50) 1 puff BID INH Last administered on 09/14/16 20:55; Start 09/10/16 at 21:00; Stop 10/10/16 at 20:59 Trazodone HCl (Desyrel) 50 mg QHSP PRN PO INSOMNIA; Start 09/10/16 at 20:00; Stop 09/11/16 at 10:41; Status DC Trazodone HCl (Desyrel) 100 mg QPM PO Last administered on 09/12/16 21:20; Start 09/11/16 at 21:00; Stop 09/14/16 at 12:48; Status DC Trazodone HCl (Desyrel) 100 mg QPM PRN PO insomnia Last administered on 01:12; Start 09/14/16 at 21:00; Stop 10/14/16 at 20:59 Allergies Coded Allergies: Amitriptyline (Verified Allergy, Intermediate, Rash, 08/18/16) Haloperidol (Verified Allergy, Unknown, 08/18/16) Loxapine (Verified Allergy, Unknown, 08/18/16) Mirtazapine (Verified Allergy, Unknown, 08/18/16) Risperidone (Verified Adverse Reaction, Intermediate, EPS, 08/18/16) Thioridazine (Verified Adverse Reaction, Intermediate, EPS, 08/18/16) Indu Flores Sep 15, 2016 13:42
[2016-09-15 18:00] VITALS: BP 117/59
[2016-09-15] MEDS: NICOTINE 21MG/24HR 1 EA TRANSDERMAL TD SCH (21:09)
[2016-09-16 06:00] VITALS: BP 105/58
[2016-09-16] MEDS: LEVOTHYROXINE 0.025 MG TAB (25 MCG) PO SCH (06:15)
[2016-09-16] MEDS: FERROUS SULFATE 325MG TAB PO SCH (08:05)
[2016-09-16] MEDS: LURASIDONE 20 MG TAB (LATUDA) PO SCH (08:05)
[2016-09-16] MEDS: LITHIUM CARBONATE 150 MG CAP PO SCH (08:06)
[2016-09-16] MEDS: ADVAIR DISKUS 100/50 INH PWD INH SCH (08:07)
[2016-09-16] MEDS: BACITRACIN OINT 30GM TOP SCH (08:08)
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
[2016-09-16] MEDS ORDERED: LATU20TA PO (09:01)
[2016-09-16] MEDS ORDERED: LITH150C PO (09:01)
[2016-09-16] MEDS ORDERED: TRAZ10TA PO (09:01)
[2016-09-16] MEDS ORDERED: NICO21PAT TD (09:55)
== END 2016-09-16 10:50 | disposition home or self-care (01) | DRG 754 ==
LOC: M ED 15:51 → M ED INP 17:33 → M PSY 18:24
PROVIDERS: ADMIT Psychiatry & Neurology Psychiatry; ATTEND Psychiatry & Neurology Psychiatry
DX: F32.9 Major depressive disorder, single episode, unspecified (principal); J45.909 Unspecified asthma, uncomplicated; D50.9 Iron deficiency anemia, unspecified; K21.9 Gastro-esophageal reflux disease without esophagitis; E03.9 Hypothyroidism, unspecified; Z62.810 Personal history of physical and sexual abuse in childhood; F17.210 Nicotine dependence, cigarettes, uncomplicated; F12.10 Cannabis abuse, uncomplicated; F43.10 Post-traumatic stress disorder, unspecified; K59.00 Constipation, unspecified; M25.569 Pain in unspecified knee; M54.9 Dorsalgia, unspecified; G47.00 Insomnia, unspecified; Z79.51 Long term (current) use of inhaled steroids; Z79.899 Other long term (current) drug therapy; Z81.8 Family history of other mental and behavioral disorders; Z91.14 Patient's other noncompliance with medication regimen; Z88.8 Allergy status to other drugs, medicaments and biological substances

== ENCOUNTER 2016-10-27 22:05 | Emergency (ER) | payer OTHER ==
[~2016-10-27] VITALS: Ht 182.9 cm; Wt 106.2 kg
[~2016-10-27 22:05] MED LIST changes: +ADDE1TAB14 PO; -ADDE5TAB5 PO; -BENCRE EX; -BENCRE EXT; +BENCRE3 EX; +BENCRE3 EXT; +BENZ0.5T PO; -BENZ2TA PO; +BENZ2TAB5 PO; -BENZ5TA PO; -COLA100C3 PO; +COLA100C5 PO; -DOCU100C PO; +DOCU100C16 PO; +ENEMENE16 PR; -ENEMENE3 PR; +ENSULIQ10 PO; -ENSULIQ2 PO; +FERR1TAB8 PO; -FERR325T PO; +HYDR-3363 PO; -HYDR25T PO; +LATU20TA PO; +LITH150C PO; +MOBI4TAB PO; -MOBI7.5T10 PO; -NAPR500T2 PO; +NAPR500T3 PO; +PATIENT COMMENT; -PROA1AER IN; +PROAAER10 IN; -RISP3TAB18 PO; +RISP3TAB20 PO; +TRAZ-136 PO; -TRAZ100T4 PO; -TRAZ150T14 PO; +TRAZ1TAB14 PO; +TRAZ50TA11 PO; -TRAZ50TA4 PO
[2016-10-27 22:06] VITALS: BP 145/69
[2016-10-28] MEDS ORDERED: NAPR500T PO (02:59)
[2016-10-28] MEDS ORDERED: NAPROXEN 250 MG TAB PO ONE (03:00)
== END 2016-10-28 03:14 | disposition home or self-care (01) ==
LOC: M ED 22:05
DX: M25.561 Pain in right knee (principal); F17.200 Nicotine dependence, unspecified, uncomplicated; F41.9 Anxiety disorder, unspecified; F32.9 Major depressive disorder, single episode, unspecified; Z79.899 Other long term (current) drug therapy; Z88.1 Allergy status to other antibiotic agents; Z88.5 Allergy status to narcotic agent; Z88.8 Allergy status to other drugs, medicaments and biological substances

== ENCOUNTER 2016-11-02 17:49 | Emergency (ER) | payer OTHER ==
[~2016-11-02] VITALS: Ht 182.9 cm; Wt 231.4 kg
[~2016-11-02 17:49] MED LIST changes: +NAPR500T PO
[2016-11-02 19:28] LABS: MEAN CORPUSCULAR HEMOGLOBIN 31.6 pg (27.0-33.0); MEAN CORPUSCULAR HGB CONC 34.6 g/dl (32.0-36.5); MEAN CORPUSCULAR VOLUME 91.3 fl (80.0-96.0); RED CELL DISTRIBUTION WIDTH 12.4 % (11.5-14.5); WHITE BLOOD COUNT 6.5 K/mm3 (4.0-10.0)
[2016-11-02 19:49] LABS: METHADONE URINE NEGATIVE (NEGATIVE)
[2016-11-02 20:03] LABS: ALBUMIN 3.8 GM/DL (3.2-5.2); ALBUMIN/GLOBULIN RATIO 1.23 (1.00-1.93); ALKALINE PHOSPHATASE 93 U/L (45-117); ALT/SGPT 25 U/L (12-78); ANION GAP 7 MEQ/L (8-16); AST/SGOT 20 U/L (15-37); BILIRUBIN,DIRECT < 0.1 MG/DL (0.0-0.2); BILIRUBIN,TOTAL 0.3 MG/DL (0.2-1.0); BLOOD UREA NITROGEN 14 MG/DL (7-18); CARBON DIOXIDE LEVEL 26 MEQ/L (21-32); CHLORIDE LEVEL 109 MEQ/L (98-107); CREATININE FOR GFR 0.92 MG/DL (0.70-1.30); GLOMERULAR FILTRATION RATE > 60.0 (>60); GLUCOSE, FASTING 88 MG/DL (70-105); SODIUM LEVEL 142 MEQ/L (136-145); TOTAL PROTEIN 6.9 GM/DL (6.4-8.2)
[2016-11-02 21:32] VITALS: BP 124/61
== END 2016-11-02 21:38 | disposition home or self-care (01) ==
LOC: M ED 17:49
DX: F43.0 Acute stress reaction (principal); F31.9 Bipolar disorder, unspecified; R45.850 Homicidal ideations; F90.1 Attention-deficit hyperactivity disorder, predominantly hyperactive type; G89.29 Other chronic pain; R51 Headache; M54.9 Dorsalgia, unspecified; F17.210 Nicotine dependence, cigarettes, uncomplicated; Z88.8 Allergy status to other drugs, medicaments and biological substances; Z79.899 Other long term (current) drug therapy

== ENCOUNTER 2016-11-04 02:43 | Emergency (ER) | payer OTHER ==
[2016-11-04 02:46] VITALS: BP 152/78
[2016-11-04] MEDS ORDERED: PRED20TA PO (03:34)
[2016-11-04] MEDS ORDERED: methylPREDNISolone INJ 125 MG/2 ML VIAL (J2930) IM ONE (03:45)
--- NOTE | 2016-11-04 07:38 | REP ---
PA and lateral chest: There are no comparisons. The lung ruiz are clear. The cardiac size is normal The adriana, mediastinum, and bony thorax are unremarkable. Impression: Negative PA and lateral chest. Signed by Octavio Regan MD 11/04/2016 07:30 A
== END 2016-11-04 04:00 | disposition home or self-care (01) ==
LOC: M ED 02:43
DX: J20.9 Acute bronchitis, unspecified (principal); R11.0 Nausea; J45.909 Unspecified asthma, uncomplicated; F25.9 Schizoaffective disorder, unspecified; Z88.8 Allergy status to other drugs, medicaments and biological substances; F17.210 Nicotine dependence, cigarettes, uncomplicated; Z79.51 Long term (current) use of inhaled steroids; Z79.899 Other long term (current) drug therapy
CPT/HCPCS: 71020; 96372; 99282; J2930

== ENCOUNTER 2016-12-08 14:33 | Emergency (ER) | payer OTHER ==
[~2016-12-08] VITALS: Ht 185.4 cm; Wt 105.4 kg
[~2016-12-08 14:33] MED LIST changes: +PRED20TA PO
[2016-12-08 18:18] VITALS: BP 134/77
== END 2016-12-08 18:19 | disposition home or self-care (01) ==
LOC: M ED 14:33
DX: F32.9 Major depressive disorder, single episode, unspecified (principal); F99 Mental disorder, not otherwise specified; E07.9 Disorder of thyroid, unspecified; F17.200 Nicotine dependence, unspecified, uncomplicated; Z88.8 Allergy status to other drugs, medicaments and biological substances; Z79.899 Other long term (current) drug therapy; Z79.1 Long term (current) use of non-steroidal anti-inflammatories (NSAID)